=== PATIENT | female | born 1975 | race Caucasian/White ===

== ENCOUNTER 2020-01-28 10:24 | Emergency (ER) | payer OTHER ==
--- OUTSIDE RECORDS SUMMARY | 2020-01-28 10:27 | XMS REPORT | Clinical Summary ---
:1975 Author Organization [facility] Distr ict Address [facility] [place] [address] Care Team Providers Name Role Phone Jenny Schneider MD Primary Care Provider Allergies Active Allergy Reactions Severity Noted Date Comments Morphine Itching 09/17/2009 Medications Medication Sig Dispensed Refills Start Date End Date Status divalproex (DEPAKOTE Take 1 tablet 60 tablet 3 07/14/2016 Active ER) 500 mg extended by mouth 2 release times daily. tabletIndications: Mood disorder risperiDONE (RISPERDAL) Take 1 tablet 30 tablet 2 09/17/2016 Active 2 mg tabletIndications: by mouth at Mood disorder bedtime nightly. clonazePAM (KLONOPIN) Take 1 tablet 40 tablet 0 09/17/2016 Active 0.5 mg by mouth 2 tabletIndications: Mood times daily as disorder needed for Anxiety. estrogens, conjugated, Take 1 tablet 30 tablet 6 12/31/2016 Active (PREMARIN) 0.3 mg by mouth daily. tabletIndications: Menopausal syndrome (hot flashes) pbaebtx-hmxx-krbmxi-ten Take 1 tablet 30 tablet 6 01/06/2017 Active ofo ala (GENVOYA) by mouth daily. [phone] mg tabletIndications: Human immunodeficiency virus (HIV) disease omeprazole (PRILOSEC) Take 1 capsule 30 capsule 6 01/06/2017 Active 20 mg delayed release by mouth daily. capsuleIndications: Peritonitis acetaminophen-codeine Take 1 tablet 60 tablet 1 02/09/2017 Active (TYLENOL #3) 300-30 mg by mouth 2 per tabletIndications: times daily as Chronic pain syndrome needed for Pain. cyclobenzaprine Take 1 tablet 60 tablet 2 02/09/2017 Active (FLEXERIL) 10 mg by mouth 2 tabletIndications: times daily as Spasm of muscle needed for Muscle Spasms. gabapentin (NEURONTIN) Take 2 capsules 150 capsule 2 7 Active 300 mg by mouth every capsuleIndications: morning and Mood disorder every evening, and take 1 capsule at noon. promethazine Take 1 tablet 60 tablet 6 02/09/2017 Ac tive (PHENERGAN) 25 mg by mouth 2 tabletIndications: times daily as Non-intractable needed for vomiting with nausea, Nausea or unspecified vomiting Vomiting. type hydrOXYzine (ATARAX) 25 Take 1 tablet 90 tablet 0 03/29/2018 Active mg tabletIndications: by mouth every Mood disorder 8 hours as needed for Anxiety or Insomnia. FLUoxetine (PROZAC) 20 Take 1 capsule 30 capsule 0 08/17/2018 Active mg capsuleIndications: by mouth daily. Mood disorder OLANZapine (ZYPREXA) 5 Take 2 tablets 30 tablet 0 08/17/2018 Active mg tabletIndications: by mouth at Mood disorder bedtime nightly. divalproex (DEPAKOTE) Take 1 tablet 60 tablet 0 08/17/2018 Active 500 mg delayed release by mouth 2 tabletIndications: Mood times daily. disorder Active Problems Problem Noted Date History of cellulitis 01/06/2017 Peritonitis 12/29/2016 Chronic pain syndrome 11/06/2016 Elbow pain, chronic 05/30/2016 Human immunodeficiency virus (HIV) disease 03/28/2016 Chronic hepatitis C without hepatic coma 03/28/2016 Polysubstance abuse 03/28/2016 Non-intractable vomiting with nausea 03/28/2016 Anxiety 01/13/2015 Mood disorder 01/13/2015 MDD (major depressive disorder), recurrent episode, se zach 01/13/2015 Immunizations Name Administration Dates Next Due PPD 01/19/2015, 11/13/2014 Pneumococcal 13-valent conj 0.5 mL injection 03/28/2016 Tdap Tetanus, diphtheria, acellular pertussis Vaccine 2013 Family History Medical History Relation Name Comments Unknown Fam Hx Father Cancer Mother HAD A HYSTERECTO MY Psychiatry Mother Relation Name Status Comments Daughter Alive Daughter Alive Father Alive Mother Mother Alive Sister Alive Sister Alive Sister Alive Son Alive Social History Tobacco Use Types Packs/Day Years Used Date Current Every Day Smoker Cigarettes 0.5 25 Smokeless Tobacco: Never Used Tobacco Cessation: Ready to Quit: No; Co unseling Given: No Alcohol Use Drinks/Week oz/Week Comments No 0 Standard drinks or equivalent 0.0 H/O liquor. last used 78 days ago Food Insecurity Answer Date Recorded Within the past 12 months, you worried that your food would Never true 01/06/2017 run out before you got money to buy more. Within the past 12 months, the food you bought just didn't N ever true 01/06/2017 last and you didn't have money to get more. Sex Assigned at Date Recorded Not on file Job Start Date Occupation Industry Not on file Not on file Not on file Travel History Travel Start Travel End No recent travel history available. Last Filed Vital Signs Not on file Plan of Treatment Health Maintenance Due Date Last Done Comments Breast Cancer Scrn (Yearly) 2013 IMM Influenza Seasonal Mar to August (>/= 19 yrs) 03/22/2020 Results Not on fileafter 01/27/2019 Insurance Payer Benefit Plan / Subscriber ID Effective Phone Address T ype Group Dates [employer] AMER[employer] STAR xxxxxxxxx 2017-Prese [phone] [address] [id number] [place] [address] [employer] SSI xxxxxxxxx 2017-Prese [phone] [address] MEDICAID [address]MO [address] [id number] [place] [address] [place] 2016-Pres [phone] [facility] ent [address] [place] [address] Amanda Heath Self 1975 <<<renzo Fu (Home) returned mail>>> [place] [id number] Advance Directives Code Status Date Activated Date Inactivated Comments Full Code 08/10/2015 8:22 AM 08/12/2015 11:45 PM
--- OUTSIDE RECORDS SUMMARY | 2020-01-28 10:27 | XMS REPORT | Continuity of Care Document ---
:1975 Author Organization [facility] [place] [employer] Care Team Providers Name Role Phone [facility] [place] [employer] Unavailable Un available Problems Problem Status Onset Classification Date Comments Sourc e Date Reported Z00.[address] ENCNTR FOR Active [facility] MEDICAL EXAM W/ Medications No Data Provided for This Section Allergies, Adverse Reactions, Alerts No Known Medication Allergies Immunizations No Data Provided for This Section Results No Data Provided for This Section Pathology Reports No Data Provided for This Section Diagnostic Reports No Data Provided for This Section Consultation Notes No Data Provided for This Section Discharge Summaries No Data Provided for This Section History and Physicals No Data Provided for This Section Vital Signs No Data Provided for This Section Encounters Location Location Encounter Encounter Reason Attending ADM CA Stat us Source Details Type Number For Provider Date Date Visit [facility] Outpatient [id number] Fatimah 05/01 05/02 [facility] [place] /2014 [facility] Procedures No Data Provided for This Section Assessment and Plan No Data Provided for This Section Plan of Care No Data Provided for This Section Social History Social History Date Source No data available for this 05/02/2015 [facility] section Family History No Data Provided for This Section Advance Directives No Data Provided for This Section Functional Status No Data Provided for This Section
--- OUTSIDE RECORDS SUMMARY | 2020-01-28 10:28 | XMS REPORT | Continuity of Care Document ---
:1975 Author Organization [facility] t Address [address] [place] [address] Care Team Providers Name Role Phone UNKNOWN Primary Care Physician Unavailable Amish FLORES Attending Clinician Unavailable Francis Song Attending Clinician Amish FLORES Admitting Clinician Unavailable Problems Condition Condition Condition Status Onset Resolution Last Treating Co mments Source Name Details Category Date Date Treatment Clinician Date Z00.00 Diagnosis Active 2014-062015-05-01 Mem oria 10 13:32:00 l Z00.00 00:00: Yfn 00 Active 05/01/2015 [facility] ENCNTR FOR Diagnosis Active 2015-05-01 Memoria GENERAL 13:32:00 l ADULT ENCNTR [place] MEDICAL FOR EXAM W/ GENERAL ADULT MEDICAL EXAM W/ Active [facility] Allergies, Adverse Reactions, Alerts This patient has no known allergies or adverse reactions. Social History Social Habit Start Date Stop Date Quantity Comments Source Social History 2015-05-02 2015-05-02 [facility] 05:59:00 05:59:00 Medications This patient has no known medications. Procedures This patient has no known procedures. Encounters Start End Encounter Admission Attending Care Care Encounter Source Date/Time Date/Time Type Type Clinicians Facility Department ID 2016-03-07 Inpatient [facility] MED [id number] St. 15:30:00 [facility] 2018-05-03 2018-05-03 Outpatient [facility] [id number] [facility] 00:00:00 00:00:00 2018-04-07 2018-04-07 Outpatient [facility] [id number] [facility] 00:00:00 00:00:00 2018-03-29 2018-03-29 Outpatient [facility] [id number] [facility] 15:40:27 15:40:27 2018-03-29 2018-03-29 Outpatient [facility] [id number] [facility] [place] 15:07:58 15:07:58 2018-03-29 2018-03-29 Outpatient [facility] [id number] [facility] [place] 14:41:19 14:41:19 2015-05-01 2015-05-01 Outpatient [facility] [id number] 13:22:00 23:59:00 Fatimah Myersamish Results Test Description Test Time Test Comments Results Result Comments Source Culture, Blood 2016-12-29 Specimen: Routine 19:17:00 BloodCollected: 12/24/2016 12:51 Status: Final Last Updated: 12/29/2016 19:17 (1) ER Bed 16 Culture Result (Final) (Final) No Growth After 5 Days Culture, Blood 2016-12-29 Specimen: Routine 19:17:00 BloodCollected: 12/24/2016 12:15 Status: Final Last Updated: 12/29/2016 19:17 (1) ER Bed 16 Culture Result (Final) (Final) No Growth After 5 Days Olden T-Lymph-CD4 2016-12-26 17:23:00 Test Item Value Reference Range Interpretation Comme nts % CD 4 Pos. Lymph. (test code = 712313) 36.2 % 30.8-58.5 N Absolute CD 4 Olden (test code = 537380) 543 /uL 359-1519 N WBC (test code = 285074) 10.2 x10E3/uL 3.4-10.8 N RBC (test code = 490737) 3.31 x10E6/uL 3.77-5.28 L Hemoglobin (test code = 280408) 10.6 g/dL 11.1-15.9 L Hematocrit (test code = 159634) 30.9 % 34.0-46.6 L MCV (test code = 792268) 93 fL 79-97 N MCH (test code = 969431) 32.0 pg 26.6-33.0 N MCHC (test code = 958861) 34.3 g/dL 31.5-35.7 N RDW (test code = 578664) 14.5 % 12.3-15.4 N Platelets (test code = 317695) 201 x10E3/uL 150-379 N Neutrophils (test code = 986700) 75 % Lymphs (test code = 499574) 15 % Monocytes (test code = 552143) 10 % Eos (test code = 518199) 0 % Basos (test code = 442395) 0 % Neutrophils (Absolute) (test code = 272618) 7.6 x10E3/uL 1.4-7.0 H Lymphs (Absolute) (test code = 694154) 1.5 x10E3/uL 0.7-3.1 N Monocytes(Absolute) (test code = 178990) 1.1 x10E3/uL 0.1-0.9 H Eos (Absolute) (test code = 773441) 0.0 x10E3/uL 0.0-0.4 N Baso (Absolute) (test code = 813539) 0.0 x10E3/uL 0.0-0.2 N Immature Granulocytes (test code = 818167) 0 % Immature Grans (Abs) (test code = 167741) 0.0 x10E3/uL 0.0-0.1 N Valproic Acid (Depakote),[id number] 09:53:00 Test Item Value Reference Range Interpretation Comments Valproic Acid (test code = VALP) 104.1 ug/mL 50.0-100.0 H Ammonia, [id number] 08:01:00 Test Item Value Reference Range Interpretation Comments Ammonia (test code = NH3) 101.0 umol/L 11.0-35.0 H Glycosylated [id number] 07:07:00 Test Item Value Reference Range Interpretation Comments HBA1c (test code = HBA1C) 4.8 % 4.8-5.9 N Partial Thromboplastin [id number] 06:51:00 Test Item Value Reference Range Interpretation Comments aPTT (test code = PTT) 31.30 seconds 24.39-37.25 N Magnesium, [id number] 06:48:00 Test Item Value Reference Range Interpretation Comments Magnesium (test code = MG) 2.4 mg/dL 1.7-2.5 N Comprehensive Metabolic [id number] 06:48:00 Test Item Value Reference Range Interpretation Comments Sodium (test code = 132 mmol/L 135-145 L NA) Potassium (test 3.6 mmol/L 3.5-5.1 N code = K) Chloride (test code 100 mmol/L 98-105 N = CL) Carbon Dioxide 23 mmol/L 22-29 N (test code = CO2) Glucose (test code 91 mg/dL 70-115 N = GLU) Blood Urea Nitrogen 11 mg/dL 6-20 N (test code = BUN) Creatinine (test 0.6 mg/dL 0.5-0.9 N code = CREAT) Calcium (test code 8.4 mg/dL 8.3-10.5 N = CA) Prot Total (test 6.4 g/dL 6.4-8.3 N code = TP) Albumin (test code 3.5 g/dL 3.5-5.2 N = ALB) A/G Ratio (test 1.2 Ratio code = AGRATIO) Globulin (test code 2.9 2.9-3.1 N = GLOB) Bili Total (test 0.6 mg/dL 0.1-0.9 N code = TBIL) Alk Phos (test code 64 U/L 35-104 N = APHOS) AST (test code = 28 U/L 1-32 N AST) ALT (test code = 23 U/L 1-33 N ALT) BUN/Creatinine 18.3 Ratio (test code = BCRATIO) Anion Gap (test 9 mmol/L 7-16 N code = AGAP) Estimated GFR (test >60 eGFR (es timated code = GFR) mL/min/1.73m2 Glomerular Milo tration Rate) is an est imated value,calculate d from the patient's s chinedu creatinine usin g the MDRD equation.I t is NOT the patient 's actual GFR. The eGFR provides a more clinicallyusefu l measure of kidn ey disease than se rum creatinine alone.This calculation bhavani es sex and race into account, if the informationis provided. If th e race is not provided , and the patient isAfrican-Ameri can, multiply by 1.2 12. If sex is not prov ided, and thepatient is female, multipl y by 0.742. Results for patients <18 ye ars ofage have not been validated by th e MDRD study and shoul d be interpretedwith caution.eGFR Re sult Interpretation: eGFR > or = 60 is in t he Normal RangeeGF R < 60 may mean kidney diseaseeGFR < 1 5 may mean kidney failureRange s recommended by the National Kidney Foundation,http ://nkd ep.nih.gov CK [id number] 06:48:00 Test Item Value Reference Range Interpretation Comments CK (test code = CK) 167 U/L 26-192 N [id number] 06:48:00 Test Item Value Reference Range Interpretation Comments Phosphorus (test code = PO4) 2.3 mg/dL 2.70-4.50 L Prothrombin [id number] 06:47:00 Test Item Value Reference Range Interpretation Comments PT (test code = PT) 11.90 seconds 9.78-13.35 N INR (test code = INR) 1.04 Ratio 0.6-1.2 N CBC with [id number] 06:36:00 Test Item Value Reference Range Interpretation Comments WBC (test code = WBC) 9.9 K/cumm 4.4-10.5 N RBC (test code = RBC) 3.26 M/cumm 3.75-5.20 L Hemoglobin (test code = HGB) 10.3 gm/dL 12.2-14.8 L Hematocrit (test code = HCT) 31.0 % 36.5-44.4 L MCV (test code = MCV) 95.3 fL 80-100 N MCH (test code = MCH) 31.6 pg 27.0-32.5 N MCHC (test code = MCHC) 33.1 g/dL 32.0-37.5 N RDW (test code = RDW) 14.5 % 11.5-14.5 N Platelet Count (test code = 192 K/cumm 140-440 N PLTCT) MPV (test code = MPV) 8.4 fL Diff Method (test code = DIFFM) Auto Neutrophil (test code = NEUT) 75.0 % 36-70 H Lymphocyte (test code = LYMPH) 17.5 % 12-44 N Monocyte (test code = MONO) 6.6 % 0-11 N Eosinophil (test code = EOS) 0.7 % 0-7 N Basophil (test code = BASO) 0.2 % 0-2 N Neutro Abs (test code = ANEUT) 7.4 K/cumm 1.6-7.4 N Lymph Abs (test code = ALYMPH) 1.7 K/cumm 0.5-4.6 N [place] Abs (test code = AMONO) 0.7 K/cumm 0.0-1.2 N Eos Abs (test code = AEOS) 0.07 K/cumm 0.00-0.74 N Baso Abs (test code = ABASO) 0.0 K/cumm 0.00-0.21 N POC Glucose, [id number] 20:36:00 Test Item Value Reference Range Interpretation Comments POC Glucose (test 100 mg/dL 70-115 N If you con gear repairer your code = POCGLUC) patient crit ically ill, the [place] Accu- Chek InformII meters hould not be used for Glu cose determinations. Draw a venous Glucose and send to the Main Lab for Analysis. POC Glucose, [id number] 17:15:00 Test Item Value Reference Range Interpretation Comments POC Glucose (test 93 mg/dL 70-115 N Notify RN or MDIf you code = POCGLUC) consider you r patient critically ill, the [place] Accu-Chek InformII metershould not be used for Glucose determinations. Draw a venous Glucose and send to the Main Lab for Analysis. [id number] 17:11:00 Test Item Value Reference Range Interpretation Comments Potassium (test code 2.9 mmol/L 3.5-5.1 LL VERIFIE D BY REPEAT = K) TESTINGREAD SUSANNAH K LAB VALUEST KATHERINE ELLSWORTH 17:11 7 OG [id number] 10:49:00 Test Item Value Reference Range Interpretation Comments Amphetamine (test code Negative Negative N For d iagnostic purposes = AMPH) only, positive results should always b e assessedin conjunctionwith the patient's medic al history,clinica l examination and otherfindings.T o fulfill legal requirements, a more specific altern ate chemical method must be used inorder to obtain a Confirmed erick lytical result. GC/MS i s the preferred confi rmatory method. Barbiturates (test Negative Negative N code = JOSE LUIS) Benzodiazepine (test Negative Negative N code = MARTHA) Cocaine (test code = POSITIVE Negative A COCA) Methadone (test code = Negative Negative N MTHD) Opiates (test code = Negative Negative N OPIA) PCP (test code = PCP) POSITIVE Negative A Propoxyphene (test Negative Negative N code = PROPOX) THC (test code = THC) POSITIVE Negative A Urinalysis [id number] 09:18:00 Test Item Value Reference Range Interpretation Comments Color (test code = COLOR) Yellow Yellow,Straw,Pl N yellow Clarity (test code = Clear Clear N CLAR) Specific [place] (test 1.012 1.001-1.035 N code = SPGR) pH (test code = PH) 7.0 5.0-9.0 N Ketone (test code = KET) 5 mg/dL Negative A Glucose (test code = Negative mg/dL Negative N GLUCUR) Protein (test code = 25 mg/dL Negative A PROT) Bilirubin (test code = Negative mg/dL Negative N BILI) Occult Blood (test code = Mod to Large Negative A UDOB) Urobilinogen (test code = 1.0 mg/dL 0.2-1.0 N UROB) Nitrite (test code = NIT) Positive Negative A Leuk Esterase (test code Moderate Negative A = LEUK) Micros Exam (test code = Indicated MEXAM) Epithelial Cells (test 3-5 /LPF 0-30 A code = EPI) WBC, Urine (test code = 6-9 /HPF 0-5 A UWBC) RBC, Urine (test code = 0-3 /HPF 0-5 A URBC) Bacteria (test code = Moderate /HPF BACT) CK [id number] 09:12:00 Test Item Value Reference Range Interpretation Comments CK (test code = CK) 389 U/L 26-192 H CK [id number] 09:12:00 Test Item Value Reference Range Interpretation Comments CK (test code = CK) 389 U/L 26-192 H CKMB (test code = CKMB) 7.6 ng/mL 0.0-2.8 H CKMB% (test code = CKMBP) 2.0 % 0.0-3.4 N Troponin [id number] 09:11:00 Test Item Value Reference Range Interpretation Comments Troponin T (test code = KARSTEN) <0.010 ng/mL 0.000-0.090 N CBC with [id number] 09:01:00 Test Item Value Reference Range Interpretation Comments WBC (test code = WBC) 18.6 K/cumm 4.4-10.5 H RBC (test code = RBC) 3.80 M/cumm 3.75-5.20 N Hemoglobin (test code = HGB) 11.7 gm/dL 12.2-14.8 L Hematocrit (test code = HCT) 35.3 % 36.5-44.4 L MCV (test code = MCV) 92.8 fL 80-100 N MCH (test code = MCH) 30.9 pg 27.0-32.5 N MCHC (test code = MCHC) 33.3 g/dL 32.0-37.5 N RDW (test code = RDW) 14.9 % 11.5-14.5 H Platelet Count (test code = 248 K/cumm 140-440 N PLTCT) MPV (test code = MPV) 8.9 fL Diff Method (test code = DIFFM) Auto Neutrophil (test code = NEUT) 76.2 % 36-70 H Lymphocyte (test code = LYMPH) 17.5 % 12-44 N Monocyte (test code = MONO) 5.1 % 0-11 N Eosinophil (test code = EOS) 0.8 % 0-7 N Basophil (test code = BASO) 0.3 % 0-2 N Neutro Abs (test code = ANEUT) 14.2 K/cumm 1.6-7.4 H Lymph Abs (test code = ALYMPH) 3.3 K/cumm 0.5-4.6 N [place] Abs (test code = AMONO) 1.0 K/cumm 0.0-1.2 N Eos Abs (test code = AEOS) 0.15 K/cumm 0.00-0.74 N Baso Abs (test code = ABASO) 0.1 K/cumm 0.00-0.21 N Comprehensive Metabolic [id number] 08:53:00 Test Item Value Reference Range Interpretation Comments Sodium (test code = 131 mmol/L 135-145 L NA) Potassium (test 2.6 mmol/L 3.5-5.1 LL code = K) Chloride (test code 88 mmol/L 98-105 L = CL) Carbon Dioxide 26 mmol/L 22-29 N (test code = CO2) Glucose (test code 85 mg/dL 70-115 N = GLU) Blood Urea Nitrogen 16 mg/dL 6-20 N (test code = BUN) Creatinine (test 0.8 mg/dL 0.5-0.9 N code = CREAT) Calcium (test code 9.1 mg/dL 8.3-10.5 N = CA) Prot Total (test 7.2 g/dL 6.4-8.3 N code = TP) Albumin (test code 4.0 g/dL 3.5-5.2 N = ALB) A/G Ratio (test 1.3 Ratio code = AGRATIO) Globulin (test code 3.2 2.9-3.1 H = GLOB) Bili Total (test 1.1 mg/dL 0.1-0.9 H code = TBIL) Alk Phos (test code 80 U/L 35-104 N = APHOS) AST (test code = 38 U/L 1-32 H AST) ALT (test code = 27 U/L 1-33 N ALT) BUN/Creatinine 20.0 Ratio (test code = BCRATIO) Anion Gap (test 17 mmol/L 7-16 H code = AGAP) Estimated GFR (test >60 eGFR (es timated code = GFR) mL/min/1.73m2 Glomerular Milo tration Rate) is an est imated value,calculate d from the patient's s chinedu creatinine usin g the MDRD equation.I t is NOT the patient 's actual GFR. The eGFR provides a more clinicallyusefu l measure of kidn ey disease than se rum creatinine alone.This calculation bhavani es sex and race into account, if the informationis provided. If th e race is not provided , and the patient isAfrican-Ameri can, multiply by 1.2 12. If sex is not prov ided, and thepatient is female, multipl y by 0.742. Results for patients <18 ye ars ofage have not been validated by th e MDRD study and riyaul d be interpretedwith caution.eGFR Re sult Interpretation: eGFR > or = 60 is in t he Normal RangeeGF R < 60 may mean kidney diseaseeGFR < 1 5 may mean kidney failureRange s recommended by the National Kidney Foundation,http ://nkd ep.nih.gov Alcohol/Ethanol, [id number] 08:52:00 Test Item Value Reference Range Interpretation Comments Alcohol, Ethyl <0.01 g/dL 0.00-0.01 N Intoxicated 0.080 (test code = ETOH) g/dL or m ore [id number] 08:52:00 Test Item Value Reference Range Interpretation Comments Lipase (test code = LIP) 23 U/L 13-60 N Lactic Acid [id number] 08:43:00 Test Item Value Reference Range Interpretation Comments Lactic Acid, Bld (test code = LAC) 1.2 mmol/L 0.5-1.9 N
[2020-01-28 11:21] LABS: Absolute Lymphocytes (CBC) 2.1 K/uL (0.7-4.9); Basophils % 0.9 % (0-1.3); Lymphocytes % 38.4 % (15.3-44.8); MPV 8.1 fL (7.6-11.3); RBC Red Blood Cell Count 4.69 M/uL (3.86-4.86)
[2020-01-28 11:24] LABS: Urine Blood 2+ (NEG); Urine Glucose NEGATIVE (NEG); Urine Protein 1+ (NEG); Urine Specific Gravity 1.025 (1.005-1.030); Urine pH 6.5 (5.0-7.0)
[2020-01-28] MEDS ORDERED: NA CHLORIDE 0.9% 1,000 ML ONE (11:31)
[2020-01-28] MEDS ORDERED: FENTANYL CITR 100 MCG/2 ML ONE (11:31)
[2020-01-28] MEDS ORDERED: ONDANSETRON 4 MG/2 ML VIAL ONE (11:31)
[2020-01-28] MEDS ORDERED: DICYCLOMINE HCL 10 MG CAP ONE (11:31)
[2020-01-28 11:33] LABS: Urine Bacteria >50 /HPF (<20); Urine Culture Reflex Order REFLEXED
[2020-01-28 11:40] LABS: Albumin 3.1 g/dL (3.4-5.0); Bilirubin Direct 0.1 mg/dL (0-0.2); Bilirubin Total 0.3 mg/dL (0.2-1.0); Potassium 3.7 mmol/L (3.5-5.1); Protein, Total 8.3 g/dL (6.4-8.2)
[2020-01-28] MEDS ORDERED: PROMETHAZINE INJ 25 MG/ML AMP ONE (11:46)
[2020-01-28] MEDS ORDERED: CEFTRIAXONE/SWI 1gm 1 GM/10 ML SYR ONE (11:46)
--- NOTE | 2020-01-28 12:25 | RAD REPORT ---
EXAM DESCRIPTION: RAD - Chest Single View - 01/28/2020 11:52 am CLINICAL HISTORY: COUGH, body aches, chills, decreased taste and smell COMPARISON: AP chest July 2010 TECHNIQUE: AP portable chest image was obtained 01/28/2020 11:52 am . FINDINGS: Minimal right apical scarring changes are present not substantially different from compari son. No focal consolidation or mass. Hilar regions are normal. No ground-glass opacification seen whi ch is the typical appearance for a COVID-19 pneumonia. Heart and vasculature are normal. No measurabl e pleural effusion and no pneumothorax. No acute bony abnormality seen. No acute aortic findings susp ected. IMPRESSION: No focal infiltrate. No parenchymal findings suggestive of a COVID-[address] chest imaging is more sensitive for early or mild COVID-19 or other similar pneumonia findings. Co ntrast-enhanced CT chest imaging could be performed if it would alter medical management.
--- NOTE | 2020-01-28 13:16 | ER ---
Nurse's Notes [facility] Name: Amanda Singh Age: 44 yrs Sex: Female : 1975 Arrival Date: 01/28/2020 Time: 10:27 Bed 19 Private MD: Diagnosis: Encounter for screening for other viral diseases;Gastroenteritis;Urinary tract infection, site not specified Presentation: 01/27 10:38 Chief complaint: Patient states: Abdominal pain all over with N/V/D, pt states no taste ah or smell. She complains that she is achy all over and having night sweats. Productive cough also noted. Coronavirus screen: Client denies travel out of the [place] in the last 14 days. cough unrelated to allergies, diarrhea, muscle pain, nausea, loss of taste or smell, vomiting. Client presents with at least one sign or symptom that may indicate coronavirus-19. Standard/surgical mask placed on the client. Provider contacted for isolation considerations. Ebola Screen: No symptoms or risks identified at this time. Initial Sepsis Screen: Does the patient meet any 2 criteria? No. Patient's initial sepsis screen is negative. Risk Assessment: Do you want to hurt yourself or someone else? Patient reports no desire to harm self or others. Onset of symptoms is unknown. 10:38 Method Of Arrival: Ambulatory 10:38 Acuity: ISAI 3 13:45 Initial Sepsis Screen: Does the patient have a suspected source of infection? Yes: ah Dysuria/Frequency/Urgency/UTI. Historical: - Allergies: 10:42 No Known Allergies; - Home Meds: 10:42 Phenergan Oral [Active]; - PMHx: 10:42 Hepatitis; HIV; - PSHx: 10:42 Hysterectomy; - Immunization history:: Adult Immunizations up to date. - Social history:: Smoking status: Patient reports the use of cigarette tobacco products, smokes one-half pack cigarettes per day, Patient uses alcohol, occasionally. Patient/guardian denies using street drugs. Screenin:07 Abuse screen: Denies threats or abuse. Nutritional screening: No deficits noted. Tuberculosis screening: No symptoms or risk factors identified. Fall Risk None identified. Assessment: 11:04 General: Appears uncomfortable, Behavior is cooperative, anxious. Pain: Complains of pain in all over generalized. Neuro: Level of Consciousness is awake, alert, obeys commands, Oriented to person, place, time, situation. Cardiovascular: Capillary refill < 3 seconds Patient's skin is warm and dry. Respiratory: Airway is patent Respiratory effort is even, unlabored. GI: Bowel sounds present X 4 quads. Abdomen is tender to palpation X 4 quads. Reports diarrhea, nausea, vomiting. Derm: Skin is intact. Musculoskeletal: Reports pain in muscle aches all over. 12:30 Reassessment: Pt resting in bed at this time. No vomiting noted. Awaiting lab results. 13:43 Reassessment: Discharge instructions given to pt, education given on prescriptions and the need to quarantine. Pt voiced understanding. Vital Signs: 10:38 BP 148 / 106; Pulse 84; Resp 18; Temp 98.2; Pulse Ox 99% ; Height 5 ft. 7 in. (170.18 cm); 11:15 BP 129 / 101; Pulse 68; Resp 16; Pulse Ox 98% ; ah 13:00 BP 124 / 81; Pulse 49; Resp 16; Pulse Ox 100% ; ah ED Course: 10:27 Patient arrived in ED. ag5 10:30 Kilo Hand PA is PHCP. jr8 10:30 Tim Philip MD is Attending Physician. jr 10:31 Malia Frankel, RN is Primary Nurse. 10:41 Triage completed. ah 11:07 Arm band placed on right wrist. ah 11:07 Patient has correct armband on for positive identification. Bed in low position. Call light in reach. Side rails up X 1. Pulse ox on. NIBP on. 11:45 Inserted saline lock: 22 gauge antecubital area, using aseptic technique. 11:46 COVID-19 Sent. 13:44 No provider procedures requiring assistance completed. IV discontinued, intact, bleeding controlled, No redness/swelling at site. Pressure dressing applied. Administered Medications: 11:34 Drug: Bentyl 20 mg Route: PO; 11:35 Not Given (Physician Discretion): Zofran (Ondansetron) 4 mg IVP once; over 2 minutes [facility] 11:35 Drug: fentaNYL (PF) 25 mcg Route: IVP; Site: left antecubital; 12:55 Follow up: Response: No adverse reaction 11:35 Drug: NS 0.9% 1000 ml Route: IV; Rate: 1000 ml; Site: left antecubital; 12:54 Follow up: Response: No adverse reaction; IV Status: Completed infusion 11:40 Drug: Promethazine 12.5 mg Route: IVP; Site: left antecubital; 12:54 Follow up: Response: No adverse reaction 11:40 Drug: Rocephin 1 grams Route: IV; Rate: calculated rate; Site: left antecubital; 12:54 Follow up: Response: No adverse reaction; IV Status: Completed infusion Outcome: 13:15 Discharge ordered by MD. curtis 13:45 Discharged to home ambulatory. 13:45 Condition: good 13:45 Discharge instructions given to patient, Instructed on discharge instructions, follow up and referral plans. Demonstrated understanding of instructions, follow-up care, medications, Prescriptions given X 3. 13:45 Patient left the ED. Signatures: Kilo Hand PA PA jr8 Argentina Schmitz 5 Malia Frankel, RN RN
--- NOTE | 2020-01-28 13:16 | EDPHYS ---
Physician Documentation [facility] Name: Amanda Singh Age: 44 yrs Sex: Female : 1975 Arrival Date: 01/28/2020 Time: 10:27 Bed 19 Private MD: ED Physician Tim Philip HPI: 01/27 11:28 This 44 yrs old Female presents to ER via Ambulatory with complaints of jr8 Nausea/Vomiting/Diarrhea, Body Aches. 11:28 The patient presents to the emergency department with nausea, vomiting, diarrhea, jr8 abdominal pain. Onset: The symptoms/episode began/occurred gradually, 1 week(s) ago. Possible causes: unknown. The symptoms are aggravated by nothing. The symptoms are alleviated by nothing. Associated signs and symptoms: Pertinent positives: loss of taste and smell. Severity of symptoms: At their worst the symptoms were moderate in the emergency department the symptoms are unchanged. The patient has not experienced similar symptoms in the past. The patient has not recently seen a physician. Historical: - Allergies: 10:42 No Known Allergies; - Home Meds: 10:42 Phenergan Oral [Active]; - PMHx: 10:42 Hepatitis; HIV; - PSHx: 10:42 Hysterectomy; - Immunization history:: Adult Immunizations up to date. - Social history:: Smoking status: Patient reports the use of cigarette tobacco products, smokes one-half pack cigarettes per day, Patient uses alcohol, occasionally. Patient/guardian denies using street drugs. ROS: 11:28 Eyes: Negative for injury, pain, redness, and discharge, ENT: Negative for injury, jr8 pain, and discharge, Neck: Negative for injury, pain, and swelling, Cardiovascular: Negative for chest pain, palpitations, and edema, Respiratory: Negative for shortness of breath, cough, wheezing, and pleuritic chest pain, Back: Negative for injury and pain, MS/Extremity: Negative for injury and deformity, Skin: Negative for injury, rash, and discoloration. 11:28 Constitutional: Positive for body aches, chills, fever. 11:28 Abdomen/GI: Positive for nausea, vomiting, and diarrhea, abdominal cramps, Negative for hematemesis, black/tarry stool, rectal pain, rectal bleeding, bowel incontinence, flatulence. 11:28 Neuro: Positive for headache. Exam: 11:28 Eyes: Pupils equal round and reactive to light, extra-ocular motions intact. Lids and jr8 lashes normal. Conjunctiva and sclera are non-icteric and not injected. Cornea within normal limits. Periorbital areas with no swelling, redness, or edema. ENT: Nares patent. No nasal discharge, no septal abnormalities noted. Tympanic membranes are normal and external auditory canals are clear. Oropharynx with no redness, swelling, or masses, exudates, or evidence of obstruction, uvula midline. Mucous membranes moist. Neck: Trachea midline, no thyromegaly or masses palpated, and no cervical lymphadenopathy. Supple, full range of motion without nuchal rigidity, or vertebral point tenderness. No Meningismus. Cardiovascular: Regular rate and rhythm with a normal S1 and S2. No gallops, murmurs, or rubs. Normal PMI, no JVD. No pulse deficits. Respiratory: Lungs have equal breath sounds bilaterally, clear to auscultation and percussion. No rales, rhonchi or wheezes noted. No increased work of breathing, no retractions or nasal flaring. Abdomen/GI: Soft, non-tender, with normal bowel sounds. No distension or tympany. No guarding or rebound. No evidence of tenderness throughout. Back: No spinal tenderness. No costovertebral tenderness. Full range of motion. Skin: Warm, dry with normal turgor. Normal color with no rashes, no lesions, and no evidence of cellulitis. MS/ Extremity: Pulses equal, no cyanosis. Neurovascular intact. Full, normal range of motion. Neuro: Awake and alert, GCS 15, oriented to person, place, time, and situation. Cranial nerves II-XII grossly intact. Motor strength 5/5 in all extremities. Sensory grossly intact. Cerebellar exam normal. Vital Signs: 10:38 BP 148 / 106; Pulse 84; Resp 18; Temp 98.2; Pulse Ox 99% ; Height 5 ft. 7 in. (170.18 ah cm); 11:15 BP 129 / 101; Pulse 68; Resp 16; Pulse Ox 98% ; ah 13:00 BP 124 / 81; Pulse 49; Resp 16; Pulse Ox 100% ; ah MDM: 10:30 Patient medically screened. [facility] 13:13 Data reviewed: vital signs, nurses notes, lab test result(s), radiologic studies, plain [facility] films. Data interpreted: Pulse oximetry: on room air is 100 %. Interpretation: normal. Counseling: I had a detailed discussion with the patient and/or guardian regarding: the historical points, exam findings, and any diagnostic results supporting the discharge/admit diagnosis, lab results, radiology results, the need for outpatient follow up, a family practitioner, to return to the emergency department if symptoms worsen or persist or if there are any questions or concerns that arise at home. ED course: Discussed with patient that she most likely has COVID based on symptoms along with having UTI. Will be on Abx for uti along with nausea medications and something for pain. Need to isolate for now until swab comes back and f/u with pcp. If worse to come back to ED . 01/27 10:41 Order name: Basic Metabolic Panel [facility] 01/27 10:41 Order name: CBC with Diff [facility] 01/27 10:41 Order name: Hepatic Function [facility] 01/27 10:41 Order name: Lipase [facility] 01/27 10:41 Order name: Urine Microscopic Only [facility] 01/27 11:10 Order name: Urine Dipstick--Ancillary (enter results) 01/27 11:10 Order name: Urine --Ancillary (enter results) 01/27 11:15 Order name: COVID-19 [facility] 01/27 11:24 Order name: Urine --Ancillary; Complete Time: 11:27 [facility] 01/27 11:24 Order name: Urine Dipstick-Ancillary; Complete Time: 11:27 [facility] 01/27 11:25 Order name: CBC with Automated Diff; Complete Time: 11:27 [facility] 01/27 11:34 Order name: Urine Microscopic Only; Complete Time: 11:35 [facility] 01/27 11:40 Order name: Basic Metabolic Panel; Complete Time: 12:03 [facility] 01/27 11:40 Order name: Liver (Hepatic) Function; Complete Time: 12:03 [facility] 01/27 10:41 Order name: IV Saline Lock; Complete Time: 11:14 [facility] 01/27 10:41 Order name: Labs collected and sent; Complete Time: 11:14 [facility] 01/27 10:41 Order name: Urine Dipstick-Ancillary (obtain specimen); Complete Time: 10:43 [facility] 01/27 10:41 Order name: Urine Test (obtain specimen); Complete Time: 10:43 [facility] 01/27 11:12 Order name: Labs - recollect needed: recollect labs/ lab is printing labels of what eb needs recollected; Complete Time: 11:16 01/27 11:15 Order name: XRAY Chest (1 view) [facility] 01/27 11:40 Order name: Lipase; Complete Time: 12:03 [facility] 01/27 12:26 Order name: RAD; Complete Time: 13:04 EDMS Administered Medications: 11:34 Drug: Bentyl 20 mg Route: PO; ah 11:35 Not Given (Physician Discretion): Zofran (Ondansetron) 4 mg IVP once; over 2 minutes [facility] 11:35 Drug: fentaNYL (PF) 25 mcg Route: IVP; Site: left antecubital; 12:55 Follow up: Response: No adverse reaction 11:35 Drug: NS 0.9% 1000 ml Route: IV; Rate: 1000 ml; Site: left antecubital; ah 12:54 Follow up: Response: No adverse reaction; IV Status: Completed infusion 11:40 Drug: Promethazine 12.5 mg Route: IVP; Site: left antecubital; ah 12:54 Follow up: Response: No adverse reaction 11:40 Drug: Rocephin 1 grams Route: IV; Rate: calculated rate; Site: left antecubital; 12:54 Follow up: Response: No adverse reaction; IV Status: Completed infusion Disposition: 16:28 Co-signature as Attending Physician, Tim Philip MD. rn Disposition: 01/28/20 13:15 Discharged to Home. Impression: Encounter for screening for other viral diseases, Gastroenteritis, Urinary tract infection, site not specified. - Condition is Stable. - Discharge Instructions: Urinary Tract Infection, Adult, COVID-19. - Prescriptions for Bentyl 20 mg Oral Tablet - take 1 tablet by ORAL route every 6 hours As needed; 20 tablet. Zofran 4 mg Oral Tablet - take 1 tablet by ORAL route every 12 hours As needed; 20 tablet. Bactrim DS 800- 160 mg Oral Tablet - take 1 tablet by ORAL route every 12 hours for 10 days; 20 tablet. - Medication Reconciliation Form, Thank You Letter, Antibiotic Education, Prescription Opioid Use form. - Follow up: Private Physician; When: 2 - 3 days; Reason: Recheck today's complaints, Continuance of care, Re-evaluation by your physician. - Problem is new. - Symptoms have improved. Signatures: Dispatcher [employer] EDTim Low MD MD rn Roszak, Josh, PA PA jr8 Allyssa Mcfarlane Amy RN RN Corrections: (The following items were deleted from the chart) 13:45 13:15 01/28/2020 13:15 Discharged to Home. Impression: Encounter for screening for other viral diseases; Gastroenteritis; Urinary tract infection, site not specified. Condition is Stable. Forms are Medication Reconciliation Form, Thank You Letter, Antibiotic Education, Prescription Opioid Use. Follow up: Private Physician; When: 2 - 3 days; Reason: Recheck today's complaints, Continuance of care, Re-evaluation by your physician. Problem is new. Symptoms have improved. jr8
[2020-01-28 13:53] VITALS: TEMP 98.2
[2020-01-28 13:55] VITALS: BP 124/81; O2SAT 100
== END 2020-01-28 13:45 | disposition home or self-care (01) ==
LOC: ER 10:24
DX: K52.9 Noninfective gastroenteritis and colitis, unspecified (principal); Z20.828 Contact with and (suspected) exposure to other viral communicable diseases; N39.0 Urinary tract infection, site not specified; F17.210 Nicotine dependence, cigarettes, uncomplicated; Z21 Asymptomatic human immunodeficiency virus [HIV] infection status
CPT/HCPCS: 96365; 87088; 85025; 87086; 80048; 36415; 81025; 80076; 87077 ×2; 87186 ×2; 83690; 71045; 96375; 99284; U0002; J2550; J3010; J0696; J7030; 81003; 81015; J2405

== ENCOUNTER 2022-11-19 11:21 | Emergency (ER) | payer OTHER ==
--- OUTSIDE RECORDS SUMMARY | 2022-11-19 11:27 | XMS REPORT | Continuity of Care Document ---
:1975 Author Organization [facility] t Address [address] [place] [address] [place] [id number] Care Team Providers Name Role Phone MARIAMA LAND Primary Care Physician Unavailable Adi Lockwood Attending Clinician Unavailable EVETTE MASON Attending Clinician Unavailable EVETTE MASON Attending Clinician Unavailable Dodie PAC, K Bianca Attending Clinician Beti Berry MD Attending Clinician Dulce Beauchamp Attending Clinician Cricket Monroy MD Attending Clinician Iris Emerson DO Attending Clinician IRIS EMERSON Attending Clinician Unavailable Doctor Unassigned, Bellamy Attending Clinician Unavailable SARAH LINDQUIST Attending Clinician Unavailable MARIAMA LAND Attending Clinician Unavailable YON ELAM Attending Clinician Unavailable SAMIRA ROQUE Attending Clinician Unavailable MANA ALVAREZ Attending Clinician Unavailable MAGGIE FLORES Attending Clinician Unavailable Fatimah Song Attending Clinician BETI BERRY Admitting Clinician Unavailable IRIS EMERSON Admitting Clinician Unavailable MANA ALVAREZ Admitting Clinician Unavailable MAGGIE FLORES Admitting Clinician Unavailable Payers Payer Name Policy Type Policy Number Effective Date Expiration Date Alyse valderrama [place]ICAID OF [place] [id number] 2022 00:00:00 [employer] JOSE [id number] 2017 00:00:00 Problems Condition Condition Condition Status Onset Resolution Last Treating Co mments Source Name Details Category Date Date Treatment Clinician Date Staghorn Staghorn Disease Active Overview: Un tapan calculus calculus 11-10 Formattin ity of 00:00: g of this note Medical might be Branch different from the original. 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 a coli (E. 00 Me dical coli) coli) Branch Pyelonephr Pyelonephr Disease Active U nivers itis itis 11-06 ity of 00:00: Medical Branch Z00.00 Z00.00 Diagnosis Active 2014-062015-05-01 M emoria Active 07-01 13:32:00 l 05/01/2015 00:00: Joe BROWN [address] ENCNTR FOR ENCNTR Diagnosis Active 2015-05-01 Memoria GENERAL FOR 13:32:00 l ADULT GENERAL Yfn MEDICAL ADULT EXAM W/ MEDICAL EXAM W/ Active [facility] Allergies, Adverse Reactions, Alerts Allergy Allergy Status Severity Reaction(s) Onset Inactive Treating Comm ents Source Name Type Date Date Clinician Morphine Propensi Active Rash 2022-0 Univer s ty to 5-12 ity of adverse 00:00: [place] reaction 00 Medical s Branch MORPHINE DRUG Active Rash 0 Univers INGREDI 5-12 ity of 00:00: [place] 00 Medical Branch No Known Propensi Active 2004-06 Univer s Drug ty to 2-16 ity of Allergie adverse 00:00: [place] s reaction 00 Medical s Branch NO KNOWN Drug Active 2004-06 Univers DRUG Class 2-16 ity of ALLERGIE 00:00: [place] S 00 Medical Branch Social History Social Habit Start Date Stop Date Quantity Comments Source History SDOH Social Unive rsity of [employer] [facility] Medical B ranch Together History SDOH Social Unive rsity of [employer] [facility] Medica l Branch History SDOH Social Unive rsity of [employer] Medical Bran h Membership History SDOH Social Unive rsity of [employer] Meetings Medi jeanette Branch Exposure to 2022-10-28 2022-11-07 Not sure [facility] SARS-CoV-2 (event) 00:00:00 10:45:00 Medica l Branch History SDOH Alcohol 2022-11-07 2022-11-07 5 [facility] [place] Frequency 00:00:00 00:00:00 Medical Branch History SDOH Alcohol 2022-11-07 2022-11-07 2 Univ [facility] [place] Std Drinks 00:00:00 00:00:00 Medical Branch History SDOH Alcohol 2022-11-07 2022-11-07 5 Univ [facility] [place] Binge 00:00:00 00:00:00 Medical Branch History SDOH Social 2022-11-07 2022-11-07 5 Unive rsity of [employer] Phone 00:00:00 00:00:00 Medical Branch History SDOH Social 2022-11-07 2022-11-07 5 Unive rsity of [employer] Living 00:00:00 00:00:00 Medica l Branch History SDOH Physical 2022-11-07 2022-11-07 0 Uni [facility] [place] Activity DPW 00:00:00 00:00:00 Medical Bran ch History SDOH Physical 2022-11-07 2022-11-07 0 [facility] Activity MPS 00:00:00 00:00:00 Medical Bran ch History SDOH 2022-11-07 2022-11-07 5 University o [facility] Financial 00:00:00 00:00:00 Medical Branch History SDOH Food 2022-11-07 2022-11-07 1 [facility] [place] Worry 00:00:00 00:00:00 Medical Branch History SDOH Food 2022-11-07 2022-11-07 1 Univers [facility] [place] Scarcity 00:00:00 00:00:00 Medical Branch History SDOH 2022-11-07 2022-11-07 2 [facility] Transport Med 00:00:00 00:00:00 Medical Bra nch History SDOH 2022-11-07 2022-11-07 2 [facility] Transport Non-Med 00:00:00 00:00:00 Medical Branch History SDOH Housing 2022-11-07 2022-11-07 2 [facility] Unable to Pay 00:00:00 00:00:00 Medical Bra nch History SDOH Housing 2022-11-07 2022-11-07 1 [facility] Places Lived 00:00:00 00:00:00 Medical Bran ch History SDOH Housing 2022-11-07 2022-11-07 2 [facility] Homeless Last Year 00:00:00 00:00:00 Medica l Branch Sex [birth year] [facility] 00:00:00 00:00:00 Medical Branch Smoking Status Start Date Stop Date Source Tobacco smoking consumption [facility] Medical unknown Branch Medications Ordered Filled Start Stop Current Ordering Indication Dosage Frequency Signature Comments Components Source Medication Medication Date Date Medication? Clinician (SIG) Name Name fosfomycin Yes [id number] 3g Take 3 g Univers 3 gram 5-28 by mouth ity of packet 00:00: every 72 [place] 00 ([facility] Medical wo) hours. Branch fosfomycin Yes [id number] 3g Take 3 g Univers 3 gram 5-28 by mouth ity of packet 00:00: every 72 [place] 00 (se[facility]y-t Medical wo) hours. Branch gabapentin 2022-0 Yes 300mg Take 1 Univ ers 300 mg 5-26 capsule by ity of capsule 17:32: mouth in [place] [address] the Medical morning Branch and 1 capsule at noon and 1 capsule in the evening. QUEtiapine 2022-0 Yes 200mg Take 1 Univ ers (SEROQUEL) 5-26 tablet by ity of 200 mg 17:32: mouth in [place] [address] the Medical morning Branch and 1 tablet in the evening. FLUoxetine 2022-0 Yes 20mg Take 1 Unive rs (PROZAC) 20 5-26 capsule by it y of mg capsule 17:32: mouth in [place] [address] the Medical morning. Branch varenicline 2022-0 Yes 1mg Take 1 Univ ers 1 mg tablet 5-26 tablet by ity of 17:32: mouth. [place] [address] Medical Branch bictegrav-e 2022-0 2022- Yes [id number] 1{tbl} Take 1 Univers mtricit-ten 5-26 06-26 tablet by it y of ofov ala 00:00: 04:59 mouth in [facility] [place] [facility] 50-200-25 00 :00 the Medical mg tablet morning Branch for 30 days. bictegrav-e 2022-0 2022- Yes [id number] 1{tbl} Take 1 Univers mtricit-ten 5-26 06-26 tablet by it y of ofov ala 00:00: 04:59 mouth in [facility] [place] [facility] 50-200-25 00 :00 the Medical mg tablet morning Branch for 30 days. benzonatate Yes 100mg 100 mg, Un tapan (TESSALON 5-25 Oral, ity of PERLES) 23:37: Q8HPRN, [place] capsule 100 22 Starting Medi jeanette mg on [facility] Branch 11/13/22 at 1837, Until Discontinu ed, Routine, Cough FLUoxetine 2022-0 Yes 20mg 20 mg, Unive rs (PROZAC) 5-25 Oral, ity of capsule 20 15:00: DAILY, [place] mg 00 First dose Medical on [facility] 11/13/22 at 1000, Until Discontinu ed, Routine bictegrav-e 0 Yes 1{tbl} 1 tablet, Univers mtricit-ten 5-25 Oral, ity of ofov ala 14:00: DAILY, [place] (BIKTARVY) 00 First dose Med ical 50-200-25 on [place] Branch mg tablet 1 11/13/22 at tablet 0900, Until Discontinu ed, Routine fosfomycin 0 2022- Yes 3g 3 g, Oral, Univers (MONUROL) 5-25 06-03 Q72H, 3 ity of packet 3 g 14:00: 13:59 doses, [place] 00 :00 First dose Medical on [place] Branch 11/13/22 at 0900, Last dose on Thu11/19/22 at 0900, Routine
Reason for Anti-Infec tive: Documented Infection< br>Documen imelda Infection Site: Urine<b r>Duration of Therapy: Other (see Comments)< br>Restric imelda use approved by: ERIN ROJO, PA gabapentin 2022-0 Yes 300mg Take 1 Univ ers 300 mg 5-25 capsule by ity of capsule 12:09: mouth in [place] 57 the Medical morning Branch and 1 capsule at noon and 1 capsule in the evening. QUEtiapine 2022-0 Yes 200mg Take 1 Univ ers (SEROQUEL) 5-25 tablet by ity of 200 mg 12:09: mouth in [place] tablet 57 the Medical morning Branch and 1 tablet in the evening. FLUoxetine 2022-0 Yes 20mg Take 1 Unive rs (PROZAC) 20 5-25 capsule by it y of mg capsule 12:09: mouth in [facility] as 57 the Medical morning. Branch varenicline 2022-0 Yes 1mg Take 1 Univ ers 1 mg tablet 5-25 tablet by ity of 12:09: mouth. [place] 57 Medical Branch NaCl 0.9% 0 2022- No 500mL at 999 Univ ers (NS) bolus 5-25 05-25 mL/hr, 500 it y of infusion 04:00: 12:32 mL, IV [place] 500 mL 00 :00 Infusion, Medical ONCE, 1 Branch dose, On Thu11/12/22 at 2300, Routine acetaminoph 2022-0 Yes [id number] 1{tbl} Take 1 Un tapan en-codeine 5-25 tablet by ity of (TYLENOL-CO 00:00: mouth [place] DEINE #3) 00 every 6 Medical 300-30 mg (six) Branch tablet hours as needed for Pain (scale 7-10). Indication s: acute pain acetaminoph Yes 4647 1{tbl} Take 1 Un tapan en-codeine 5-25 tablet by ity of (TYLENOL-CO 00:00: mouth [place] DEINE #3) 00 every 6 Medical 300-30 mg (six) Branch tablet hours as needed for Pain (scale 7-10). Indication s: acute pain FENTanyl PF Yes 25ug 25 mcg, Uni vers (SUBLIMAZE 5-25 Slow IV ity of (PF)) 00:00: Push, [place] injection 00 Q8HPRN, Medical 25 mcg Starting Branch on Thu11/12/22 at 1900, Until Discontinu ed, Routine, Pain (scale 7-10) dronabinoL 2022- Yes [id number] 2.5mg Take 1 Univers 2.5 mg 5-25 06-05 capsule by ity of capsule 00:00: 04:59 mouth in [place] 00 :00 [facility] and 1 capsule in the evening. Do all this for 10 days. sennosides 2022- Yes [id number] 8.6mg Take 1 Univers 8.6 mg 5-25 06-05 tablet by ity of tablet 00:00: 04:59 mouth in [place] 00 :00 [facility] and 1 tablet in the evening. Do all this for 10 days. dronabinoL 2022- Yes [id number] 2.5mg Take 1 Univers 2.5 mg 5-25 06-05 capsule by ity of capsule 00:00: 04:59 mouth in [place] 00 :00 the [facility] and 1 capsule in the evening. Do all this for 10 days. sennosides 2022- Yes [id number] 8.6mg Take 1 Univers 8.6 mg 5-25 06-05 tablet by ity of tablet 00:00: 04:59 mouth in [place] 00 :00 [facility] and 1 tablet in the evening. Do all this for 10 days. magnesium 2022- No 1g 1 g, IV Univ ers sulfate in 11-11 Piggyback, it y of D5W 1 16:00: 16:36 ONCE, 1 [place] gram/100 mL 00 :00 dose, On Medi jeanette RTU IV [facility] Piggyback 1 11/11/22 at g 1100, Administer over 60 Minutes, 100 mL sennosides 2022-0 Yes 8.6mg 8.6 mg, Uni vers (SENOKOT) 11-11 Oral, BID, ity of tablet 8.6 15:15: First dose [place] mg 00 on [facility] 11/11/22 at Branch 1015, Until Discontinu ed, Routine polyethylen 2022-0 Yes 17g 17 g, Unive rs e glycol 11-11 Oral, ity of 3350 powder 15:15: DAILY, [place] 17 g 00 First dose Medical on [facility] 11/11/22 at 1015, Until Discontinu ed, Routine bisacodyL 2022-0 Yes 10mg 10 mg, Univer s (DULCOLAX) 11-11 Rectal, ity of suppository 15:09: QHSPRN, [place] as 10 mg 24 Starting Medical on [facility] 11/11/22 at 1009, Until Discontinu ed, Routine, Constipati on, IF CONSTIPATI ON DOESNT RESPOND TO MIRALAX AND SENNOKOT NaCl 0.9% 2022-0 2022- No 500mL at 999 Univ ers (NS) bolus 11-11 05-23 mL/hr, 500 it y of infusion 03:45: 04:36 mL, IV [place] 500 mL 00 :00 Infusion, Medical ONCE, 1 Branch dose, On Thu11/10/22 at 2245, STAT dronabinoL 2022-0 Yes 2.5mg 2.5 mg, Uni vers (MARINOL) 11-11 Oral, BID, ity of capsule 2.5 01:00: First dose [place] mg 00 on [facility] 11/10/22 at Branch 2000, Until Discontinu ed, Routine ondansetron 2022-0 Yes 4mg 4 mg, Slow Univers (ZOFRAN 11-10 IV Push, ity of (PF)) 21:30: Q4HPRN, [place] injection 4 00 Starting Medi jeanette mg on [facility] 11/10/22 at 1630, Until Discontinu ed, Routine, Nausea and Vomiting (N/V) ibuprofen 2022-0 Yes 600mg 600 mg, Univ ers (IBU) 5- Oral, ity of tablet 600 23:46: Q6HPRN, [place] mg 13 Starting Medical on [place] Branch 11/09/22 at 1846, Until Discontinu ed, Routine, Temp > 38.5 C oxyCODONE-a Yes 2{tbl} 2 tablet, Univers cetaminophe 11-09 Oral, ity of n 19:11: Q6HPRN, [place] (PERCOCET) 33 Starting Medic al 5-325 mg on [facility] per tablet 11/09/22 at 2 tablet 1411, Until Discontinu ed, Routine, pain scale 4-10, first line gabapentin Yes 600mg 600 mg, Uni vers (NEURONTIN) 11-09 Oral, TID, it y of capsule 600 19:00: First dose [place] mg 00 (after Medical last Branch modificati on) on [place] 11/09/22 at 1400, Until Discontinu ed, Routine ertapenem 2022- No 1000mg 1,000 mg, Univers (INVANZ) 11-09 IV ity of 1,000 mg in 17:00: 20:24 Piggyback, [place] NaCl 0.9% 00 :42 Q24H ABX, Medic al (NS) 100 mL 7 doses, Bran ch MINI-BAG First dose on 11/09/22 at 1200, Last dose on 11/15/22 at 1200, Administer over 30 Minutes, 100 mL
Reas on for Anti-Infec tive: Documented Infection< br>Documen imelda Infection Site: Urine
D uration of Therapy: 10 days
Re stricted use approved by: Documented ESBL infection or colonizati on in the past 3 months iopamidol 2022- No [id number] 60mL 60 mL, Univers (ISOVUE 11-09 Intravenou ity o f 370-500 mL) 17:00: 17:00 s, ONCE, 1 [place] injection 00 :00 dose, On Medica l 60 mL [place] Branch 11/09/22 at 1200, Routine metoclopram 2022- No 10mg 10 mg, Uni vers efe HCl 11-09 Slow IV ity of (REGLAN) 14:43: 20:24 Push, [place] injection 26 :38 Q6HPRN, Medical 10 mg Starting Branch on [place] 11/09/22 at 0943, Until Thu11/12/22 at 1524, Routine, 2nd line for N/V if zofran doesn't work FENTanyl PF 2022- No 50ug 50 mcg, Un tapan (SUBLIMAZE 11-09 Slow IV ity o f (PF)) 02:43: 23:52 Push, [place] injection 37 :23 Q4HPRN, Medical 50 mcg Starting Branch on 11/08/22 at 2143, Until Thu11/12/22 at 1852, Routine, Pain (scale 7-10) fluticasone Yes 2{spray 2 [place], Univers propionate 11-09 } Nasal, ity of 50 00:45: DAILY, [place] mcg/actuati 00 First dose Me dical on nasal on Sat Branch spray 2 11/08/22 at [place] 1945, Until Discontinu ed, Routine HYDROcodone 2022- No 1{tbl} 1 tablet, Univers -acetaminop 11-09 Oral, ity of hen (NORCO 00:34: 19:12 Q6HPRN, [place] 5) 5-325 mg 24 :43 Starting Medi jeanette tablet 1 on [place] Branch tablet 11/08/22 at 1934, Until Thu11/09/22 at 1412, Routine, Pain (scale 4-6) lidocaine 2022- No 1{patch 1 Patch, Univers (LIDODERM) 11-08 } Topical, ity of 5 % (700 15:15: 02:56 Administer [place] mg/patch) 00 :00 over 12 Medical patch 1 Hours, Branch Patch ONCE, 1 dose, On 11/08/22 at 1015, Routine fluconazole 2022- No 150mg 150 mg, U nivers (DIFLUCAN) 11-08 Oral, ity of tablet 150 15:15: 16:44 ONCE, 1 [place] mg 00 :00 dose, On Medical Sat Branch 11/08/22 at 1015, WILLIAM
Re ason for Anti-Infec tive: Empiric Therapy for Suspected Infection< br>Empiric Therapy Site: Urine
D uration of therapy: 72 hours midazolam 2022- No IV [place], Uni vers (VERSED) 11-07 PRN, ity of injection 17:36: 17:43 Starting [place] 56 :54 on Thu Medical 11/07/22 at Branch 1236, Until Thu11/07/22 at 1243, Routine, Intra-op FENTanyl PF 2022- No Slow IV Un tapan (SUBLIMAZE 11-07 Push, PRN, it y of (PF)) 17:36: 17:43 Starting [place] injection 51 :59 on Thu Medical 11/07/22 at Branch 1236, Until Thu11/07/22 at 1243, Routine, Intra-op lidocaine 2022- No PRN, Univers 1% (PF) 11-07 Starting ity of (XYLOCAINE) 17:36: 17:36 on Thu [place] injection 29 :29 11/07/22 at [facility] 1236, Branch Until Thu11/07/22 at 1236, Routine, Intra-op methocarbam Yes 500mg 500 mg, Un tapan oL 11-07 Oral, QID, ity of (ROBAXIN) 17:00: First dose [place] tablet 500 00 on Thu Medical mg 11/07/22 at Branch 1200, Until Discontinu ed, Routine nicotine Yes 1{patch 1 Patch, Un tapan (NICODERM) 11-07 } Topical, ity o f 21 mg/24 hr 16:00: Administer [place] patch 1 00 over 24 Medical Patch Hours, [place] Q24H, First dose on Thu11/07/22 at 1100, Until Discontinu ed, Routine cefTRIAXone 2022- No 1000mg 1,000 mg, Univers (ROCEPHIN) 11-07 IV ity of 1,000 mg in 14:00: 16:03 Piggyback, [place] NaCl 0.9% 00 :40 Q24H ABX, Medic al (NS) 100 mL 7 doses, Bran ch MINI-BAG First dose on Thu11/07/22 at 0900, Last dose on [place] 11/13/22 at 0900, Administer over 30 Minutes, 100 mL
Reas on for Anti-Infec tive: Empiric Therapy for Suspected Infection< br>Empiric Therapy Site: Urine
D uration of therapy: 72 hours QUEtiapine 3-0 Yes 200mg 200 mg, Uni vers (SEROQUEL) 5-19 Oral, BID, ity of tablet 200 03:30: First dose [place] mg 00 on [facility] Medical 11/06/22 at Branch 2230, Until Discontinu ed, Routine gabapentin 2022-0 2022- No 300mg 300 mg, Un tapan (NEURONTIN) 11-0721 Oral, TID, i ty of capsule 300 03:30: 15:13 First dose [place] mg 00 :19 on [facility] 11/06/22 at Branch 2230, Until Discontinu ed, Routine gabapentin 2022-0 Yes 300mg Take 1 Univ ers 300 mg 5-18 capsule by ity of capsule 22:24: mouth in [place] 13 the Medical morning Branch and 1 capsule at noon and 1 capsule in the evening. QUEtiapine 2022-0 Yes 200mg Take 1 Univ ers (SEROQUEL) 5-18 tablet by ity of 200 mg 22:24: mouth in [place] tablet 13 the Medical morning Branch and 1 tablet in the evening. FLUoxetine 2022-0 Yes 20mg Take 1 Unive rs (PROZAC) 20 5-18 capsule by it y of mg capsule 22:24: mouth in [facility] as 13 the Medical morning. Branch varenicline 0 Yes 1mg Take 1 Univ ers 1 mg tablet 5-18 tablet by ity of 22:24: mouth. [address] enoxaparin 0 2022- No 40mg 40 mg, Univ ers (LOVENOX) 11-06 Subcutaneo ity of injection 22:00: 15:09 us, DAILY, [place] 40 mg 00 :05 First dose Medical on [facility] Branch 11/06/22 at 1700, Until Discontinu ed, Routine ketorolac 2022-0 2022- No 30mg 30 mg, Unive rs (TORADOL) 11-06 Slow IV ity of injection 21:52: 21:51 Push, [place] 30 mg 37 :37 Q6HPRN, Medical Starting Branch on [facility] 11/06/22 at 1652, Until 11/09/22 at 1651, Routine, Alternate with [place] for pain scale 4-6 NaCl 0.9% 2022022- No 1000mL at 75 Univ ers (NS) IV 11-06 mL/hr, IV ity of infusion 21:45: 18:07 Infusion, [place] 1,000 mL 00 :04 CONTINUOUS Medic al , Starting Branch on [place] 11/06/22 at 1645, Until 11/11/22 at 1307, Routine ondansetron 2022- No 4mg 4 mg, Slow Univers (ZOFRAN 11-06 IV Push, ity of (PF)) 21:36: 21:15 Q6HPRN, [place] injection 4 01 :47 Starting Medi jeanette mg on [place] Branch 11/06/22 at 1636, Until 11/10/22 at 1615, Routine, Nausea and Vomiting (N/V) FENTanyl PF 2022- No 50ug 50 mcg, Un tapan (SUBLIMAZE 11-06 Slow IV ity o f (PF)) 21:35: 14:47 Push, [place] injection 59 :58 Q3HPRN, Medical 50 mcg Starting Branch on [place] 11/06/22 at 1635, Until 11/07/22 at 0947, Routine, Pain (scale 7-10) HYDROcodone 2022- No 1{tbl} 1 tablet, Univers -acetaminop 11-06 Oral, ity of hen (NORCO 21:35: 21:34 Q6HPRN, [place] 5) 5-325 mg 55 :55 Starting Medi jeanette tablet 1 on [place] Branch tablet 11/06/22 at 1635, Until 11/08/22 at 1634, Routine, Pain (scale 4-6) acetaminoph Yes 650mg 650 mg, Un tapan en 11-06 Oral, ity of (TYLENOL) 21:35: Q6HPRN, [place] tablet 650 52 Starting Medic al mg on [place] Branch 11/06/22 at 1635, Until Discontinu ed, Routine, Pain (scale 1-3) magnesium 2022- No 2g 2 g, IV Univ ers sulfate in 11-06 Piggyback, it y of water 2 19:30: 20:13 Administer [place] gram/50 mL 00 :00 over 60 Medica l (4 %) Minutes, Branch infusion 2 ONCE, 1 g dose, On [place] 11/06/22 at 1430, Routine FENTanyl PF 2022- No 50ug 50 mcg, Un tapan (SUBLIMAZE 11-06 Slow IV ity o f (PF)) 19:15: 18:31 Push, [place] injection 00 :00 ONCE, 1 Medical 50 mcg dose, On [facility] 11/06/22 at 1415, Routine ketorolac 2022- No 15mg 15 mg, Unive rs (TORADOL) 11-06 Slow IV ity of injection 18:00: 17:25 Push, [place] 15 mg 00 :00 ONCE, 1 Medical dose, On Branch [facility] 11/06/22 at 1300, WILLIAM cefTRIAXone 2022- No 1000mg 1,000 mg, Univers (ROCEPHIN) 10-31 IV ity of 1,000 mg in 22:45: 23:27 Piggyback, [place] NaCl 0.9% 00 :00 ONCE, 1 Medical (NS) 100 mL dose, On [facility] MINI-BAG Thu10/31/22 at 1745, Administer over 30 Minutes, 100 mL
Reas on for Anti-Infec tive: Documented Infection< br>Documen imelda Infection Site: Urine<br&g t;Duration of Therapy: 7 days FENTanyl PF 2022- No 50ug 50 mcg, Un tapan (SUBLIMAZE 10-31 Slow IV ity o f (PF)) 22:45: 21:53 Push, [place] injection 00 :00 ONCE, 1 Medical 50 mcg dose, On Branch Thu10/31/22 at 1745, Routine NaCl 0.9% 2022- No 1000mL at 999 Uni vers (NS) bolus 10-31 mL/hr, ity of infusion 21:15: 21:56 1,000 mL, [place] 1,000 mL 00 :00 IV Medical Infusion, Branch ONCE, 1 dose, On Thu10/31/22 at 1615, WILLIAM cefpodoxime 2022-0 Yes [id number] 100mg Take 1 Univers 100 mg 5-12 tablet by ity of tablet 00:00: mouth in [place] 00 the Medical morning Branch and 1 tablet in the evening. acetaminoph Yes 4647 1{tbl} Take 1 Un tapan en-codeine 5-12 tablet by ity of (TYLENOL-CO 00:00: mouth [place] DEINE #3) 00 every 4 Medical 300-30 mg (four) Branch tablet hours as needed for Pain (scale 1-3). Indication s: acute pain cefpodoxime 2022-0 Yes [id number] 100mg Take 1 Univers 100 mg 5-12 tablet by ity of tablet 00:00: mouth in [place] 00 the Medical morning Branch and 1 tablet in the evening. acetaminoph Yes 4647 1{tbl} Take 1 Un tapan en-codeine 5-12 tablet by ity of (TYLENOL-CO 00:00: mouth [place] DEINE #3) 00 every 4 Medical 300-30 mg (four) Branch tablet hours as needed for Pain (scale 1-3). Indication s: acute pain cefpodoxime 2022-0 2022- No [id number] 100mg Take 1 Univers 100 mg 5-12 05-25 tablet by ity of tablet 00:00: 00:00 mouth in [place] 00 :00 the Medical morning Branch and 1 tablet in the evening. acetaminoph 2022- No 4647 1{tbl} Take 1 U nivers en-codeine 5-12 05-25 tablet by ity of (TYLENOL-CO 00:00: 00:00 mouth [place] DEINE #3) 00 :00 every 4 Medical 300-30 mg (four) Branch tablet hours as needed for Pain (scale 1-3). Indication s: acute pain cefpodoxime 2022-0 2022- No [id number] 100mg Take 1 Univers 100 mg 5-12 05-12 tablet by ity of tablet 00:00: 00:00 mouth in [place] 00 :00 the Medical morning Branch and 1 tablet in the evening. Do all this for 7 days. acetaminoph 2022- No 4647 1{tbl} Take 1 U nivers en-codeine 5-12 05-12 tablet by ity of (TYLENOL-CO 00:00: 00:00 mouth [place] DEINE #3) 00 :00 every 4 Medical 300-30 mg (four) Branch tablet hours as needed for Pain (scale 1-3). Indication s: acute pain cefpodoxime 2022- No [id number] 100mg Take 1 Univers 100 mg 10-31 tablet by ity of tablet 00:00: 00:00 mouth in [place] 00 :00 the Medical morning Branch and 1 tablet in the evening. Do all this for 7 days. acetaminoph 2022- No 4647 1{tbl} Take 1 U nivers en-codeine 10-31 tablet by ity of (TYLENOL-CO 00:00: 00:00 mouth [place] DEINE #3) 00 :00 every 4 Medical 300-30 mg (four) Branch tablet hours as needed for Pain (scale 1-3). Indication s: acute pain Vital Signs Vital Name Observation Time Observation Value Comments Source Systolic blood 2022-11-14 20:48:00 114 mm[Hg] Univer sity [facility] Diastolic blood 2022-11-14 20:48:00 83 [facility]Hg[facility] 2022-11-14 20:48:00 83 /min [facility] Body temperature 2022-11-14 20:48:00 36.89 [facility] 2022-11-14 20:48:00 17 /min [facility] Oxygen saturation in 2022-11-14 20:48:00 90 /min [facility] Arterial blood by [facility] Pulse oximetry Branch Body weight 2022-11-13 14:00:00 49.896 [facility] BMI 2022-11-13 14:00:00 17.23 kg/m2 [facility] Body height 2022-11-06 21:19:00 170.2 cm [facility] Systolic blood 2022-10-31 23:00:00 129 mm[Hg] [facility]iver [facility] Diastolic blood 2022-10-31 23:00:00 95 mm[facility]Hg[facility] rate 2022-10-31 23:00:00 96 /min [facility] Oxygen saturation in 2022-10-31 23:00:00 96 /min [facility] Arterial blood by [facility] Pulse oximetry Branch Respiratory rate 2022-10-31 21:30:00 20 /min [facility] Body temperature 2022-10-31 20:20:00 36.72 Joanna [facility] Body weight 2022-10-31 20:20:00 50.803 kg [facility] Systolic blood 2022-11-09 17:00:00 105 mm[Hg] Univer sity of pressure [facility] Diastolic blood 2022-11-09 17:00:00 71 mm[facility]Hg[facility] Heart rate 2022-11-09 17:00:00 108 /min [facility] Body temperature 2022-11-09 17:00:00 36.39 Joanna [facility] Respiratory rate 2022-11-09 17:00:00 18 /min [facility] Oxygen saturation in 2022-11-09 17:00:00 94 /min [facility] Arterial blood by [facility] Pulse oximetry Branch Body height 2022-11-06 21:19:00 170.2 cm [facility] Body weight 2022-11-06 21:19:00 49.896 kg [facility] BMI 2022-11-06 21:19:00 17.23 kg/m2 [facility] Procedures Procedure Date / Time Performing Clinician Source Performed PHOSPHORUS 2022-11-14 08:05:00 Evette Mason [facility] MAGNESIUM 2022-11-14 08:05:00 Evette Mason [facility] BASIC METABOLIC PANEL (NA, 2022-11-14 08:05:00 Evette Mason [facility] K, CL, CO2, GLUCOSE, BUN, Medica l Branch CREATININE, CA) CBC WITH DIFF 2022-11-14 08:05:00 Evette Mason [facility] LACTIC ACID WHOLE BLOOD 2022-11-13 08:42:00 Maryjane Win [facility] PHOSPHORUS 2022-11-13 08:36:00 Evette Mason [facility] MAGNESIUM 2022-11-13 08:36:00 Marlon [facility] BASIC METABOLIC PANEL (NA, 2022-11-13 08:36:00 Osei Duggan [facility] K, CL, CO2, GLUCOSE, [facility]UN[facility] CREATININE, CA) CBC WITH DIFF 2022-11-13 08:36:00 Blaynefransisco [facility] PHOSPHORUS 2022-11-12 11:06:00 Marlon [facility] MAGNESIUM 2022-11-12 11:06:[address] [facility] BASIC METABOLIC PANEL (NA, 2022-11-12 11:06:00 Evette Mason [facility] K, CL, CO2, GLUCOSE, BUN, Medica l Branch CREATININE, CA) CBC WITH DIFF 2022-11-12 11:06:00 Marlon [facility] PHOSPHORUS 2022-11-11 09:58:00 Mralon [facility] MAGNESIUM 2022-11-11 09:58:[address] [facility] BASIC METABOLIC PANEL (NA, 2022-11-11 09:58:00 [facility], [facility], CO2, GLUCOSE, BUN, Medica l Branch CREATININE, CA) CBC WITH DIFF 2022-11-11 09:58:00 nadjain [facility] LACTIC ACID WHOLE BLOOD 2022-11-11 09:58:00 Maryjane Win [facility] SYPHILIS IGG/IGM 2022-11-10 23:46:00 Darrel Erin [facility] CD4 SUBSET ASSAY 2022-11-10 19:02:00 [facility]ICIENCY 2022-11-10 19:02:00 [facility] VIRUS 1 (HIV-1) BY [facility] QUANTITATIVE NAAT BASIC METABOLIC PANEL (NA, 2022-11-10 10:51:00 Richard Berry [facility] K, CL, CO2, GLUCOSE, BUN, Medica l Branch CREATININE, CA) CBC WITHOUT DIFF 2022-11-10 10:51:00 Beti Berry [facility] HIV 1/2 AG-AB WITH REFLEX 2022-11-10 10:51:00 Erin Rojo [facility] HIV 1/2 AB SUPPLEMENTAL 2022-11-10 10:51:00 Erin Ro[facility] BLOOD CULTURE SCREEN 2022-11-09 18:08:[address] [facility] [address] THORAX W CONTRAST 2022-11-09 16:00:00 Jamal [facility] IR PLACEMENT 2022-11-07 18:27:16 [facility] NEPHROURETERAL CATHETER [facility] PERCUTANEOUS INCLUDES DIAGNOSTIC NEPHROGRAM IR PLACEMENT 2022-11-07 18:27:16 [facility] NEPHROURETERAL CATHETER [facility] PERCUTANEOUS INCLUDES DIAGNOSTIC NEPHROGRAM CT THORAX WO CONTRAST 2022-11-07 16:45:20 Beti Berry [facility] CT THORAX WO CONTRAST 2022-11-07 16:45:20 Beti Berry [facility] PROTHROMBIN TIME / INR 2022-11-07 08:32:00 Whitney [facility] PROTHROMBIN TIME / INR 2022-11-07 08:32:00 [facility] URINE DRUG (IMMUNOASSAY) - 2022-11-06 17:29:00 Miryam Stoll [facility] COMPREHENSIVE DRUG SCREEN [facility] [place] URINE DRUG (IMMUNOASSAY) - 2022-11-06 17:29:00 Miryam Stoll [facility] COMPREHENSIVE DRUG SCREEN Medica l Branch URINE CULTURE 2022-11-06 17:15:00 Miryam Stoll [facility] URINE CULTURE 2022-11-06 17:15:00 Miryam Stoll [facility] CT ABDOMEN PELVIS WO 2022-11-06 17:14:37 Miryam Stoll [facility] CT ABDOMEN PELVIS WO 2022-11-06 17:14:37 Miryam Stoll [facility] CONTRAST Medical Branch CBC WITH DIFF 2022-11-06 16:48:00 Miryam Stoll Bianca [facility] COMP. METABOLIC PANEL 2022-11-06 16:48:00 Miryam Stoll [facility] ([id number]) Medical Branch URINALYSIS 2022-11-06 16:48:00 Dodie, K Bianca [facility] MAGNESIUM 2022-11-06 16:48:00 Dodie [facility] TROPONIN I 2022-11-06 16:48:00 Dodie, K [facility] MAGNESIUM 2022-11-06 16:48:00 DodieMiryam [facility] TROPONIN I 2022-11-06 16:48:00 Dodie, [facility] COMP. METABOLIC PANEL 2022-11-06 16:48:00 Miryam Stoll [facility] ([id number]) [facility] Branch CBC WITH DIFF 2022-11-06 16:48:00 Miryam Stoll [facility] URINALYSIS 2022-11-06 16:48:00 Dodie, [facility] CONSENT/REFUSAL FOR 2022-11-06 15:39:43 [facility] DIAGNOSIS AND TREATMENT [facility] [place] CONSENT/REFUSAL FOR 2022-11-06 15:39:43 Doctor Unassigned, [facility] DIAGNOSIS AND TREATMENT [facility] [place] HOSPITAL ADMISSION 2022-11-06 05:01:00 Doctor Unamaxiigned, [facility] Name Medical [place] URINALYSIS 2022-10-31 22:05:00 Iris Emerson [facility] URINALYSIS 2022-10-31 22:05:00 Iris Emerson [facility] COMP. METABOLIC PANEL 2022-10-31 21:58:00 Iris Emerson [facility] ([id number]) Medical Branch COMP. METABOLIC PANEL 2022-10-31 21:58:00 Iris Emerson [facility] ([id number]) Medical Branch CT ABDOMEN PELVIS WO 2022-10-31 21:12:27 Iris Emerson [facility] CONTRAST Medical Branch CT ABDOMEN PELVIS WO 2022-10-31 21:12:27 Iris Emerson [facility] CONTRAST Medical Branch CBC WITH DIFF 2022-10-31 20:41:00 Iris Emerson [facility] Medical [place] CBC WITH DIFF 2022-10-31 20:41:00 Iris Emerson [facility] NOTICE OF PRIVACY 2022-10-31 20:14:23 Doctor Unalaney, [facility] [place] NOTICE OF PRIVACY 2022-10-31 20:14:23 Doctor Naif, [facility] CONSENT/REFUSAL FOR 2022-10-31 20:14:09 Doctor Naif [facility] DIAGNOSIS AND TREATMENT [place] REFERRAL- REQUEST/RESPONSE 2022-10-14 05:01:00 Doctor Naif , [facility] [facility] Plan of Care Planned Activity Planned Date Details Comments Source Medication 2022-11-25 Nitrofurantoin&Nit. [facility] 00:00:00 Macrocryst (MACROBID) Medica l Branch 100 mg capsule [code = 0931280] Encounters Start End Encounter Admission Attending Care Care Encounter Source Date/Time Date/Time Type Type Clinicians Facility Department ID 2022-10-16 Outpatient [place], STLMLC [facility] [id number] Common 14:58:02 Formerly [facility] [id number] [facility] 2022-10-15 Outpatient [place], STLMLC [facility] [id number] Common 13:00:01 Formerly [facility] [id number] [facility] 2022-09-16 Emergency HFD HFD [id number] VICENTE - 02:29:57 [place] [facility] 2016-03-07 Inpatient C [facility] MED [id number] [facility]. 15:30:00 [facility] 2022-11-06 2022-11-14 Inpatient X EVETTE MASON [facility] [id number] Univers 10:51:00 17:32:00 EVETTE MASON ity [facility] 2022-11-06 2022-11-14 [facility] Miryam Stoll RUST 1.2.840.1 14 [id number] Univers 10:51:00 17:32:00 Encounter JamalBeti [facility] 350.1.13. 10 ity of Evette Mason 4.2.7.2.686 [place] [id number] [address] ([facility]) 2022-11-14 2022-11-14 Letter JONATAN Beauchamp 1.2.907.108 [id number] Univers 00:00:00 00:00:00 (Out) Dulce Carrasco [facility] 350.1.13.10 i ty of CLINICS 4.2.7.2.686 [facility] [id number] [facility] 084 [place] 2022-11-07 2022-11-07 Travel 1.2.840.1 1.2.827.859 [id number] Univers 00:00:00 00:00:00 51294.1.1 350.1.13.10 ity of 3.104.2.7 [place].698 [place]3.733[place] 084.8 Medica l .8 [place] 2022-11-06 2022-11-06 Travel 1.2.840.1 1.2.530.000 [id number] Univers 00:00:00 00:00:00 51864.1.1 350.1.13.10 ity of 3.104.2.7 [place].3.698 [place] .3.557837 084.8 Medica l .8 [place] 2022-11-05 2022-11-05 Telephone Porfirio, 1.2.840.9 [id number] Univers 00:00:00 00:00:00 Cricket 51296.1.1 ity of 3.104.2.7 [place] .3.570606 Medica l .8 [place] 2022-10-31 2022-10-31 Emergency Idania, 1.2.840.4 [id number] Univers 15:23:00 18:38:00 Iris J 08379.1.1 ity of 3.104.2.7 [place] .3.941870 Medica l .8 [place] 2022-10-31 2022-10-31 Emergency X IDANIA, RUST ERT [id number] Univers 15:23:00 18:38:00 IRIS ity of [facility] 2022-10-31 2022-10-31 Travel 1.2.840.1 1.2.356.793 [id number] Univers 00:00:00 00:00:00 29699.1.1 350.1.13.10 ity of 3.104.2.7 4.[place]7.3.698 [place] .3.987428 084.8 Medica l .8 [place] 2022-10-31 2022-10-31 Orders Doctor 1.2.840.3 [id number] Univers 00:00:00 00:00:00 Only Unassigned, 73366.1.1 ity of [place] 3.104.2.7 [place] .3.668007 Medica l .8 [place] 2022-10-16 2022-10-16 Outpatient SFA SFA [id number] [place] 15:18:53 15:18:53 [id number] [place] 2022-10-15 2022-10-15 Outpatient SFA SFA [place] 10:21:44 10:21:44 [id number] [place] 2022-10-14 2022-10-14 Orders Doctor 1.2.840.0 [id number] Univers 00:00:00 00:00:00 Only Unassigned, 87930.1.1 ity of [place] 3.104.2.7 [place] .3.732407 Medica l .8 [place] 2022-10-08 2022-10-08 Outpatient SFA SFA [id number] [place] 14:33:57 14:33:57 [id number] [place] 2022-09-16 2022-09-16 Emergency [facility] MED [id number] [place] 02:14:00 04:47:00 Health 2022-06-29 2022-06-29 Emergency E CHAVA [facility] [id number] 09:24:00 11:56:00 SARAH ANDREA 2022-02-18 2022-02-18 Outpatient EMERY [facility] [id number] [place] 15:58:27 23:59:00 [facility] 2022-02-06 2022-02-06 Outpatient MARIALUISA, [facility] [id number] [facility] 00:00:00 00:00:00 YON 2021-03-17 2021-03-18 Emergency E MYA, [id number] [facility] 20:34:00 04:37:00 SAMIRA 2021-03-15 2021-03-17 Inpatient E KIM [id number] 11:26:00 17:15:00 MANA 2018-05-03 2018-05-03 Outpatient [facility] [id number] [facility] 00:00:00 00:00:00 2018-04-07 2018-04-07 Outpatient [facility] [id number] [facility] 00:00:00 00:00:00 2018-03-29 2018-03-29 Outpatient [facility] [id number] [facility] 15:40:27 15:40:27 2018-03-29 2018-03-29 Outpatient [facility] [id number] [facility] 15:07:58 15:07:58 2018-03-29 2018-03-29 Outpatient [facility] [id number] [facility] 14:41:19 14:41:19 2015-05-01 2015-05-02 Outpatient [facility] [id number] Mem[place] 19:22:00 05:59:[address] 2015-05-01 2015-05-02 Outpatient [facility] [id number] Mem[place] 19:22:00 05:59:[address] 2015-05-01 2015-05-01 Outpatient Duncan, [facility] [id number] 13:22:00 23:59:00 Fatimah Blanco Results Test Description Test Time Test Comments Results Result Comments Source Lactic Acid Whole Blood 2022-11-13 08:48:46 Test Item Value Reference Range Interpretation Comme nts LACTIC ACID (test code = 5111446263) 0.93 mmol/L 0.50-2.20 Lab Interpretation (test code = 96802-4) [facility] AG-AB WITH [id number] 18:42:11 Test Item Value Reference Range Interpretation Comments HIV Semi-quantitative 294.00 Negative A (test code = 40494-1) ANDREW (test code = ANDREW) This is a preliminary result. Specimen is presumptive reactive for anti-HIV-1, anti-HIV-2, or p24 antigen. Further testing for confirmation has been ordered.This is a preliminary result. Specimen is presumptive reactive for anti-HIV-1, anti-HIV-2, or p24 antigen. Further testing for confirmation has been ordered. Lab Interpretation (test Abnormal code = 86171-2) [facility] SUPPLE[facility]AL [id number] 18:42:11 Test Item Value Reference Range Interpretation Comments HIV Supplemental Positive Confirmatory Testing (test code = 7879061959) HIV-1 Ab Confirmation Positive (test code = 6386555108) HIV-2 Ab Confirmation Negative (test code = 1140674731) ANDREW (test code = ANDREW) Patient is confirmed to have HIV-1 infection. [facility] Whole [id number] 10:08:09 Test Item Value Reference Range Interpretation Comments LACTIC ACID (test code = 1.44 mmol/L 0.50-2.20 3379662031) Lab Interpretation (test code = Normal 19553-6) [facility] (NA, K, CL, CO2, GLUCOSE, BUN, CREATININE, CA)2022-11-10 11:27:42 Test Item Value Reference Range Interpretation Comments NA (test code = 136 mmol/L 135-145 4777276226) K (test code = 3.8 mmol/L 3.5-5.0 9926503986) CL (test code = 107 mmol/L 98-108 4512975349) CO2 TOTAL (test code = 22 mmol/L 23-31 L 0177129855) AGAP (test code = 7 2-16 4466067344) BUN (test code = 21 mg/dL 7-23 9127474855) GLUCOSE (test code = 97 mg/dL 70-110 6807961323) CREATININE (test code = 0.79 mg/dL 0.50-1.04 7001233957) CALCIUM (test code = 7.9 mg/dL 8.6-10.6 L 0293795049) eGFR (test code = 77.4 mL/min/1.73m2 2649716538) ANDREW (test code = ANDREW) Association of Glomerular Filtration Rate (GFR) and Staging of Kidney Disease* + --+ --+ ------+| GFR (mL/min/1.73 m2) ?| With Kidney Damage ?| ?Without Kidney Damage+ --------+ --------+ +| ?>90 ?| ?Stage one ?| ? Normal ?+ ---+ ---+ -------+| ?60-89 ?| ?Stage two ?| ? Decreased GFR ? + --+ --+ ------+| ?30-59 ?| ?Stage three ?| ? Stage three ? + --+ --+ ------+| ?15-29 ?| ?Stage four ? | ? Stage four ?+ ---+ ---+ -------+| ?<15 (or dialysis) ? ?| ?Stage five ? | ? Stage five ?+ ---+ ---+ -------+ *Each stage assumes the associated GFR level has been in effect for at least three months. ?Stages 1 to 5, with or without kidney disease, indicate chronic kidney disease. Notes: Determination of stages one and two (with eGFR >59mL/min/1.73 m2) requires estimation of kidney damage for at least three months as defined by structural or functional abnormalities of the kidney, manifested by either:Pathological abnormalities or Markers of kidney damage (including abnormalities in the composition of the blood or urine or abnormalities in imaging tests). Lab Interpretation Abnormal (test code = 28340-0) [facility] WITHOUT [id number] 10:58:36 Test Item Value Reference Range Interpretation Comments WBC (test code = 6690-2) 13.92 See_Comment H [A utomated message] The system [employer] generated this result transmit imelda reference range : 4.30 - 11.10 10*3/?L. The reference range was not used to interpret this result as normal/abnormal . RBC (test code = 789-8) 2.90 See_Comment L [Au tomated message] The system [employer] generated this result transmit imelda reference range : 3.93 - 5.25 10* 6/?L. The reference r jack was not used to interpret this result as normal/abnormal . HGB (test code = 718-7) 8.2 g/dL 11.6-15.0 L HCT (test code = 4544-3) 24.9 % 35.7-45.2 L MCH (test code = 785-6) 28.3 pg 25.9-32.8 MCV (test code = 787-2) 85.9 fL 80.6-95.5 MCHC (test code = 786-4) 32.9 g/dL 31.6-35.1 PLT (test code = 777-3) 195 See_Comment [Au tomated message] The system [facility] generated this result transmit imelda reference range : 166 - 358 10*3/?L. The reference range was not used to interpret this result as normal/abnormal . MPV (test code = 9.7 fL 9.5-12.9 31379-4) RDW-CV (test code = 16.2 % 12.0-15.5 H 788-0) RDW-SD (test code = 50.2 fL 39.0-49.9 H 23494-2) NRBC x10^3 (test code = See_Comment [Au tomated message] 2201867706) The system [facility] generated this result transmit imelda reference range : 10*3/?L. The reference range was not used to interpret this result as normal/abnormal . NRBC/100 WBC (test code 0.0 See_Comment [Au tomated message] = 6212610930) The system [facility] generated this result transmit imelda reference range : 0.0 - 10.0 /100 WBC s. The reference r jack was not used to interpret this result as normal/abnormal . IPF % (test code = 4706913303) Lab Interpretation (test Abnormal code = 09942-9) [facility]. METABOLIC PANEL ([id number])2022-11-06 17:49:43 Test Item Value Reference Range Interpretation Comments NA (test code = 139 mmol/L 135-145 5516277087) K (test code = 4.3 mmol/L 3.5-5.0 Slight 5465645951) hemolysis CL (test code = 108 mmol/L 98-108 5072295045) CO2 TOTAL (test code 25 mmol/L 23-31 = 7631536190) AGAP (test code = 6 2-16 1540262961) BUN (test code = 14 mg/dL 7-23 Slight 4893066265) hemolysis GLUCOSE (test code = 73 mg/dL 70-110 9438030267) CREATININE (test code 0.53 mg/dL 0.50-1.04 = 3707584344) TOTAL BILI (test code 0.5 mg/dL 0.1-1.1 = 2409465917) CALCIUM (test code = 8.6 mg/dL 8.6-10.6 9557458272) T PROTEIN (test code 7.5 g/dL 6.3-8.2 = 9929074884) ALBUMIN (test code = 3.5 g/dL 3.5-5.0 4625324945) ALK PHOS (test code = 60 U/L 34-122 Slight 1716728258) hemolysis ALTv (test code = 86 U/L 5-35 H 1742-6) AST(SGOT) (test code 76 U/L 13-40 H Slight = 3431759812) hemolysis eGFR (test code = 122.6 mL/min/1.73m2 8344751185) ANDREW (test code = ANDREW) Association of Glomerular Filtration Rate (GFR) and Staging of Kidney Disease* + -----+ --------+ +| GFR (mL/min/1.73 m2) ?| With Kidney Damage ?| ?Without Kidney Damage+ +------- +---- --+| ?>90 ?| ?Stage one ?| ? Normal ?+ ------+ ---------+--------- +| ?60-89 ?| ?Stage two ?| ? Decreased GFR ? + -----+ --------+ +| ?30-59 ?| ?Stage three ?| ? Stage three ? + -----+ --------+ +| ?15-29 ?| ?Stage four ? | ? Stage four ?+ ------+ ---------+--------- +| ?<15 (or dialysis) ? ?| ?Stage five ? | ? Stage five ?+ ------+ ---------+--------- + *Each stage assumes the associated GFR level has been in effect for at least three months. ?Stages 1 to 5, with or without kidney disease, indicate chronic kidney disease. Notes: Determination of stages one and two (with eGFR >59mL/min/1.73 m2) requires estimation of kidney damage for at least three months as defined by structural or functional abnormalities of the kidney, manifested by either:Pathological abnormalities or Markers of kidney damage (including abnormalities in the composition of the blood or urine or abnormalities in imaging tests). Lab Interpretation Abnormal (test code = 34237-9) [facility]. METABOLIC PANEL ([id number])2022-11-06 17:49:43 Test Item Value Reference Range Interpretation Comments NA (test code = 139 mmol/L 135-145 6516192363) K (test code = 4.3 mmol/L 3.5-5.0 Slight 6105257312) hemolysis CL (test code = 108 mmol/L 98-108 7003110108) CO2 TOTAL (test code 25 mmol/L 23-31 = 9631859020) AGAP (test code = 6 2-16 9683908805) BUN (test code = 14 mg/dL 7-23 Slight 5731014761) hemolysis GLUCOSE (test code = 73 mg/dL 70-110 1318593722) CREATININE (test code 0.53 mg/dL 0.50-1.04 = 5590123060) TOTAL BILI (test code 0.5 mg/dL 0.1-1.1 = 4601936552) CALCIUM (test code = 8.6 mg/dL 8.6-10.6 0325014087) T PROTEIN (test code 7.5 g/dL 6.3-8.2 = 0827782084) ALBUMIN (test code = 3.5 g/dL 3.5-5.0 9224616707) ALK PHOS (test code = 60 U/L 34-122 Slight 4191215365) hemolysis ALTv (test code = 86 U/L 5-35 H 1742-6) AST(SGOT) (test code 76 U/L 13-40 H Slight = 1400305682) hemolysis eGFR (test code = 122.6 mL/min/1.73m2 8753935165) ANDREW (test code = ANDREW) Association of Glomerular Filtration Rate (GFR) and Staging of Kidney Disease* + -----+ --------+ +| GFR (mL/min/1.73 m2) ?| With Kidney Damage ?| ?Without Kidney Damage+ +------- +---- --+| ?>90 ?| ?Stage one ?| ? Normal ?+ ------+ ---------+--------- +| ?60-89 ?| ?Stage two ?| ? Decreased GFR ? + -----+ --------+ +| ?30-59 ?| ?Stage three ?| ? Stage three ? + -----+ --------+ +| ?15-29 ?| ?Stage four ? | ? Stage four ?+ ------+ ---------+--------- +| ?<15 (or dialysis) ? ?| ?Stage five ? | ? Stage five ?+ ------+ ---------+--------- + *Each stage assumes the associated GFR level has been in effect for at least three months. ?Stages 1 to 5, with or without kidney disease, indicate chronic kidney disease. Notes: Determination of stages one and two (with eGFR >59mL/min/1.73 m2) requires estimation of kidney damage for at least three months as defined by structural or functional abnormalities of the kidney, manifested by either:Pathological abnormalities or Markers of kidney damage (including abnormalities in the composition of the blood or urine or abnormalities in imaging tests). Lab Interpretation Abnormal (test code = 88487-9) [facility] [id number] 17:46:24 Test Item Value Reference Range Interpretation Comments TROPONIN I (test code = 0.005 ng/mL <=0.034 5809560762) ANDREW (test code = ANDREW) Reference (Normal) Range (defined by the 99th percentile reference limit): <= 0.034 ng/mL Note: Cardiac troponin begins to rise 3-4 hours after the onset of ischemia. Repeat in 4-6 hours if the sample was drawn within 3-4 hours of the onset of the symptom and found normal. Diagnosis of myocardial injury is made with acute changes in cTn concentrations with at least one serial sample above the 99th percentile upper reference limit (URL), taken together with the patient's clinical presentation. Biotin has been reported to cause a negative bias, interpret results relative to patient's use of biotin. Lab Interpretation Normal (test code = 55789-8) [facility] [id number] 17:46:24 Test Item Value Reference Range Interpretation Comments TROPONIN I (test code = 0.005 ng/mL <=0.034 [id number]) ANDREW (test code = ANDREW) Reference (Normal) Range (defined by the 99th percentile reference limit): <= 0.034 ng/mL Note: Cardiac troponin begins to rise 3-4 hours after the onset of ischemia. Repeat in 4-6 hours if the sample was drawn within 3-4 hours of the onset of the symptom and found normal. Diagnosis of myocardial injury is made with acute changes in cTn concentrations with at least one serial sample above the 99th percentile upper reference limit (URL), taken together with the patient's clinical presentation. Biotin has been reported to cause a negative bias, interpret results relative to patient's use of biotin. Lab Interpretation Normal (test code = 14249-2) [facility] Test Item Value Reference Range Interpretation Comments MAGNESIUM (test code = 1429193451) 1.6 mg/dL 1.7-2.4 L Lab Interpretation (test code = Abnormal 08232-6) [facility] Test Item Value Reference Range Interpretation Comments MAGNESIUM (test code = 0824826848) 1.6 mg/dL 1.7-2.4 L Lab Interpretation (test code = Abnormal 17325-8) [facility] WITH [id number] 17:24:02 Test Item Value Reference Range Interpretation Comments WBC (test code = 6.06 See_Comment [Automated 6090-2) message] The sy stem which generated this result transmitted reference range : 4.30 - 11.10 10*3/?L. The reference range was not used to interpret this result as normal/abnormal . RBC (test code = 3.64 See_Comment L [Automated 298-8) message] The sy stem which generated this result transmitted reference range : 3.93 - 5.25 10*6/?L. The reference range was not used to interpret this result as normal/abnormal . HGB (test code = 10.3 g/dL 11.6-15.0 L 718-7) HCT (test code = 31.1 % 35.7-45.2 L 4544-3) MCV (test code = 85.4 fL 80.6-95.5 787-2) MCH (test code = 28.3 pg 25.9-32.8 785-6) MCHC (test code = 33.1 g/dL 31.6-35.1 786-4) RDW-SD (test code = 49.9 fL 39.0-49.9 77239-0) RDW-CV (test code = 16.2 % 12.0-15.5 H 788-0) PLT (test code = 329 See_Comment [Automated 777-3) message] The sy stem which generated this result transmitted reference range : 166 - 358 10*3/ ?L. The reference r jack was not used to interpret this result as normal/abnormal . MPV (test code = 9.6 fL 9.5-12.9 70061-6) NRBC/100 WBC (test 0.0 See_Comment [Automat ed code = 6755258466) message] The system which generated this result transmitted reference range : 0.0 - 10.0 /100 WBCs. The refer ence range was not u sed to interpret th is result as normal/abnormal . NRBC x10^3 (test code See_Comment [Auto mated = 3242487572) message] The s ystem which generated this result transmitted reference range : 10*3/?L. The reference range was not used to interpret this result as normal/abnormal . GRAN MAT (NEUT) % 48.9 % (test code = 770-8) IMM GRAN % (test code 1.20 % = 2885900803) LYMPH % (test code = 38.8 % 736-9) MONO % (test code = 9.6 % 5905-5) EOS % (test code = 1.2 % 713-8) BASO % (test code = 0.3 % 706-2) GRAN MAT x10^3(ANC) 2.97 10*3/uL 1.88-7.09 (test code = 2447499311) IMM GRAN x10^3 (test 0.07 10*3/uL 0.00-0.06 H code = 6813385662) LYMPH x10^3 (test code 2.35 10*3/uL 1.32-3.29 = 731-0) MONO x10^3 (test code 0.58 10*3/uL 0.33-0.92 = 742-7) EOS x10^3 (test code = 0.07 10*3/uL 0.03-0.39 711-2) BASO x10^3 (test code 0.01-0.07 = 704-7) Lab Interpretation Abnormal (test code = 62893-4) [facility] WITH [id number] 17:24:02 Test Item Value Reference Range Interpretation Comments WBC (test code = 6.06 See_Comment [Automated 1390-2) message] The sy stem which generated this result transmitted reference range : 4.30 - 11.10 10*3/?L. The reference range was not used to interpret this result as normal/abnormal . RBC (test code = 3.64 See_Comment L [Automated 789-8) message] The sy stem which generated this result transmitted reference range : 3.93 - 5.25 10*6/?L. The reference range was not used to interpret this result as normal/abnormal . HGB (test code = 10.3 g/dL 11.6-15.0 L 718-7) HCT (test code = 31.1 % 35.7-45.2 L 4544-3) MCV (test code = 85.4 fL 80.6-95.5 787-2) MCH (test code = 28.3 pg 25.9-32.8 785-6) MCHC (test code = 33.1 g/dL 31.6-35.1 786-4) RDW-SD (test code = 49.9 fL 39.0-49.9 04856-5) RDW-CV (test code = 16.2 % 12.0-15.5 H 788-0) PLT (test code = 329 See_Comment [Automated 777-3) message] The sy stem which generated this result transmitted reference range : 166 - 358 10*3/ ?L. The reference r jack was not used to interpret this result as normal/abnormal . MPV (test code = 9.6 fL 9.5-12.9 61214-6) NRBC/100 WBC (test 0.0 See_Comment [Automat ed code = 2646557516) message] The system which generated this result transmitted reference range : 0.0 - 10.0 /100 WBCs. The refer ence range was not u sed to interpret th is result as normal/abnormal . NRBC x10^3 (test code See_Comment [Auto mated = 2960271166) message] The s ystem which generated this result transmitted reference range : 10*3/?L. The reference range was not used to interpret this result as normal/abnormal . GRAN MAT (NEUT) % 48.9 % (test code = 770-8) IMM GRAN % (test code 1.20 % = 5962305053) LYMPH % (test code = 38.8 % 736-9) MONO % (test code = 9.6 % 5905-5) EOS % (test code = 1.2 % 713-8) BASO % (test code = 0.3 % 706-2) GRAN MAT x10^3(ANC) 2.97 10*3/uL 1.88-7.09 (test code = 5514230729) IMM GRAN x10^3 (test 0.07 10*3/uL 0.00-0.06 H code = 1084034776) LYMPH x10^3 (test code 2.35 10*3/uL 1.32-3.29 = 731-0) MONO x10^3 (test code 0.58 10*3/uL 0.33-0.92 = 742-7) EOS x10^3 (test code = 0.07 10*3/uL 0.03-0.39 711-2) BASO x10^3 (test code 0.01-0.07 = 704-7) Lab Interpretation Abnormal (test code = 94500-3) [facility] (41080[facility]20[facility]-31 22:52:50 Test Item Value Reference Range Interpretation Comments NA (test code = 139 mmol/L 135-145 1797201301) K (test code = 3.9 mmol/L 3.5-5.0 8038872696) CL (test code = 107 mmol/L 98-108 0297641526) CO2 TOTAL (test code = 25 mmol/L 23-31 7240073188) AGAP (test code = 7 2-16 9466856767) BUN (test code = 23 mg/dL 7-23 8005535093) GLUCOSE (test code = 97 mg/dL 70-110 5382309644) CREATININE (test code = 0.54 mg/dL 0.50-1.04 1781205021) TOTAL BILI (test code = 0.2 mg/dL 0.1-1.1 9741837508) CALCIUM (test code = 8.6 mg/dL 8.6-10.6 7169491638) T PROTEIN (test code = 7.1 g/dL 6.3-8.2 5347710662) ALBUMIN (test code = 3.3 g/dL 3.5-5.0 L 8782675804) ALK PHOS (test code = 95 U/L 34-122 6078450947) ALTv (test code = 70 U/L 5-35 H 1742-6) AST(SGOT) (test code = 52 U/L 13-40 H 7353242043) eGFR (test code = 120.0 mL/min/1.73m2 5116585230) ANDREW (test code = ANDREW) Association of Glomerular Filtration Rate (GFR) and Staging of Kidney Disease* + --+ --+ ------+| GFR (mL/min/1.73 m2) ?| With Kidney Damage ?| ?Without Kidney Damage+ --------+ --------+ +| ?>90 ?| ?Stage one ?| ? Normal ?+ ---+ ---+ -------+| ?60-89 ?| ?Stage two ?| ? Decreased GFR ? + --+ --+ ------+| ?30-59 ?| ?Stage three ?| ? Stage three ? + --+ --+ ------+| ?15-29 ?| ?Stage four ? | ? Stage four ?+ ---+ ---+ -------+| ?<15 (or dialysis) ? ?| ?Stage five ? | ? Stage five ?+ ---+ ---+ -------+ *Each stage assumes the associated GFR level has been in effect for at least three months. ?Stages 1 to 5, with or without kidney disease, indicate chronic kidney disease. Notes: Determination of stages one and two (with eGFR >59mL/min/1.73 m2) requires estimation of kidney damage for at least three months as defined by structural or functional abnormalities of the kidney, manifested by either:Pathological abnormalities or Markers of kidney damage (including abnormalities in the composition of the blood or urine or abnormalities in imaging tests). Lab Interpretation Abnormal (test code = 90260-7) [facility] WITH [id number] 21:46:02 Test Item Value Reference Range Interpretation Comments WBC (test code = 7.14 See_Comment [Automated 6690-2) message] The sy stem which generated this result transmitted reference range : 4.30 - 11.10 10*3/?L. The reference range was not used to interpret this result as normal/abnormal . RBC (test code = 3.74 See_Comment L [Automated 789-8) message] The sy stem which generated this result transmitted reference range : 3.93 - 5.25 10*6/?L. The reference range was not used to interpret this result as normal/abnormal . HGB (test code = 10.4 g/dL 11.6-15.0 L 718-7) HCT (test code = 32.6 % 35.7-45.2 L 4544-3) MCV (test code = 87.2 fL 80.6-95.5 787-2) MCH (test code = 27.8 pg 25.9-32.8 785-6) MCHC (test code = 31.9 g/dL 31.6-35.1 786-4) RDW-SD (test code = 49.6 fL 39.0-49.9 87740-1) RDW-CV (test code = 15.7 % 12.0-15.5 H 788-0) PLT (test code = 404 See_Comment H [Automated 777-3) message] The sy stem which generated this result transmitted reference range : 166 - 358 10*3/ ?L. The reference r jcak was not used to interpret this result as normal/abnormal . MPV (test code = 9.9 fL 9.5-12.9 11154-0) NRBC/100 WBC (test 0.0 See_Comment [Automat ed code = 8162278081) message] The system which generated this result transmitted reference range : 0.0 - 10.0 /100 WBCs. The refer ence range was not u sed to interpret th is result as normal/abnormal . NRBC x10^3 (test code See_Comment [Auto mated = 1592002043) message] The s ystem which generated this result transmitted reference range : 10*3/?L. The reference range was not used to interpret this result as normal/abnormal . SEG % (test code = 47 % 33-76 12969-7) BAND % (test code = 7 % 0-1 H 98166-5) LYMPH % (test code = 36 % 14-54 14720-7) LG GRAN LYMPH % (test 2 % <=0 H code = 27606-1) MONO % (test code = 6 % 0-4 H 68001-6) EOS % (test code = 2 % 0-3 96545-1) ANC (test code = 3.86 10*3/uL 1.88-7.09 753-4) TOXIC CHANGES (test Present A code = 803-7) Lab Interpretation Abnormal (test code = 20598-9) [facility] Blood [id number] 19:17:00 Specimen: BloodCollected: 12/24/2016 12:51 Status: Final Last Updated: 12/29/2016 19:17 (1) ER Bed 16 Culture Result (Final) (Final) No [facility] [id number] 19:17:00Specimen: BloodCollected: 12/24/2016 12:15 Status: Final Last Updated: 12/29/2016 19:17 (1) ER Bed 16 Culture Result (Final) (Final) No Growth After 5 DaysHelper T-Lymph-CD4 2016-12-26 17:23:00 Test Item Value Reference Range Interpretation Comments % CD 4 Pos. Lymph. (test code = 36.2 % 30.8-58.5 N 970156) Absolute CD 4 Badger (test code 543 /uL 359-1519 N = 852411) WBC (test code = 745247) 10.2 x10E3/uL 3.4-10.8 N RBC (test code = 332077) 3.31 x10E6/uL 3.77-5.28 L Hemoglobin (test code = 354026) 10.6 g/dL 11.1-15.9 L Hematocrit (test code = 426811) 30.9 % 34.0-46.6 L MCV (test code = 184829) 93 fL 79-97 N MCH (test code = 340152) 32.0 pg 26.6-33.0 N MCHC (test code = 208483) 34.3 g/dL 31.5-35.7 N RDW (test code = 175269) 14.5 % 12.3-15.4 N Platelets (test code = 863099) 201 x10E3/uL 150-379 N Neutrophils (test code = 75 % 464705) Lymphs (test code = 894733) 15 % Monocytes (test code = 107378) 10 % Eos (test code = 055044) 0 % Basos (test code = 179925) 0 % Neutrophils (Absolute) (test 7.6 x10E3/uL 1.4-7.0 H code = 742564) Lymphs (Absolute) (test code = 1.5 x10E3/uL 0.7-3.1 N 799103) Monocytes(Absolute) (test code 1.1 x10E3/uL 0.1-0.9 H = 827231) Eos (Absolute) (test code = 0.0 x10E3/uL 0.0-0.4 N 220879) Baso (Absolute) (test code = 0.0 x10E3/uL 0.0-0.2 N 839940) Immature Granulocytes (test 0 % code = 656121) Immature Grans (Abs) (test code 0.0 x10E3/uL 0.0-0.1 N = 114219) Valproic Acid (Depakote),P9061-84-40 09:53:00 Test Item Value Reference Range Interpretation Comments Valproic Acid (test code = VALP) 104.1 ug/mL 50.0-100.0 H Ammonia, [id number] 08:01:00 Test Item Value Reference Range Interpretation Comments Ammonia (test code = NH3) 101.0 umol/L 11.0-35.0 H Glycosylated Htqwnxdedb2371-56-14 07:07:00 Test Item Value Reference Range Interpretation Comments HBA1c (test code = HBA1C) 4.8 % 4.8-5.9 N Partial Thromboplastin [id number] 06:51:00 Test Item Value Reference Range Interpretation Comments aPTT (test code = PTT) 31.30 seconds 24.39-37.25 N Magnesium, [id number] 06:48:00 Test Item Value Reference Range Interpretation Comments Magnesium (test code = MG) 2.4 mg/dL 1.7-2.5 N Comprehensive Metabolic [id number] 06:48:00 Test Item Value Reference Range Interpretation [...] is not provided , and the patient isLorna can, multiply by 1.2 12. If sex is not prov ided, and thepatient is female, multipl y by 0.742. Results for patients <18 ye ars ofage have not been validated by th e MDRD study and herminio d be interpretedwith caution.eGFR Re sult Interpretation: eGFR > or = 60 is in t he Normal RangeeGF R < 60 may mean kidney diseaseeGFR < 1 5 may mean kidney failureRange s recommended by the National Kidney Foundation,http ://nkd ep.nih.gov CK Lopxl2820-75-95 06:48:00 Test Item Value Reference Range Interpretation Comments CK (test code = CK) 167 U/L 26-192 N Sfjodzqzim1839-77-69 06:48:00 Test Item Value Reference Range Interpretation Comments Phosphorus (test code = PO4) 2.3 mg/dL 2.70-4.50 L Prothrombin [id number] 06:47:00 Test Item Value Reference Range Interpretation Comments PT (test code = PT) 11.90 seconds 9.78-13.35 N INR (test code = INR) 1.04 Ratio 0.6-1.2 N CBC with Miwvfjeisocs7401-27-18 06:36:00 Test Item Value Reference Range Interpretation [...] code = ALYMPH) 1.7 K/cumm 0.5-4.6 N Morrill Abs (test code = AMONO) 0.7 K/cumm 0.0-1.2 N Eos Abs (test code = AEOS) 0.07 K/cumm 0.00-0.74 N Baso Abs (test code = ABASO) 0.0 K/cumm 0.00-0.21 N POC Glucose, [id number] 20:36:00 Test Item Value Reference Range Interpretation Comments POC Glucose (test 100 mg/dL 70-115 N If you con founder & ceo your code = POCGLUC) patient crit ically ill, the [place] Accu- Chek InformII meters hould not be used for Glu cose determinations. Draw a venous Glucose and send to the Main Lab for Analysis. POC Glucose, [id number] 17:15:00 Test Item Value Reference Range Interpretation Comments POC Glucose (test 93 mg/dL 70-115 N Notify RN or MDIf you code = POCGLUC) consider you r patient critically ill, the [place] Accu-Chek InformII metershould not be used for Glucose determinations. Draw a venous Glucose and send to the Main Lab for Analysis. [id number] 17:11:00 Test Item Value Reference Range Interpretation Comments Potassium (test code 2.9 mmol/L 3.5-5.1 LL VERIFIE D BY REPEAT = K) TESTINGREAD SUSANNAH K LAB VALUEST KATHERINE ELLSWORTH 17:11 7 OG [id number] 10:49:00 Test Item Value Reference Range Interpretation [...] code = THC) POSITIVE Negative A Urinalysis [id number] 09:18:00 Test Item Value Reference Range Interpretation Comments Color (test code = COLOR) Yellow Yellow,Straw,Pl N yellow Clarity (test code = Clear Clear N CLAR) Specific Mead (test 1.012 1.001-1.035 N code = SPGR) [...] (test code = Moderate /HPF BACT) CK [id number] 09:12:00 Test Item Value Reference Range Interpretation Comments CK (test code = CK) 389 U/L 26-192 H CK [id number] 09:12:00 Test Item Value Reference Range Interpretation Comments CK (test code = CK) 389 U/L 26-192 H CKMB (test code = CKMB) 7.6 ng/mL 0.0-2.8 H CKMB% (test code = CKMBP) 2.0 % 0.0-3.4 N Troponin [id number] 09:11:00 Test Item Value Reference Range Interpretation Comments Troponin T (test code = KARSTEN) <0.010 ng/mL 0.000-0.090 N CBC with [id number] 09:01:00 Test Item Value Reference Range Interpretation [...] code = ALYMPH) 3.3 K/cumm 0.5-4.6 N Morrill Abs (test code = AMONO) 1.0 K/cumm 0.0-1.2 N Eos Abs (test code = AEOS) 0.15 K/cumm 0.00-0.74 N Baso Abs (test code = ABASO) 0.1 K/cumm 0.00-0.21 N Comprehensive Metabolic [id number] 08:53:00 Test Item Value Reference Range Interpretation [...] validated by th e MDRD study and herminio lakhani be interpretedwith caution.eGFR Re sult Interpretation: eGFR > or = 60 is in t he Normal RangeeGF R < 60 may mean kidney diseaseeGFR < 1 5 may mean kidney failureRange s recommended by the National Kidney Foundation,http ://nkd ep.nih.gov Alcohol/Ethanol, [id number] 08:52:00 Test Item Value Reference Range Interpretation Comments Alcohol, Ethyl <0.01 g/dL 0.00-0.01 N Intoxicated 0 .080 g/dL (test code = ETOH) or more [id number] 08:52:00 Test Item Value Reference Range Interpretation Comments Lipase (test code = LIP) 23 U/L 13-60 N Lactic Acid [id number] 08:43:00 Test Item Value Reference Range Interpretation Comments Lactic Acid, Bld (test code = LAC) 1.2 mmol/L 0.5-1.9 N"
--- NOTE | 2022-11-19 13:12 | RAD REPORT ---
EXAM DESCRIPTION: CT - Abdomen Pelvis Wo Contrast - 11/19/2022 12:28 pm CLINICAL HISTORY: eval for dislodged perc nephrostoym tube COMPARISON: [facility] Protocol dated 10/10/2022; Abdomen Pelvis W Contrast dated 10/03/2022; Abdomen 1 V iew (KUB) dated 10/23/2022 TECHNIQUE: Thin cut axial CT imaging of the abdomen and pelvis was performed without IV contrast. Mu ltiplanar reformats were generated and reviewed. All CT scans are performed using dose optimization technique as appropriate and may include automated exposure control or mA/KV adjustment according to patient size. FINDINGS: No suspicious findings in the lung bases. Few left subpleural 3 4 millimeter rounded nodul es are stable. The liver, spleen, and pancreas show no suspicious findings. Gallbladder and biliary tree are also wi thout suspicious finding. Right percutaneous nephrostomy tube in place, with its loop present in the right renal pelvis. Stable right renal staghorn calculi. Mild accumulation of contrast material in the renal calyces with trace mild tracking along the right ureter. Stable mild hydronephrosis. Slight improvement in caliber of t he right hydroureter. No dilated bowel loops or bowel wall thickening. No free air, free fluid or inflammatory stranding. N o hernia, mass or bulky lymphadenopathy. The urinary bladder is without significant finding. No suspicious bony findings. IMPRESSION: Right percutaneous nephrostomy tube in place. Stable mild right hydronephrosis. Slight improvement of right hydroureter. Stable burden of right staghorn calculi. Presence of some contrast material in the right renal collec ting system limits evaluation.
[2022-11-19 13:59] LABS: Absolute Lymphocytes (CBC) 2.9 K/uL (0.7-4.9); Hematocrit 34.6 % (36.0-45.0); Lymphocytes % 35.2 % (15.3-44.8); MCV 85.2 fL (80-100); MPV 7.3 fL (7.6-11.3); RBC Red Blood Cell Count 4.07 M/uL (3.86-4.86)
[2022-11-19 14:05] LABS: Specific Gravity 1.021 (1.005-1.030); Urine Bacteria >50 /HPF (<20); Urine Bilirubin NEGATIVE (Negative); Urine Blood 3+ (Negative); Urine Clarity Extremely Turbid (Clear); Urine Color Light-Orange (Yellow); Urine Glucose NEGATIVE (Negative); Urine Mucus 1+ /HPF (None Seen); Urine Protein 2+ (Negative); Urine RBC >50 /HPF (None Seen); Urine Urobilinogen Normal (Normal)
[2022-11-19 14:08] LABS: Albumin 3.4 g/dL (3.4-5.0); Bilirubin Total 0.3 mg/dL (0.2-1.0); Potassium 4.9 mEq/L (3.5-5.1)
[2022-11-19] MEDS ORDERED: ACETAMINOPHEN 500 MG TAB ONE (15:09)
--- NOTE | 2022-11-19 15:09 | ER ---
Nurse's Notes [facility] Name: Amanda Heath Age: 47 yrs Sex: Female : 1975 Arrival Date: 11/19/2022 Time: 11:21 Bed 25 Private MD: Diagnosis: Other mechanical complication of nephrostomy catheter, initial encounter Presentation: 11/19 11:48 Chief complaint: EMS states: has a kidney blockage, stent in place to right side, iw thinks it's pulled out because the bag isn't feeling. Coronavirus screen: At this time, the client does not indicate any symptoms associated with coronavirus-19. Ebola Screen: Patient negative for fever greater than or equal to 101.5 degrees Fahrenheit, and additional compatible Ebola Virus Disease symptoms Patient denies exposure to infectious person. Patient denies travel to an Ebola-affected area in the 21 days before illness onset. No symptoms or risks identified at this time. Initial Sepsis Screen: Does the patient meet any 2 criteria? No. Patient's initial sepsis screen is negative. Does the patient have a suspected source of infection? No. Patient's initial sepsis screen is negative. Risk Assessment: Do you want to hurt yourself or someone else? Patient reports no desire to harm self or others. Onset of symptoms was November 19, 2022. 11:48 Method Of Arrival: EMS: [facility] iw 11:48 Acuity: ISAI 3 iw Triage Assessment: 12:15 General: Appears in no apparent distress. Behavior is calm, cooperative. iw Historical: - Allergies: 11:50 Morphine; iw - PMHx: 11:50 Hepatitis; HIV; iw - PSHx: 11:50 Appendectomy; hysterectomy; iw Screenin:24 [facility] ED Fall Risk Assessment (Adult) History of falling in the last 3 months, iw including since admission. Abuse screen: Denies threats or abuse. Denies injuries from another. Nutritional screening: No deficits noted. Assessment: 12:15 General: Appears in no apparent distress. Behavior is cooperative. Pain: Complains of iw pain in back. Neuro: Level of Consciousness is awake, alert, obeys commands, Oriented to person, place, time, Moves all extremities. Cardiovascular: Patient's skin is warm and dry. Respiratory: Respiratory effort is even, unlabored, Respiratory pattern is regular. Derm: Skin is intact, is healthy with good turgor. Musculoskeletal: Range of motion: intact in all extremities. Vital Signs: 11:48 BP 126 / 83; Pulse 98; Resp 16; Pulse Ox 98% on R/A; iw ED Course: 11:48 Patient arrived in ED. iw 11:49 Triage completed. iw 11:50 Goldy Deng MD is Attending Physician. bs3 12:15 Arm band placed on. iw 12:30 CT Abd/Pelvis - Without Contrast In Process Unspecified. EDMS 13:40 Inserted saline lock: 20 gauge in left forearm, using aseptic technique. Blood zm collected. 13:40 Urinalysis w/ reflexes Sent. zm 13:40 Comprehensive Metabolic Panel Sent. zm 13:40 CBC with Diff Sent. zm 14:30 Hannah Lazcano RN is Primary Nurse. iw 15:24 No provider procedures requiring assistance completed. IV discontinued, intact, iw bleeding controlled, No redness/swelling at site. Pressure dressing applied. Administered Medications: 15:03 Drug: Acetaminophen PO 1000 mg Route: PO; mb9 15:15 Follow up: Response: No adverse reaction iw 15:25 Not Given (Physician Discretion): Fosfomycin 3 grams PO once mb9 Medication: 15:24 VIS not applicable for this client. iw Outcome: 15:08 Discharge ordered by . bs3 15:25 Patient left the ED. mb9 Addendum: 11/23/2022 14:47 Addendum: Culture Results: Positive urine culture. No further action required. Other: j l7 This is a known infection, pt to follow up and obtain medication as noted in the MD chart . Signatures: Dispatcher [employer] EDVA Hannah Lazacno, SENG ELLSWORTH iw Sherrie Baird RN RN jl7 Krissy Strong Brandon, MD MD bs3 Nory Ruelas RN RN mb9
--- NOTE | 2022-11-19 15:09 | EDPHYS ---
Physician Documentation [facility] Name: Amanda Heath Age: 47 yrs Sex: Female : 1975 Arrival Date: 11/19/2022 Time: 11:21 Bed 25 Private MD: ED Physician Goldy Deng HPI: 11/19 11:53 This 47 yrs old Female presents to ER via EMS with complaints of pulled out bs3 nephrostomy tube. 11:53 47-year-old female history of staghorn kidney on the right, HIV, hepatitis presents bs3 with right flank pain she is 1 week status post percutaneous nephrostomy tube in [place] and she sat up and the tube she thinks got dislodged and since then she has had flank pain and she has no urine output from the bag she notes that she is supposed to be on antibiotics but is not taking anything she notes moderate pain denies any fevers chills chest pain shortness of breath or anything else bothering her. Historical: - Allergies: 11:50 Morphine; iw - PMHx: 11:50 Hepatitis; HIV; iw - PSHx: 11:50 Appendectomy; hysterectomy; iw ROS: 11:53 Constitutional: Negative for fever, chills bs3 11:53 All other systems are negative. Exam: 11:53 Constitutional: This is a well developed, well nourished patient who is awake, alert, bs3 and in no acute distress. Head/Face: Normocephalic, atraumatic. Eyes: Pupils equal round and reactive to light, extra-ocular motions intact. Lids and lashes normal. ENT: mmm, no posterior phyarngeal erythema Neck: Trachea midline, no thyromegaly, no neck stiffness Chest/axilla: Normal chest wall appearance and motion. Nontender with no deformity. No lesions are appreciated. Cardiovascular: Regular rate and rhythm with a normal S1 and S2. symmetric pulses in upper extremities Respiratory: Lungs have equal breath sounds bilaterally, clear to auscultation, no respiratory distress Abdomen/GI: Soft, non-tender, no rebound or guarding Skin: Warm, dry with normal turgor. Normal color with no rashes, no lesions, and no evidence of cellulitis. MS/ Extremity: Pulses equal, no cyanosis. Neurovascular intact. Full, normal range of motion. Neuro: Awake and alert, GCS 15, oriented to person, place, time, and situation. Cranial nerves II-XII grossly intact. Motor strength 5/5 in all extremities. Sensory grossly intact. Vital Signs: 11:48 BP 126 / 83; Pulse 98; Resp 16; Pulse Ox 98% on R/A; iw MDM: 11:50 Patient medically screened. bs3 15:07 Data reviewed: vital signs, nurses notes. ED course: CT consistent with nephrostomy bs3 tube in place Labs are normal her pain was improved we do not have fosfomycin here however she notes that tomorrow she can get her fosfomycin prescription through Medicaid advised to get this is soon as possible return precautions given, she was requesting to go home. 11/19 11:52 Order name: CBC with Diff; Complete Time: 14:21 bs3 11/19 11:52 Order name: Comprehensive Metabolic Panel; Complete Time: 14:21 bs3 11/19 11:52 Order name: Urinalysis w/ reflexes; Complete Time: 14:21 bs3 11/19 14:10 Order name: Urine Culture EDAL 11/19 11:52 Order name: CT Abd/Pelvis - Without Contrast; Complete Time: 13:42 bs3 Administered Medications: 15:03 Drug: Acetaminophen PO 1000 mg Route: PO; mb9 15:15 Follow up: Response: No adverse reaction iw 15:25 Not Given (Physician Discretion): Fosfomycin 3 grams PO once mb9 Disposition Summary: 11/19/22 15:08 Discharge Ordered Location: Home bs3 Problem: new bs3 Symptoms: have improved bs3 Condition: Stable bs3 Diagnosis - Other mechanical complication of nephrostomy catheter, initial encounter bs3 Followup: bs3 - With: Private Physician - When: 1 week - Reason: Re-evaluation by your physician Discharge Instructions: - Discharge Summary Sheet bs3 - Percutaneous Nephrostomy Home Guide bs3 - Percutaneous Nephrostomy bs3 Forms: - Medication Reconciliation Form bs3 - Thank You Letter bs3 - Antibiotic Education bs3 - Prescription Opioid Use bs3 Signatures: Dispatcher [employer] Hannah Yin RN RN iw Goldy Deng MD MD bs3 Nory Ruelas RN RN mb9
[2022-11-19 15:55] VITALS: BP 126/83; O2SAT 98
== END 2022-11-19 15:25 | disposition home or self-care (01) ==
LOC: ER 11:21
DX: T83.092A Other mechanical complication of nephrostomy catheter, initial encounter (principal); Z98.890 Other specified postprocedural states; Z21 Asymptomatic human immunodeficiency virus [HIV] infection status; Z88.5 Allergy status to narcotic agent
CPT/HCPCS: 87088; 85025; 81001; 87086; 36415; 87077; 87186; 80053; 74176; 99284; Q9967

== ENCOUNTER 2022-11-30 20:25 | Emergency (ER) | payer OTHER ==
--- OUTSIDE RECORDS SUMMARY | 2022-11-30 20:31 | XMS REPORT | Continuity of Care Document ---
:1975 Author Organization [facility] t Address [address] [place] [address] [place] [id number] Care Team Providers Name Role Phone MARIAMA LAND Primary Care Physician Unavailable Adi Lockwood Attending Clinician Unavailable Nikki Christianson RN Attending Clinician EVETTE MASON Attending Clinician Unavailable EVETTE MASON Attending Clinician Unavailable Miryam Del Castillo Attending Clinician Beti Berry MD Attending Clinician Dulce Beauchamp Attending Clinician Cricket Monroy MD Attending Clinician Iris Emerson DO Attending Clinician IRIS EMERSON Attending Clinician Unavailable Doctor Unassigned, [place] Attending Clinician Unavailable SARAH LINDQUIST Attending Clinician [...] Number Effective Date Expiration Date Alyse valderrama [employer] [id number] 2017 00:00:00 Problems Condition Condition Condition Status Onset Resolution Last Treating Co mments Source Name Details Category Date Date Treatment Clinician Date Staghorn Staghorn Disease Active Overview: Un tapan calculus calculus 11-10 Formattin ity of 00:00: g of this note Medical might be Branch different from the original. 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 a coli (E. 00 Al dical coli) coli) Branch Pyelonephr Pyelonephr Disease Active U nivers itis itis 11-06 ity of 00:00: Medical Branch Z00.00 Z00.00 Diagnosis Active 2014-062015-05-01 Me moria Active 07-01 13:32:00 l 05/01/2015 00:00: Joe BROWN [address] ENCNTR FOR ENCNTR Diagnosis Active 2015-05-01 Memoria GENERAL FOR 13:32:00 l ADULT GENERAL [place] MEDICAL ADULT EXAM W/ MEDICAL EXAM W/ Active [facility] Allergies, Adverse Reactions, Alerts Allergy Allergy Status Severity Reaction(s) Onset Inactive Treating Comm ents Source Name Type Date Date Clinician Morphine Propensi Active Rash 2022-0 Univer s ty to 5-12 ity of adverse 00:00: [place] reaction 00 Medical s Branch MORPHINE DRUG Active Rash 2022-0 Univers INGREDI 5-12 ity of 00:00: [place] [...] Source History SDOH Social Unive rsity [facility] Medical B ranch Together History SDOH Social Unive rsity [facility] Medica l Branch History SDOH Social Unive rsity [facility] Medical Bran h Membership History SDOH Social Unive rsity [facility] Meetings Medi jeanette Branch Exposure to 2022-10-28 2022-11-07 Not sure [facility] SARS-CoV-2 (event) 00:00:00 10:45:00 Medica l Branch History SDOH Alcohol 2022-11-07 2022-11-07 5 [facility] [place] Frequency 00:00:00 00:00:00 Medical Branch History SDOH Alcohol 2022-11-07 2022-11-07 2 [facility] [place] Std Drinks 00:00:00 00:00:00 Medical Branch History SDOH Alcohol 2022-11-07 2022-11-07 5 [facility] [place] Binge 00:00:00 00:00:00 Medical Branch History SDOH Social 2022-11-07 2022-11-07 5 [facility] Phone 00:00:00 00:00:00 Medical Branch History SDOH Social 2022-11-07 2022-11-07 5 [facility] Living 00:00:00 00:00:00 Medica l Branch History SDOH Physical 2022-11-07 2022-11-07 0 Uni versity of [facility] Activity DPW 00:00:00 00:00:00 Medical Bran ch History SDOH Physical 2022-11-07 2022-11-07 0 [facility] Activity MPS 00:00:00 00:00:00 Medical Bran ch History SDOH 2022-11-07 2022-11-07 5 [facility] Financial 00:00:00 00:00:00 Medical Branch History SDOH Food 2022-11-07 2022-11-07 1 [facility] Worry 00:00:00 00:00:00 Medical Branch History SDOH Food 2022-11-07 2022-11-07 1 [facility] Scarcity 00:00:00 00:00:00 Medical Branch History SDOH 2022-11-07 2022-11-07 2 [facility] Transport Med 00:00:00 00:00:00 Medical Bra nch History SDOH 2022-11-07 2022-11-07 2 [facility] Transport Non-Med 00:00:00 00:00:00 Medical Branch History SDOH Housing 2022-11-07 2022-11-07 2 [facility] Unable to Pay 00:00:00 00:00:00 Medical Bra nch History SDOH Housing 2022-11-07 2022-11-07 1 [facility] Places Lived 00:00:00 00:00:00 Medical Bran ch History SDOH Housing 2022-11-07 2022-11-07 2 [facility] Homeless Last Year 00:00:00 00:00:00 Medica l Branch Sex [birth year] At [birth year] [facility] 00:00:00 00:00:00 Medical Branch Smoking Status Start Date Stop Date Source Tobacco smoking consumption [facility] Medical unknown Branch Medications Ordered Filled Start Stop Current Ordering Indication Dosage Frequency Signature Comments Components Source Medication Medication Date Date Medication? Clinician (SIG) Name Name Nitrofurant 2022- Yes [id number] 100mg Take 1 Univers oin&Nit. 11-25 capsule by ity of [place] 00:00: 04:59 mouth in [place] (MACROBID) 00 :00 the Medical 100 mg morning Branch capsule and 1 capsule in the evening. Do all this for 10 days. Nitrofurant 2023-0 2023- No [id number] 100mg Take 1 Univers oin&Nit. 6-06 05-25 capsule by ity of [place] 00:00: 00:00 [place] (MACROBID) 00 :00 the Medical 100 mg morning Branch capsule and 1 capsule in the evening. Do all this for 10 days. fosfomycin 2022-0 Yes [id number] 3g Take 3 g Univers 3 gram 5-28 by mouth ity of packet 00:00: every [address] [place] [address] ([facility] Medical ) hours. Branch fosfomycin 2022-0 Yes [id number] 3g Take 3 g Univers 3 gram 5-28 by mouth ity of packet 00:00: every [address] [place] [address] ([facility] Medical ) hours. Branch fosfomycin 2022-0 Yes [id number] 3g Take 3 g Univers 3 gram 5-28 by mouth ity of packet 00:00: every [address] [place] [address] ([facility] Medical ) hours. Branch gabapentin 2022-0 Yes 300mg Take 1 Univ ers 300 mg 5-26 capsule by ity of capsule 17:32: mouth in [place] [address] the Medical morning Branch and 1 capsule at noon and 1 capsule in the evening. QUEtiapine 2023-0 Yes 200mg Take 1 Univ ers (SEROQUEL) 5-26 tablet by ity of 200 mg 17:32: mouth in [place] tablet the Medical morning [place] and 1 tablet in the evening. FLUoxetine 3-0 Yes 20mg Take 1 Unive rs (PROZAC) 20 5-26 capsule by it y of mg capsule 17:32: mouth in [facility] as 35 the Medical morning. Branch varenicline 2022-0 Yes 1mg Take 1 Univ ers 1 mg tablet 5-26 tablet by ity of 17:32: mouth. [place] [address] Medical Branch gabapentin 2023-0 Yes 300mg Take 1 Univ ers 300 mg 5-26 capsule by ity of capsule 17:32: mouth in [place] [address] the Medical morning Branch and 1 capsule at noon and 1 capsule in the evening. QUEtiapine 2023-0 Yes 200mg Take 1 Univ ers (SEROQUEL) 5-26 tablet by ity of 200 mg 17:32: mouth in [place] tablet the Medical morning Branch and 1 tablet in the evening. FLUoxetine 2023-0 Yes 20mg Take 1 Unive rs (PROZAC) 20 5-26 capsule by it y of mg capsule 17:32: mouth in [place] [address] the Medical morning. Branch varenicline Yes 1mg Take 1 Univ ers 1 mg tablet 5-26 tablet by ity of 17:32: mouth. [place] [address] Medical Branch bictegrav-e 2022- Yes [id number] 1{tbl} Take 1 Univers mtricit-ten 5-26 06-26 tablet by it y of ofov ala 00:00: 04:59 mouth in [facility] 50-200-25 00 :00 the Medical mg tablet morning Branch for 30 days. bictegrav-e 2022- Yes [id number] 1{tbl} Take 1 Univers mtricit-ten 5-26 06-26 tablet by it y of ofov ala 00:00: 04:59 mouth in [facility] 50-200-25 00 :00 the Medical mg tablet morning Branch for 30 days. bictegrav-e 2022- Yes [id number] 1{tbl} Take 1 Univers mtricit-ten 5-26 06-26 tablet by it y of ofov ala 00:00: 04:59 mouth in [facility] 50-200-25 00 :00 the Medical mg tablet morning Branch for 30 days. benzonatate Yes 100mg 100 mg, Un tapan (TESSALON 5-25 Oral, ity of PERLES) 23:37: Q8HPRN, [place] capsule 100 22 Starting Medi jeanette mg on [facility] 11/13/22 at 1837, Until Discontinu ed, Routine, Cough FLUoxetine Yes 20mg 20 mg, Unive rs (PROZAC) 5-25 Oral, ity of capsule 20 15:00: DAILY, [place] mg 00 First dose Medical on [facility] 11/13/22 at 1000, Until Discontinu ed, Routine bictegrav-e Yes 1{tbl} 1 tablet, Univers mtricit-ten 5-25 Oral, ity of ofov ala 14:00: DAILY, [place] (BIKTARVY) 00 First dose Med ical 50-200-25 on [facility] Branch mg tablet 1 11/13/22 at tablet [...] Comments)< br>Restric imelda use approved by: ERIN ROJO PA gabapentin 2022-0 Yes 300mg Take 1 Univ ers 300 mg 5-25 capsule by ity of capsule 12:09: mouth in [place] [address] the Medical morning Branch and 1 capsule at noon and 1 capsule in the evening. QUEtiapine 2022-0 Yes 200mg Take 1 Univ ers (SEROQUEL) 5-25 tablet by ity of 200 mg 12:09: mouth in [place] [address] the Medical morning Branch and 1 tablet in the evening. FLUoxetine 2022-0 Yes 20mg Take 1 Unive rs (PROZAC) 20 5-25 capsule by it y of mg capsule 12:09: mouth in [facility] as 57 the Medical morning. Branch varenicline 2022-0 Yes 1mg Take 1 Univ ers 1 mg tablet 5-25 tablet by ity of 12:09: mouth. [address] Branch NaCl 0.9% 2022-0 202- No 500mL at 999 Univ ers (NS) [...] (scale 7-10). Indication s: acute pain acetaminoph 2022-0 Yes [id number] 1{tbl} Take 1 [...] Until Discontinu ed, Routine, Pain (scale 7-10) acetaminoph Yes [id number] 1{tbl} Take 1 Un tapan en-codeine 5-25 tablet by ity of (TYLENOL-CO 00:00: mouth [place] DEINE #3) 00 every 6 Medical 300-30 mg (six) Branch tablet hours as needed for Pain (scale 7-10). Indication s: acute pain dronabinoL 2022- Yes [id number] 2.5mg Take 1 Univers 2.5 mg 5-25 06-05 capsule by ity of capsule 00:00: 04:59 mouth in [place] 00 :00 the [facility] morning [place] and 1 capsule in the evening. Do all this for 10 days. sennosides 2022- Yes [id number] 8.6mg Take 1 Univers 8.6 mg 5-25 06-05 tablet by ity of tablet 00:00: 04:59 mouth in [place] 00 :00 the [facility] morning [place] and 1 tablet in the evening. Do all this for 10 days. dronabinoL 2022- Yes [id number] 2.5mg Take 1 Univers 2.5 mg 5-25 06-05 capsule by ity of capsule 00:00: 04:59 mouth in [place] 00 :00 the [facility] morning [place] and 1 capsule in the evening. Do all this for 10 days. sennosides 2022- Yes [id number] 8.6mg Take 1 Univers 8.6 mg 5-25 06-05 tablet by ity of tablet 00:00: 04:59 mouth in [place] 00 :00 the [facility] morning [place] and 1 tablet in the evening. Do all this for 10 days. dronabinoL 2022- Yes [id number] 2.5mg Take 1 Univers 2.5 mg 5-25 06-05 capsule by ity of capsule 00:00: 04:59 mouth in [place] 00 :[address] [facility] and 1 capsule in the evening. Do all this for 10 days. sennosides 0 2022- Yes [id number] 8.6mg Take 1 Univers 8.6 mg 5-25 06-05 tablet by ity of tablet 00:00: 04:59 mouth in [place] 00 :[address] [facility] and 1 tablet in the evening. Do all this for 10 days. magnesium 2022- No 1g 1 g, IV Univ ers sulfate in 11-11 Piggyback, it y of D5W 1 16:00: 16:36 ONCE, 1 [place] gram/100 mL 00 :00 dose, On [facility] RTU IV [facility] Piggyback 1 11/11/22 at g 1100, Administer over 60 Minutes, 100 mL sennosides Yes 8.6mg 8.6 mg, Uni vers (SENOKOT) 11-11 Oral, BID, ity of tablet 8.6 15:15: First dose [place] mg 00 on [facility] 11/11/22 at Branch 1015, Until Discontinu ed, Routine polyethylen Yes 17g 17 g, Unive rs e glycol 11-11 Oral, ity of 3350 powder 15:15: DAILY, [place] 17 g 00 First dose Medical on [facility] 11/11/22 at 1015, Until Discontinu ed, Routine bisacodyL Yes 10mg 10 mg, Univer s (DULCOLAX) 11-11 Rectal, ity of suppository 15:09: QHSPRN, [place] as 10 mg 24 Starting Medical on [facility] 11/11/22 at 1009, Until Discontinu ed, Routine, Constipati on, IF CONSTIPATI ON DOESNT RESPOND TO MIRALAX AND SENNOKOT NaCl 0.9% 2022- No 500mL at 999 Univ ers (NS) bolus 11-11 mL/hr, 500 it y of infusion 03:45: 04:36 mL, IV [place] 500 mL 00 :00 Infusion, Medical ONCE, 1 Branch dose, On [facility] 11/10/22 at 2245, STAT dronabinoL Yes 2.5mg 2.5 mg, Uni vers (MARINOL) 11-11 Oral, BID, ity of capsule 2.5 01:00: First dose [place] mg 00 on [facility] 11/10/22 at Branch 2000, Until Discontinu ed, Routine ondansetron 0 Yes 4mg 4 mg, Slow Univers (ZOFRAN 11-10 IV Push, ity of (PF)) 21:30: Q4HPRN, [place] injection 4 00 Starting Medi jeanette mg on [facility] 11/10/22 at 1630, Until Discontinu ed, Routine, Nausea and Vomiting (N/V) ibuprofen Yes 600mg 600 mg, Univ ers (IBU) 11-09 Oral, ity of tablet 600 23:46: Q6HPRN, [place] mg 13 Starting Medical on [facility] 11/09/22 at 1846, Until Discontinu ed, Routine, Temp > 38.5 C oxyCODONE-a 0 Yes 2{tbl} 2 tablet, Univers cetaminophe 11-09 Oral, ity of n 19:11: Q6HPRN, [place] (PERCOCET) 33 Starting Medic al 5-325 mg on [facility] per tablet 11/09/22 at 2 tablet 1411, Until Discontinu ed, Routine, pain scale 4-10, first line gabapentin Yes 600mg 600 mg, Uni vers (NEURONTIN) 11-09 Oral, TID, it y of capsule 600 19:00: First dose [place] mg 00 (after Medical last Branch modificati on) on [place] 11/09/22 at 1400, Until Discontinu ed, Routine ertapenem 0 2022- No 1000mg 1,000 mg, Univers (INVANZ) 11-09 05-24 IV ity of 1,000 mg in 17:00: 20:24 Piggyback, [place] NaCl 0.9% 00 :42 Q24H ABX, Medic al (NS) 100 mL 7 doses, Bran ch MINI-BAG First dose on [place] 11/09/22 at 1200, Last dose on 11/15/22 at 1200, Administer over 30 Minutes, 100 mL
Reas on for Anti-Infec tive: Documented Infection< br>Documen imelda Infection Site: Urine
D uration of Therapy: 10 days
Re stricted use approved by: Documented ESBL infection or colonizati on in the past 3 months iopamidol 2022- No [id number] 60mL 60 mL, Univers (ISOVUE 11-09 Intravenou ity o f 370-500 mL) 17:00: 17:00 s, ONCE, 1 [place] injection 00 :00 dose, On Medica l 60 mL Sun Branch 11/09/22 at 1200, Routine metoclopram 2022- No 10mg 10 mg, Uni vers efe HCl 11-09 Slow IV ity of (REGLAN) 14:43: 20:24 Push, [place] injection 26 :38 Q6HPRN, Medical 10 mg Starting Branch on 11/09/22 at 0943, Until Thu11/12/22 at 1524, Routine, 2nd line for N/V if zofran doesn't work FENTanyl PF 2022- No 50ug 50 mcg, Un tapan (SUBLIMAZE 11-09 Slow IV ity o f (PF)) 02:43: 23:52 Push, [place] injection 37 :23 Q4HPRN, Medical 50 mcg Starting Branch on 11/08/22 at 2143, Until Thu11/12/22 at 1852, Routine, Pain (scale 7-10) fluticasone Yes 2{spray 2 [place], Univers propionate 11-09 } Nasal, ity of 50 00:45: DAILY, [place] mcg/actuati 00 First dose Me dical on nasal on Sat Branch spray 2 11/08/22 at [place] 1945, Until Discontinu ed, Routine HYDROcodone 2022- No 1{tbl} 1 tablet, Univers -acetaminop 11-09 Oral, ity of hen (NORCO 00:34: 19:12 Q6HPRN, [place] 5) 5-325 mg 24 :43 Starting Medi jeanette tablet 1 on Sat Branch tablet 11/08/22 at 1934, Until 11/09/22 at 1412, Routine, Pain (scale 4-6) lidocaine [...] of tablet 150 15:15: 16:44 ONCE, 1 [place] mg 00 :00 dose, On Medical Sat Branch 11/08/22 at 1015, WILLIAM
Re ason for Anti-Infec tive: Empiric Therapy for Suspected Infection< br>Empiric Therapy Site: Urine
D uration of therapy: 72 hours midazolam 2022- No IV Push, Uni vers (VERSED) 11-07 PRN, ity of injection 17:36: 17:43 Starting [place] 56 :54 on Fri Medical 11/07/22 at Branch 1236, Until Thu11/07/22 at 1243, Routine, Intra-op FENTanyl PF 2022- No Slow IV Un tapan (SUBLIMAZE 11-07 Push, PRN, it y of (PF)) 17:36: 17:43 Starting [place] injection 51 :59 on Fri Medical 11/07/22 at Branch 1236, Until 11/07/22 at 1243, Routine, Intra-op lidocaine 2022- No PRN, Univers 1% (PF) 11-07 Starting ity of (XYLOCAINE) 17:36: 17:36 on Thu [place] as injection 29 :29 11/07/22 at [facility] 1236, Branch Until 11/07/22 at 1236, Routine, Intra-op methocarbam Yes 500mg 500 mg, Un tapan oL 11-07 Oral, QID, ity of (ROBAXIN) 17:00: First dose [place] tablet 500 00 on Fri Medical mg 11/07/22 at Branch 1200, Until Discontinu ed, Routine nicotine Yes 1{patch 1 Patch, Un tapan (NICODERM) 11-07 } Topical, ity o f 21 mg/24 hr 16:00: Administer [place] patch 1 00 over 24 Medical Patch Hours, Branch Q24H, First dose on Thu11/07/22 at 1100, Until Discontinu ed, Routine cefTRIAXone 2022-0 2022- No 1000mg 1,000 mg, Univers (ROCEPHIN) 11-07 IV ity of 1,000 mg in 14:00: 16:03 [place], [place] NaCl 0.9% 00 :40 Q24H ABX, Medic al (NS) 100 mL 7 doses, Bran ch MINI-BAG First dose on Thu11/07/22 at 0900, Last dose on Thu11/13/22 at 0900, Administer over 30 Minutes, 100 mL
Reas on for Anti-Infec tive: Empiric Therapy for Suspected Infection< br>Empiric Therapy Site: Urine
D uration of therapy: 72 hours QUEtiapine 2022-0 Yes 200mg 200 mg, Uni vers (SEROQUEL) 11-07 Oral, BID, ity of tablet 200 03:30: First dose [place] mg 00 on [facility] 11/06/22 at [place] 2230, Until Discontinu ed, Routine gabapentin 2022-0 2022- No 300mg 300 mg, Un tapan (NEURONTIN) 11-07 Oral, TID, i ty of capsule 300 03:30: 15:13 First dose [place] mg 00 :19 on [facility] 11/06/22 at [place] 2230, Until Discontinu ed, Routine gabapentin 2022-0 Yes 300mg Take 1 Univ ers 300 mg 5-18 capsule by ity of capsule 22:24: mouth in [place] 13 the Medical morning Branch and 1 capsule at noon and 1 capsule in the evening. QUEtiapine 2022-0 Yes 200mg Take 1 Univ ers (SEROQUEL) 5-18 tablet by ity of 200 mg 22:24: mouth in [place] tablet 13 the Medical morning Branch and 1 tablet in the evening. FLUoxetine 3-0 Yes 20mg Take 1 Unive rs (PROZAC) 20 5-18 capsule by it y of mg capsule 22:24: mouth in [facility] as 13 the Medical morning. [place] varenicline 2022-0 Yes 1mg Take 1 Univ ers 1 mg tablet 5-18 tablet by ity of 22:24: mouth. [address] enoxaparin 2022-0 2023- No 40mg 40 mg, Univ ers (LOVENOX) 11-06 Subcutaneo ity of injection 22:00: 15:09 us, DAILY, [place] 40 mg 00 :05 First dose Medical on [facility] Branch 11/06/22 at 1700, Until Discontinu ed, Routine ketorolac No 30mg 30 mg, Unive rs (TORADOL) 11-06 Slow IV ity of injection 21:52: 21:51 Push, [place] 30 mg 37 :37 Q6HPRN, Medical Starting Branch on [facility] 11/06/22 at 1652, Until 11/09/22 at 1651, Routine, Alternate with [place] for pain scale 4-6 NaCl 0.9% 2022- No 1000mL at 75 [facility] ers (NS) IV 11-06 mL/hr, IV ity of infusion 21:45: 18:07 Infusion, [place] 1,000 mL 00 :04 CONTINUOUS Medic al , Starting Branch on Thu11/06/22 at 1645, Until Thu11/11/22 at 1307, Routine ondansetron 2022- No 4mg 4 mg, Slow Univers (ZOFRAN 11-06 IV Push, ity of (PF)) 21:36: 21:15 Q6HPRN, [place] injection 4 01 :47 Starting Medi jeanette mg on [facility] Branch 11/06/22 at 1636, Until 11/10/22 at 1615, Routine, Nausea and Vomiting (N/V) FENTanyl PF No 50ug 50 mcg, Un tapan (SUBLIMAZE 11-06 Slow IV ity o f (PF)) 21:35: 14:47 Push, [place] injection 59 :58 Q3HPRN, Medical 50 mcg Starting Branch on [facility] 11/06/22 at 1635, Until Thu11/07/22 at 0947, Routine, Pain (scale 7-10) HYDROcodone 2022- No 1{tbl} 1 tablet, Univers -acetaminop 11-06- Oral, ity of hen (NORCO 21:35: 21:34 Q6HPRN, [place] 5) 5-325 mg 55 :55 Starting Medi jeanette tablet 1 on [facility] Branch tablet 11/06/22 at 1635, Until 11/08/22 at 1634, Routine, Pain (scale 4-6) acetaminoph Yes 650mg 650 mg, Un tapan en 11-06 Oral, ity of (TYLENOL) 21:35: Q6HPRN, [place] tablet 650 52 Starting Medic al mg [...] ity o f (PF)) 19:15: 18:31 Push, [place] injection 00 :00 ONCE, 1 Medical 50 mcg dose, On Branch [facility] 11/06/22 at 1415, Routine ketorolac No 15mg 15 mg, Unive rs (TORADOL) 11-06 Slow IV ity of injection 18:00: 17:25 Push, [place] 15 mg 00 :00 ONCE, 1 Medical dose, On [facility] 11/06/22 at 1300, WILLIAM cefTRIAXone 2022- No 1000mg 1,000 mg, Univers (ROCEPHIN) 10-31 IV ity of 1,000 mg in 22:45: 23:27 [place], [place] NaCl 0.9% 00 :00 ONCE, 1 Medical (NS) 100 mL dose, On [facility] MINI-BAG 10/31/22 at 1745, Administer over 30 Minutes, 100 mL
Reas on for Anti-Infec tive: Documented Infection< br>Documen imelda Infection Site: Urine<br&g t;Duration of Therapy: 7 days FENTanyl PF 2022- No 50ug 50 mcg, Un tapan (SUBLIMAZE 5-12 05-12 Slow IV ity o f (PF)) 22:45: 21:53 Push, [place] injection 00 :00 ONCE, 1 Medical 50 mcg dose, On Branch 10/31/22 at 1745, Routine NaCl 0.9% 2022- No 1000mL at 999 Uni vers (NS) bolus 5-12 05-12 mL/hr, ity of infusion 21:15: 21:56 1,000 mL, [place] as 1,000 mL 00 :00 IV Medical Infusion, Branch ONCE, 1 dose, On Thu10/31/22 at 1615, WILLIAM cefpodoxime 0 Yes [id number] 100mg Take 1 Univers 100 mg 5-12 tablet by ity of tablet 00:00: mouth in [place] 00 the Medical morning Branch and 1 tablet in the evening. acetaminoph 0 Yes 4647 1{tbl} Take 1 Un tapan en-codeine 5-12 tablet by ity of (TYLENOL-CO 00:00: mouth [place] DEINE #3) 00 every 4 Medical 300-30 mg (four) Branch tablet hours as needed for Pain (scale 1-3). Indication s: acute pain cefpodoxime 0 Yes [id number] 100mg Take 1 Univers 100 mg 5-12 tablet by ity of tablet 00:00: mouth in [place] 00 the morning Branch and 1 tablet in the evening. acetaminoph 0 Yes 4647 1{tbl} Take 1 Un tapan en-codeine 5-12 tablet by ity of (TYLENOL-CO 00:00: mouth [place] DEINE #3) 00 every 4 Medical 300-30 mg (four) Branch tablet hours as needed for Pain (scale 1-3). Indication s: acute pain cefpodoxime 2022- No [id number] 100mg Take 1 Univers 100 mg 5-12 05-25 tablet by ity of tablet 00:00: 00:00 mouth in [place] 00 :00 the morning Branch and 1 tablet in the evening. acetaminoph 0 2022- No 4647 1{tbl} Take 1 U nivers en-codeine 5-12 05-25 tablet by ity of (TYLENOL-CO 00:00: 00:00 mouth [place] DEINE #3) 00 :00 every 4 Medical 300-30 mg (four) Branch tablet hours as needed for Pain (scale 1-3). Indication s: acute pain cefpodoxime No [id number] 100mg Take 1 Univers 100 mg 5-12 05-12 tablet by ity of tablet 00:00: 00:00 mouth in [place] 00 :00 the Medical morning Branch and 1 tablet in the evening. Do all this for 7 days. acetaminoph No 4647 1{tbl} Take 1 U nivers en-codeine 5-12 05-12 tablet by ity of (TYLENOL-CO 00:00: 00:00 mouth [place] DEINE #3) 00 :00 every 4 Medical 300-30 mg (four) Branch tablet hours as needed for Pain (scale 1-3). Indication s: acute pain cefpodoxime No [id number] 100mg Take 1 Univers 100 mg 5-12 05-12 tablet by ity of tablet 00:00: 00:00 mouth in [place] 00 :00 the [facility] morning Branch and 1 tablet in the [...] Source Systolic blood 2022-11-14 20:48:00 114 mm[facility]Hg[facility] Diastolic blood 2022-11-14 20:48:00 83 mm[Hg] [facility] Heart rate 2022-11-14 20:48:00 83 /min [facility] Body temperature 2022-11-14 20:48:00 36.89 Joanna [facility] Respiratory rate 2022-11-14 20:48:00 17 /min [facility] Oxygen saturation in 2022-11-14 20:48:00 90 /min [facility] Arterial blood by [facility] Pulse oximetry Branch Body weight 2022-11-13 14:00:00 49.896 kg [facility] [place] [facility] BMI 2022-11-13 14:00:00 17.23 kg/m2 [facility] [place] [facility] Body height 2022-11-06 21:19:00 170.2 cm [facility] [place] [facility] Systolic blood 2022-10-31 23:00:00 129 mm[Hg] Univer sity of pressure [place] [facility] Diastolic blood 2022-10-31 23:00:00 95 mm[Hg] Unive rsity of pressure [place] [facility] Heart rate 2022-10-31 23:00:00 96 /min [facility] [place] [facility] Oxygen saturation in 2022-10-31 23:00:00 96 /min University of Arterial blood by [place] Coraid jeanette Pulse oximetry Branch Respiratory rate 2022-10-31 21:30:00 20 /min [facility] [place] [facility] Body temperature 2022-10-31 20:20:00 36.72 Joanna [facility] [place] [facility] Body weight 2022-10-31 20:20:00 50.803 kg [facility] [place] [facility] Systolic blood 2022-11-09 17:00:00 105 mm[Hg] Univer sity of pressure [place] [facility] Diastolic blood 2022-11-09 17:00:00 71 mm[Hg] [facility] [place] [facility] Heart rate 2022-11-09 17:00:00 108 /min [facility] [place] [facility] Body temperature 2022-11-09 17:00:00 36.39 Joanna [facility] [place] [facility] Respiratory rate 2022-11-09 17:00:00 18 /min [facility] [place] [facility] Oxygen saturation in 2022-11-09 17:00:00 94 /min [facility] Arterial blood by [place] [facility] jeanette Pulse oximetry Branch Body height 2022-11-06 21:19:00 170.2 cm [facility] [place] [facility] Body weight 2022-11-06 21:19:00 49.896 kg [facility] [place] [facility] BMI 2022-11-06 21:19:00 17.23 kg/m2 [facility] [place] [facility] Procedures Procedure Date / Time Performing Clinician Source Performed PHOSPHORUS 2022-11-14 08:05:00 Heidari, [facility] MAGNESIUM 2022-11-14 08:05:00 Marlon [facility] BASIC METABOLIC PANEL (NA, 2022-11-14 08:05:00 Evette Mason [facility] [place] K, CL, CO2, GLUCOSE, BUN, Medica l Branch CREATININE, CA) CBC WITH DIFF 2022-11-14 08:05:00 Marlon [facility] LACTIC ACID WHOLE BLOOD 2022-11-13 08:42:00 Maryjane Win [facility] PHOSPHORUS 2022-11-13 08:36:00 Marlon [facility] MAGNESIUM 2022-11-13 08:36:00 Marlon [facility] BASIC METABOLIC PANEL (NA, 2022-11-13 08:36:00 Hammo [facility], [facility] [place] K, CL, CO2, GLUCOSE, BUN, [facility] Medica l Branch CREATININE, CA) CBC WITH DIFF 2022-11-13 08:36:00 Marlon [facility] PHOSPHORUS 2022-11-12 11:06:00 Blayneidachucky [facility] MAGNESIUM 2022-11-12 11:06:00 Marlon [facility] BASIC METABOLIC PANEL (NA, 2022-11-12 11:06:00 HeidariEvette [facility] [place] K, CL, CO2, GLUCOSE, BUN, Medica l Branch CREATININE, CA) CBC WITH DIFF 2022-11-12 11:06:00 Marlon [facility] PHOSPHORUS 2022-11-11 09:58:00 Heidari [facility] MAGNESIUM 2022-11-11 09:58:00 Heidari [facility] BASIC METABOLIC PANEL (NA, 2022-11-11 09:58:00 HeidariEvette [facility] [place] K, CL, CO2, GLUCOSE, BUN, Medica l Branch CREATININE, CA) CBC WITH DIFF 2022-11-11 09:58:00 Marlon [facility] LACTIC ACID WHOLE BLOOD 2022-11-11 09:58:00 Maryjane Win [facility] SYPHILIS IGG/IGM 2022-11-10 23:46:00 Erin Rojo [facility] CD4 SUBSET ASSAY 2022-11-10 19:02:00 Erin Rojo [facility] HUMAN IMMUNODEFICIENCY 2022-11-10 19:02:00 Erin Rojo [facility] VIRUS 1 (HIV-1) BY [facility] QUANTITATIVE NAAT BASIC METABOLIC PANEL (NA, 2022-11-10 10:51:00 Richard Berry [facility] K, CL, CO2, GLUCOSE, BUN, Medica l Branch CREATININE, CA) CBC WITHOUT DIFF 2022-11-10 10:51:00 Beti Berry [facility] HIV 1/2 AG-AB WITH REFLEX 2022-11-10 10:51:00 Erin Rojo [facility] HIV 1/2 AB SUPPLEMENTAL 2022-11-10 10:51:00 [facility] 2022-11-09 18:08:00 Beti Berry [facility] CT THORAX W CONTRAST 2022-11-09 16:00:00 Beti Berry [facility] IR PLACEMENT 2022-11-07 18:27:16 [facility] NEPHROURETERAL CATHETER [facility] PERCUTANEOUS INCLUDES DIAGNOSTIC NEPHROGRAM IR PLACEMENT 2022-11-07 18:27:16 [facility] NEPHROURETERAL CATHETER [facility] PERCUTANEOUS INCLUDES DIAGNOSTIC NEPHROGRAM CT THORAX WO CONTRAST 2022-11-07 16:45:20 Beti Berry [facility] CT THORAX WO CONTRAST 2022-11-07 16:45:20 Beti Berry [facility] PROTHROMBIN TIME / INR 2022-11-07 08:32:[address] [facility] PROT[facility]OMBIN TIME / INR 2022-11-07 08:32:[address] [facility] URINE DRUG (IMMUNOASSAY) - 2022-11-06 17:29:00 Miryam Stoll [facility] COMPREHENSIVE DRUG SCREEN [place] URINE DRUG (IMMUNOASSAY) - 2022-11-06 17:29:00 DodieMiryam hernandez [facility] COMPREHENSIVE DRUG SCREEN [place] [place] URINE CULTURE 2022-11-06 17:15:00 Miryam Stoll [facility] URINE CULTURE 2022-11-06 17:15:00 DodieMiryam hernandez [facility] CT ABDOMEN PELVIS WO 2022-11-06 17:14:37 Miryam Stoll [facility] CONTRAST [facility] CT ABDOMEN PELVIS WO 2022-11-06 17:14:37 Miryam Stoll [facility] CONTRAST [facility] CBC WITH DIFF 2022-11-06 16:48:00 Miryam Stoll [facility] COMP. METABOLIC PANEL 2022-11-06 16:48:00 Miryam Stoll [facility] ([id number]) [facility] [place] URINALYSIS 2022-11-06 16:48:00 Miryam Stoll [facility] MAGNESIUM 2022-11-06 16:48:00 Miryam Stoll [facility] TROPONIN I 2022-11-06 16:48:00 Miryam Stoll [facility] MAGNESIUM 2022-11-06 16:48:00 Miryam Stoll [facility] TROPONIN I 2022-11-06 16:48:00 Miryam Stoll [facility] COMP. METABOLIC PANEL 2022-11-06 16:48:00 Miryam Stoll [facility] ([id number]) [facility] CBC WITH DIFF 2022-11-06 16:48:00 Miryam Stoll [facility] URINALYSIS 2022-11-06 16:48:00 Miryam Stoll [facility] CONSENT/REFUSAL FOR 2022-11-06 15:39:43 Doctor Unassigned, [facility] DIAGNOSIS AND TREATMENT [place] [facility] [place] CONSENT/REFUSAL FOR 2022-11-06 15:39:43 [facility] DIAGNOSIS AND TREATMENT [place] [facility] [place] HOSPITAL ADMISSION 2022-11-06 05:01:00 [facility] [place] [facility] URINALYSIS 2022-10-31 22:05:00 Iris Emerson [facility] URINALYSIS 2022-10-31 22:05:00 Iris Emerson [facility] [place] COMP. METABOLIC PANEL 2022-10-31 21:58:00 Iris Emerson [facility] ([id number]) Medical Branch COMP. METABOLIC PANEL 2022-10-31 21:58:00 Iris Emerson [facility] ([id number]) Medical Branch CT ABDOMEN PELVIS WO 2022-10-31 21:12:27 Iris Emerson [facility] CONTRAST [place] CT ABDOMEN PELVIS WO 2022-10-31 21:12:27 Iris Emerson [facility] CONTRAST Medical Branch CBC WITH DIFF 2022-10-31 20:41:00 Iris Emerson [facility] [place] CBC WITH DIFF 2022-10-31 20:41:00 Iris Emerson [facility] NOTICE OF PRIVACY 2022-10-31 20:14:23 Doctor Disla [facility] [place] [facility] [place] NOTICE OF PRIVACY 2022-10-31 20:14:23 Doctor Disla [facility] [place] [facility] [place] CONSENT/REFUSAL FOR 2022-10-31 20:14:09 Doctor Disla [facility] DIAGNOSIS AND TREATMENT [place] [facility] [place] REFERRAL- REQUEST/RESPONSE 2022-10-14 05:01:00 Doctor Disla [facility] Name [facility] [place] Encounters Start End Encounter Admission Attending Care Care Encounter Source Date/Time Date/Time Type Type Clinicians Facility Department ID 2022-10-16 [facility] [place] [facility] [id number] Common 14:58:02 [facility] 11504 [facility] 2022-10-15 [facility] [place] [id number] Common 13:00:01 [facility] [id number] [facility] 2022-09-16 Emergency HFD HFD [id number] VICENTE - 02:29:57 [facility] ent 2016-03-07 Inpatient C [facility] MED [id number] St. 15:30:00 [facility] 2022-11-18 2022-11-18 Transition RYLAN Christianson 1.2.840.114 [id number] Univers 00:00:00 00:00:00 of Care Nikki Birgit ESPINAL 350.1.13.10 i [place] [id number] [facility] 403 Branch 2022-11-06 2022-11-14 Inpatient X BIANCA MASONNAM [facility] [id number] Univers 10:51:00 17:32:00 EVETTE MASON ity of [facility] 2022-11-06 2022-11-14 [facility] Miryam Stoll [facility] 1.2.840.1 14 [id number] Univers 10:51:00 17:32:00 [facility] 350.1.13. 10 ity of Evette moody [facility] 4.2.7.2.686 [place] [id number] [address] ([facility]) 2022-11-14 2022-11-14 Letter NitoJONATAN 1.2.183.585 [id number] Univers 00:00:00 00:00:00 (Out) Dulce Carrasco [facility] 350.1.13.10 i ty of [place] [id number] [facility] 084 Branch 2022-11-07 2022-11-07 Travel 1.2.840.1 1.2.546.982 [id number] Univers 00:00:00 00:00:00 01199.1.1 350.1.13.10 ity of 3.104.2.7 [place].698 [place] .3.016022 084.8 Medica l .8 Branch 2022-11-06 2022-11-06 Travel 1.2.840.1 1.2.059.678 [id number] Univers 00:00:00 00:00:00 89608.1.1 350.1.13.10 ity of 3.104.2.7 [place].698 [place] .3.632192 084.8 Medica l .8 Branch 2022-11-05 2022-11-05 Telephone Porfirio, 1.2.840.9 [id number] Univers 00:00:00 00:00:00 Cricket 39257.1.1 ity of 3.104.2.7 [place] .3.935135 Medica [place] .[place] 2022-10-31 2022-10-31 Emergency Idania, 1.2.840.0 [id number] Univers 15:23:00 18:38:00 Iris Alvarado 62274.1.1 ity of 3.104.2.7 [place] .3.081000 Medica l .[place] 2022-10-31 2022-10-31 Emergency X IDANIA, [facility] ERT [id number] Univers 15:23:00 18:38:[address] [facility] 2022-10-31 2022-10-31 Travel 1.2.840.1 1.2.128.418 [id number] Univers 00:00:00 00:00:00 56208.1.1 350.1.13.10 ity of 3.104.2.7 [place].698 [place] .3.308356 084.8 Medica l .8 [place] 2022-10-31 2022-10-31 Orders Doctor 1.2.840.2 [id number] Univers 00:00:00 00:00:00 Only Unassigned, 05165.1.1 ity of [place] 3.104.2.7 [place] .3.732541 Medica l .8 [place] 2022-10-16 2022-10-16 Outpatient [facility] [id number] Mina 15:18:53 15:18:53 [id number] F Marv 2022-10-15 2022-10-15 Outpatient [facility] [id number] Mina 10:21:44 10:21:44 [id number] F Marv 2022-10-14 2022-10-14 Orders Doctor 1.2.840.3 [id number] Univers 00:00:00 00:00:00 Only Unassigned, 69993.1.1 ity of [place] 3.104.2.7 [place] .3.648215 Medica l .8 Branch 2022-10-08 2022-10-08 Outpatient [facility] [id number] Mina 14:33:57 14:33:57 [id number] F Marv 2022-09-16 2022-09-16 Emergency [facility] [id number] [place] 02:14:00 04:47:00 [facility] 2022-06-29 2022-06-29 Emergency E CHAVA [facility] [id number] [facility] 09:24:00 11:56:00 SARAH ANDREA 2022-02-18 2022-02-18 [facility] [id number] Jostin 15:58:27 23:59:00 [facility] 2022-02-06 2022-02-06 [facility]patient [facility] [id number] [facility] 00:00:00 00:00:00 YON 2021-03-17 2021-03-18 Emergency E MYA [facility] [id number] [facility] 20:34:00 04:37:00 SAMIRA 2021-03-15 2021-03-17 Inpatient E KIM [facility] MED [id number] [facility] 11:26:00 17:15:00 MANA 2018-05-03 2018-05-03 Outpatient [facility] [id number] [facility] 00:00:00 00:00:00 2018-04-07 2018-04-07 Outpatient [facility] [id number] [facility] 00:00:00 00:00:00 2018-03-29 2018-03-29 Outpatient [facility] [id number] [facility] 15:40:27 15:40:27 2018-03-29 2018-03-29 Outpatient [facility] [id number] [facility] 15:07:58 15:07:58 2018-03-29 2018-03-29 Outpatient [facility] [id number] [facility] 14:41:19 14:41:19 2015-05-01 2015-05-02 Outpatient [facility] [id number] Memoria 19:22:00 05:59:00 r Yfn Limon [facility] 2015-05-01 2015-05-02 Outpatient [facility] [id number] Memoria 19:22:00 05:59:00 r Yfn Limon [facility] 2015-05-01 2015-05-01 Outpatient Duncan, [facility] [id number] 13:22:00 23:59:00 Fatimah Braxton Blanco Results Test Description Test Time Test Comments Results Result Comments Source Lactic Acid Whole Blood 2022-11-13 08:48:46 Test Item Value Reference Range Interpretation Comme nts LACTIC ACID (test code = 4321111877) 0.93 mmol/L 0.50-2.20 Lab Interpretation (test code = 90735-1) Normal [facility] 1/2 AG-AB WITH [id number] 18:42:11 Test Item Value Reference Range Interpretation Comments HIV Semi-quantitative 294.00 Negative A (test code = 15785-7) ANDREW (test code = ANDREW) This is a preliminary result. Specimen is presumptive reactive for anti-HIV-1, anti-HIV-2, or p24 antigen. Further testing for confirmation has been ordered.This is a preliminary result. Specimen is presumptive reactive for anti-HIV-1, anti-HIV-2, or p24 antigen. Further testing for confirmation has been ordered. Lab Interpretation (test Abnormal code = 82349-7) [facility] SUPPLE[facility]AL [id number] 18:42:11 Test Item Value Reference Range Interpretation Comments HIV Supplemental Positive Confirmatory Testing (test code = 4078004464) HIV-1 Ab Confirmation Positive (test code = 6132929165) HIV-2 Ab Confirmation Negative (test code = 5327926971) ANDREW (test code = ANDREW) Patient is confirmed to have HIV-1 infection. [facility] Whole [id number] 10:08:09 Test Item Value Reference Range Interpretation Comments LACTIC ACID (test code = 1.44 mmol/L 0.50-2.20 3660980079) Lab Interpretation (test code = Normal 54181-2) [facility] METABOLIC PANEL (NA, K, CL, CO2, GLUCOSE, BUN, CREATININE, CA)2022-11-10 11:27:42 Test Item Value Reference Range Interpretation Comments NA (test code = 136 mmol/L 135-145 5986434328) K (test code = 3.8 mmol/L 3.5-5.0 1590021586) CL (test code = 107 mmol/L 98-108 4871072916) CO2 TOTAL (test code = 22 mmol/L 23-31 L 7134378171) AGAP (test code = 7 2-16 5055476833) BUN (test code = 21 mg/dL 7-23 1872725355) GLUCOSE (test code = 97 mg/dL 70-110 8207987249) CREATININE (test code = 0.79 mg/dL 0.50-1.04 3548556958) CALCIUM (test code = 7.9 mg/dL 8.6-10.6 L 0896722110) eGFR (test code = 77.4 mL/min/1.73m2 9066092696) ANDREW (test code = ANDREW) Association of [...] tests). Lab Interpretation Abnormal (test code = 99902-5) [facility] WITHOUT [id number] 10:58:36 Test Item Value Reference Range Interpretation Comments WBC (test code = 6690-2) 13.92 See_Comment H [A utomated message] The system [employer] generated this result transmit imelda reference range : 4.30 - 11.10 10*3/?L. The reference range was not used to interpret this result as normal/abnormal . RBC (test code = 789-8) 2.90 See_Comment L [Au tomated message] The system [employer] generated this result transmit imelda reference range [...] 195 See_Comment [Au tomated message] The system [employer] generated this result transmit imelda reference range : 166 - 358 10*3/?L. The reference range was not used to interpret this result as normal/abnormal . MPV (test code = 9.7 fL 9.5-12.9 91326-8) RDW-CV (test code = 16.2 % 12.0-15.5 H 788-0) RDW-SD (test code = 50.2 fL 39.0-49.9 H 80953-2) NRBC x10^3 (test code = See_Comment [Au tomated message] 3594213165) The system [employer] generated this result transmit imelda reference range : 10*3/?L. The reference range was not used to interpret this result as normal/abnormal . NRBC/100 WBC (test code 0.0 See_Comment [Au tomated message] = 7243729412) The system [employer] generated this result transmit imelda reference range : 0.0 - 10.0 /100 WBC s. The reference r jack was not used to interpret this result as normal/abnormal . IPF % (test code = 0707361973) Lab Interpretation (test Abnormal code = 23490-1) [facility]. METABOLIC PANEL ([id number])2022-11-06 17:49:43 Test Item Value Reference Range Interpretation Comments NA (test code = 139 mmol/L 135-145 9282988308) K (test code = 4.3 mmol/L 3.5-5.0 Slight 4052412139) hemolysis CL (test code = 108 mmol/L 98-108 4204038465) CO2 TOTAL (test code 25 mmol/L 23-31 = 5114108192) AGAP (test code = 6 2-16 3912424151) BUN (test code = 14 mg/dL 7-23 Slight 3731366904) hemolysis GLUCOSE (test code = 73 mg/dL 70-110 6799617406) CREATININE (test code 0.53 mg/dL 0.50-1.04 = 0443115439) TOTAL BILI (test code 0.5 mg/dL 0.1-1.1 = 5456864644) CALCIUM (test code = 8.6 mg/dL 8.6-10.6 3032887577) T PROTEIN (test code 7.5 g/dL 6.3-8.2 = 5442343956) ALBUMIN (test code = 3.5 g/dL 3.5-5.0 2994823394) ALK PHOS (test code = 60 U/L 34-122 Slight 8014806668) hemolysis ALTv (test code = 86 U/L 5-35 H 1742-6) AST(SGOT) (test code 76 U/L 13-40 H Slight = 9627332539) hemolysis eGFR (test code = 122.6 mL/min/1.73m2 5671868693) ANDREW (test code = ANDREW) Association of [...] tests). Lab Interpretation Abnormal (test code = 67888-3) [facility]. METABOLIC PANEL (72306)2022-11-06 17:49:43 Test Item Value Reference Range Interpretation Comments NA (test code = 139 mmol/L 135-145 3683979222) K (test code = 4.3 mmol/L 3.5-5.0 Slight 7117635784) hemolysis CL (test code = 108 mmol/L 98-108 2213896470) CO2 TOTAL (test code 25 mmol/L 23-31 = 1659021611) AGAP (test code = 6 2-16 2124150952) BUN (test code = 14 mg/dL 7-23 Slight 8118902992) hemolysis GLUCOSE (test code = 73 mg/dL 70-110 2842835539) CREATININE (test code 0.53 mg/dL 0.50-1.04 = 0399104842) TOTAL BILI (test code 0.5 mg/dL 0.1-1.1 = 7243922008) CALCIUM (test code = 8.6 mg/dL 8.6-10.6 0625618150) T PROTEIN (test code 7.5 g/dL 6.3-8.2 = 0383869238) ALBUMIN (test code = 3.5 g/dL 3.5-5.0 7030085001) ALK PHOS (test code = 60 U/L 34-122 Slight 0752715234) hemolysis ALTv (test code = 86 U/L 5-35 H 1742-6) AST(SGOT) (test code 76 U/L 13-40 H Slight = 5131344778) hemolysis eGFR (test code = 122.6 mL/min/1.73m2 0537853189) ANDREW (test code = ANDREW) Association of [...] tests). Lab Interpretation Abnormal (test code = 67041-2) [facility] [id number] 17:46:24 Test Item Value Reference Range Interpretation Comments TROPONIN I (test code = 0.005 ng/mL <=0.034 6165799664) ANDREW (test code = ANDREW) Reference (Normal) [...] biotin. Lab Interpretation Normal (test code = 20048-3) [facility] [id number] 17:46:24 Test Item Value Reference Range Interpretation Comments TROPONIN I (test code = 0.005 ng/mL <=0.034 5206184322) ANDREW (test code = ANDREW) Reference (Normal) [...] biotin. Lab Interpretation Normal (test code = 20750-4) [facility] 17:35[facility]44 Test Item Value Reference Range Interpretation Comments MAGNESIUM (test code = 1639972305) 1.6 mg/dL 1.7-2.4 L Lab Interpretation (test code = Abnormal 80500-4) [facility]2023-05-18 17:35:44 Test Item Value Reference Range Interpretation Comments MAGNESIUM (test code = 6731119500) 1.6 mg/dL 1.7-2.4 L Lab Interpretation (test code = Abnormal 17726-6) [facility] WITH [id number] 17:24:02 Test Item Value Reference Range Interpretation Comments WBC (test code = 6.06 See_Comment [Automated 6690-2) message] The sy stem [...] RDW-SD (test code = 49.9 fL 39.0-49.9 27469-5) RDW-CV (test code = 16.2 % 12.0-15.5 H 788-0) PLT (test code = 329 See_Comment [Automated 777-3) message] The sy stem which generated this result transmitted reference range : 166 - 358 10*3/ ?L. The reference r jack was not used to interpret this result as normal/abnormal . MPV (test code = 9.6 fL 9.5-12.9 04148-0) NRBC/100 WBC (test 0.0 See_Comment [Automat ed code = 3895057073) message] The system which generated this result transmitted reference range : 0.0 - 10.0 /100 WBCs. The refer ence range was not u sed to interpret th is result as normal/abnormal . NRBC x10^3 (test code See_Comment [Auto mated = 4859742652) message] The s ystem which generated this result transmitted reference range : 10*3/?L. The reference range was not used to interpret this result as normal/abnormal . GRAN MAT (NEUT) % 48.9 % (test code = 770-8) IMM GRAN % (test code 1.20 % = 2081759786) LYMPH % (test code = 38.8 % 736-9) MONO % (test code = 9.6 % 5905-5) EOS % (test code = 1.2 % 713-8) BASO % (test code = 0.3 % 706-2) GRAN MAT x10^3(ANC) 2.97 10*3/uL 1.88-7.09 (test code = 9150095344) IMM GRAN x10^3 (test 0.07 10*3/uL 0.00-0.06 H code = 0346667770) LYMPH x10^3 (test code 2.35 10*3/uL 1.32-3.29 = 731-0) MONO x10^3 (test code 0.58 10*3/uL 0.33-0.92 = 742-7) EOS x10^3 (test code = 0.07 10*3/uL 0.03-0.39 711-2) BASO x10^3 (test code 0.01-0.07 = 704-7) Lab Interpretation Abnormal (test code = 54668-0) [facility] WITH [id number] 17:24:02 Test Item Value Reference Range Interpretation Comments WBC (test code = 6.06 See_Comment [Automated 6690-2) message] The sy stem [...] RDW-SD (test code = 49.9 fL 39.0-49.9 66060-0) RDW-CV (test code = 16.2 % 12.0-15.5 H 788-0) PLT (test code = 329 See_Comment [Automated 777-3) message] The sy stem which generated this result transmitted reference range : 166 - 358 10*3/ ?L. The reference r jack was not used to interpret this result as normal/abnormal . MPV (test code = 9.6 fL 9.5-12.9 38892-1) NRBC/100 WBC (test 0.0 See_Comment [Automat ed code = 8210804075) message] The system which generated this result transmitted reference range : 0.0 - 10.0 /100 WBCs. The refer ence range was not u sed to interpret th is result as normal/abnormal . NRBC x10^3 (test code See_Comment [Auto mated = 9934483812) message] The s ystem which generated this result transmitted reference range : 10*3/?L. The reference range was not used to interpret this result as normal/abnormal . GRAN MAT (NEUT) % 48.9 % (test code = 770-8) IMM GRAN % (test code 1.20 % = 2607725350) LYMPH % (test code = 38.8 % 736-9) MONO % (test code = 9.6 % 5905-5) EOS % (test code = 1.2 % 713-8) BASO % (test code = 0.3 % 706-2) GRAN MAT x10^3(ANC) 2.97 10*3/uL 1.88-7.09 (test code = 8296996572) IMM GRAN x10^3 (test 0.07 10*3/uL 0.00-0.06 H code = 4245269532) LYMPH x10^3 (test code 2.35 10*3/uL 1.32-3.29 = 731-0) MONO x10^3 (test code 0.58 10*3/uL 0.33-0.92 = 742-7) EOS x10^3 (test code = 0.07 10*3/uL 0.03-0.39 711-2) BASO x10^3 (test code 0.01-0.07 = 704-7) Lab Interpretation Abnormal (test code = 49857-0) [facility]. METABOLIC PANEL (33613)2022-10-31 22:52:50 Test Item Value Reference Range Interpretation Comments NA (test code = 139 mmol/L 135-145 9336999015) K (test code = 3.9 mmol/L 3.5-5.0 0930267135) CL (test code = 107 mmol/L 98-108 0303664935) CO2 TOTAL (test code = 25 mmol/L 23-31 1293542942) AGAP (test code = 7 2-16 1512948273) BUN (test code = 23 mg/dL 7-23 3134167074) GLUCOSE (test code = 97 mg/dL 70-110 9088077252) CREATININE (test code = 0.54 mg/dL 0.50-1.04 3546316502) TOTAL BILI (test code = 0.2 mg/dL 0.1-1.9 9329475667) CALCIUM (test code = 8.6 mg/dL 8.6-10.6 3365976859) T PROTEIN (test code = 7.1 g/dL 6.3-8.2 1918371363) ALBUMIN (test code = 3.3 g/dL 3.5-5.0 L 3365403996) ALK PHOS (test code = 95 U/L 34-122 7691118022) ALTv (test code = 70 U/L 5-35 H 1742-6) AST(SGOT) (test code = 52 U/L 13-40 H 7589479521) eGFR (test code = 120.0 mL/min/1.73m2 4157753521) ANDREW (test code = ANDREW) Association of [...] tests). Lab Interpretation Abnormal (test code = 71843-2) [facility] WITH [id number] 21:46:02 Test Item Value Reference Range Interpretation Comments WBC (test code = 7.14 See_Comment [Automated 9053-2) message] The sy stem which generated this result transmitted reference range : 4.30 - 11.10 10*3/?L. The reference range was not used to interpret this result as normal/abnormal . RBC (test code = 3.74 See_Comment L [Automated 190-8) message] The sy stem which generated this [...] RDW-SD (test code = 49.6 fL 39.0-49.9 43766-1) RDW-CV (test code = 15.7 % 12.0-15.5 H 788-0) PLT (test code = 404 See_Comment H [Automated 777-3) message] The sy stem which generated this result transmitted reference range : 166 - 358 10*3/ ?L. The reference r jack was not used to interpret this result as normal/abnormal . MPV (test code = 9.9 fL 9.5-12.9 63293-2) NRBC/100 WBC (test 0.0 See_Comment [Automat ed code = [id number]) message] The system which generated this result transmitted reference range : 0.0 - 10.0 /100 WBCs. The refer ence range was not u sed to interpret th is result as normal/abnormal . NRBC x10^3 (test code See_Comment [Auto mated = [id number]) message] The s ystem which generated this result transmitted reference range : 10*3/?L. The reference range was not used to interpret this result as normal/abnormal . SEG % (test code = 47 % 33-76 37344-7) BAND % (test code = 7 % 0-1 H 21013-7) LYMPH % (test code = 36 % 14-54 33094-0) LG GRAN LYMPH % (test 2 % <=0 H code = 87615-2) MONO % (test code = 6 % 0-4 H 14463-8) EOS % (test code = 2 % 0-3 65857-5) ANC (test code = 3.86 10*3/uL 1.88-7.09 753-4) TOXIC CHANGES (test Present A code = 803-7) Lab Interpretation Abnormal (test code = 72659-6) [facility] [id number] 19:17:00 Specimen: BloodCollected: 12/24/2016 12:51 Status: Final Last Updated: 12/29/2016 19:17 (1) ER Bed 16 Culture Result (Final) (Final) No [facility] [id number] 19:17:00Specimen: BloodCollected: 12/24/2016 12:15 Status: Final Last Updated: 12/29/2016 19:17 (1) ER Bed 16 Culture Result (Final) (Final) No Growth After 5 DaysHelper T-Lymph-CD4 2016-12-26 17:23:00 Test Item Value Reference Range Interpretation Comments % CD 4 Pos. Lymph. (test code = 36.2 % 30.8-58.5 N 877257) Absolute CD 4 [place] (test code 543 /uL 359-1519 N = 387525) WBC (test code = 579957) 10.2 x10E3/uL 3.4-10.8 N RBC (test code = 422760) 3.31 x10E6/uL 3.77-5.28 L Hemoglobin (test code = 984741) 10.6 g/dL 11.1-15.9 L Hematocrit (test code = 406470) 30.9 % 34.0-46.6 L MCV (test code = 996054) 93 fL 79-97 N MCH (test code = 682847) 32.0 pg 26.6-33.0 N MCHC (test code = 244008) 34.3 g/dL 31.5-35.7 N RDW (test code = 395910) 14.5 % 12.3-15.4 N Platelets (test code = 946199) 201 x10E3/uL 150-379 N Neutrophils (test code = 75 % 211640) Lymphs (test code = 810966) 15 % Monocytes (test code = 938039) 10 % Eos (test code = 240205) 0 % Basos (test code = 105144) 0 % Neutrophils (Absolute) (test 7.6 x10E3/uL 1.4-7.0 H code = 554136) Lymphs (Absolute) (test code = 1.5 x10E3/uL 0.7-3.1 N 815051) Monocytes(Absolute) (test code 1.1 x10E3/uL 0.1-0.9 H = 227055) Eos (Absolute) (test code = 0.0 x10E3/uL 0.0-0.4 N 734940) Baso (Absolute) (test code = 0.0 x10E3/uL 0.0-0.2 N 216183) Immature Granulocytes (test 0 % code = 195618) Immature Grans (Abs) (test code 0.0 x10E3/uL 0.0-0.1 N = 223270) Valproic Acid (Depakote),[id number] 09:53:00 Test Item Value Reference Range Interpretation Comments Valproic Acid (test code = VALP) 104.1 ug/mL 50.0-100.0 H Ammonia, [id number] 08:01:00 Test Item Value Reference Range Interpretation Comments Ammonia (test code = NH3) 101.0 umol/L 11.0-35.0 H Glycosylated [id number] 07:07:00 Test Item Value Reference Range Interpretation Comments HBA1c (test code = HBA1C) 4.8 % 4.8-5.9 N Partial Thromboplastin [id number] 06:51:00 Test Item Value Reference Range Interpretation Comments aPTT (test code = PTT) 31.30 seconds 24.39-37.25 N Magnesium, [id number] 06:48:00 Test Item Value Reference Range Interpretation Comments Magnesium (test code = MG) 2.4 mg/dL 1.7-2.5 N Comprehensive Metabolic [id number] 06:48:00 Test Item Value Reference Range Interpretation [...] the National Kidney Foundation,http ://nkd ep.nih.gov CK [id number] 06:48:00 Test Item Value Reference Range Interpretation Comments CK (test code = CK) 167 U/L 26-192 N [id number] 06:48:00 Test Item Value Reference Range Interpretation Comments Phosphorus (test code = PO4) 2.3 mg/dL 2.70-4.50 L Prothrombin [id number] 06:47:00 Test Item Value Reference Range Interpretation Comments PT (test code = PT) 11.90 seconds 9.78-13.35 N INR (test code = INR) 1.04 Ratio 0.6-1.2 N CBC with [id number] 06:36:00 Test Item Value Reference Range Interpretation [...] code = ALYMPH) 1.7 K/cumm 0.5-4.6 N [place] Abs (test code = AMONO) 0.7 K/cumm 0.0-1.2 N Eos Abs (test code = AEOS) 0.07 K/cumm 0.00-0.74 N Baso Abs (test code = ABASO) 0.0 K/cumm 0.00-0.21 N POC Glucose, [id number] 20:36:00 Test Item Value Reference Range Interpretation Comments POC Glucose (test 100 mg/dL 70-115 N If you con cradle placer your code = POCGLUC) patient crit ically ill, the [place] Accu- Chek InformII meters hould not be used for Glu cose determinations. Draw a venous Glucose and send to the Main Lab for Analysis. POC Glucose, [id number] 17:15:00 Test Item Value Reference Range Interpretation Comments POC Glucose (test 93 mg/dL 70-115 N Notify RN or MDIf you code = POCGLUC) consider you r patient critically ill, the [place] Accu-Chek InformII metershould not be used for Glucose determinations. Draw a venous Glucose and send to the Main Lab for Analysis. [id number] 17:11:00 Test Item Value Reference Range Interpretation Comments Potassium (test code 2.9 mmol/L 3.5-5.1 LL VERIFIE D BY REPEAT = K) TESTINGREAD SUSANNAH K LAB VALUEST KATHERINE RN 17:11 7 OG [id number] 10:49:00 Test Item Value Reference Range Interpretation [...] code = THC) POSITIVE Negative A Urinalysis [id number] 09:18:00 Test Item Value Reference Range Interpretation Comments Color (test code = COLOR) Yellow Yellow,Straw,Pl N yellow Clarity (test code = Clear Clear N CLAR) Specific [place] (test 1.012 1.001-1.035 N code = SPGR) [...] (test code = Moderate /HPF BACT) CK [id number] 09:12:00 Test Item Value Reference Range Interpretation Comments CK (test code = CK) 389 U/L 26-192 H CK [id number] 09:12:00 Test Item Value Reference Range Interpretation Comments CK (test code = CK) 389 U/L 26-192 H CKMB (test code = CKMB) 7.6 ng/mL 0.0-2.8 H CKMB% (test code = CKMBP) 2.0 % 0.0-3.4 N Troponin [id number] 09:11:00 Test Item Value Reference Range Interpretation Comments Troponin T (test code = KARSTEN) <0.010 ng/mL 0.000-0.090 N CBC with [id number] 09:01:00 Test Item Value Reference Range Interpretation [...] code = ALYMPH) 3.3 K/cumm 0.5-4.6 N [place] Abs (test code = AMONO) 1.0 K/cumm 0.0-1.2 N Eos Abs (test code = AEOS) 0.15 K/cumm 0.00-0.74 N Baso Abs (test code = ABASO) 0.1 K/cumm 0.00-0.21 N Comprehensive Metabolic [id number] 08:53:00 Test Item Value Reference Range Interpretation [...] the National Kidney Foundation,http ://nkd ep.nih.gov Alcohol/Ethanol, [id number] 08:52:00 Test Item Value Reference Range Interpretation Comments Alcohol, Ethyl <0.01 g/dL 0.00-0.01 N Intoxicated 0 .080 g/dL (test code = ETOH) or more [id number] 08:52:00 Test Item Value Reference Range Interpretation Comments Lipase (test code = LIP) 23 U/L 13-60 N Lactic Acid [id number] 08:43:00 Test Item Value Reference Range Interpretation Comments Lactic Acid, Bld (test code = LAC) 1.2 mmol/L 0.5-1.9 N"
[2022-11-30] MEDS ORDERED: DERMABOND SKIN ADHESIVE TOP ONE (20:53)
--- NOTE | 2022-11-30 21:10 | ER ---
Nurse's Notes [facility] Name: Amanda Heath Age: 47 yrs Sex: Female : 1975 Arrival Date: 11/30/2022 Time: 20:25 Bed IW1 Private MD: Diagnosis: Breakdown (mechanical) of nephrostomy catheter, initial encounter Presentation: 11/30 20:47 Chief complaint: Patient states: i have a tear in my nephrostomy bag and i need a new lg3 one. Coronavirus screen: Client denies travel out of the [place] in the last 14 days. At this time, the client does not indicate any symptoms associated with coronavirus-19. Ebola Screen: No symptoms or risks identified at this time. Initial Sepsis Screen: Does the patient meet any 2 criteria? No. Patient's initial sepsis screen is negative. Does the patient have a suspected source of infection? No. Patient's initial sepsis screen is negative. Risk Assessment: Do you want to hurt yourself or someone else? Patient reports no desire to harm self or others. Onset of symptoms is unknown. 20:47 Method Of Arrival: Ambulatory lg3 20:47 Acuity: ISAI 5 lg3 Triage Assessment: 20:48 General: Appears in no apparent distress. comfortable, Behavior is calm, cooperative. lg3 Pain: Denies pain. EENT: No deficits noted. No signs and/or symptoms were reported regarding the EENT system. Neuro: No deficits noted. Gonsalves Agitation-Sedation Scale (RASS): 0 - Alert and Calm Level of Consciousness is awake, alert, obeys commands, Oriented to person, place, time, situation. Cardiovascular: No deficits noted. Denies chest pain, shortness of breath, Capillary refill < 3 seconds Clubbing of nail beds is absent JVD is absent Patient's skin is warm and dry. Respiratory: No deficits noted. Airway is patent Respiratory effort is even, unlabored, Respiratory pattern is regular, symmetrical. GI: No deficits noted. No signs and/or symptoms were reported involving the gastrointestinal system. Abdomen is flat, non-distended. : nephrostomy tube to right back. Derm: No deficits noted. No signs and/or symptoms reported regarding the dermatologic system. Skin is intact, is healthy with good turgor, Skin is dry, Skin is normal, Skin temperature is warm. Musculoskeletal: No deficits noted. No signs and/or symptoms reported regarding the musculoskeletal system. Circulation, motion, and sensation intact. Range of motion: intact in all extremities. 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 - Social history:: Smoking status: Patient reports the use of cigarette tobacco products, smokes one pack cigarettes per day. Screenin:14 [facility] ED Fall Risk Assessment (Adult) History of falling in the last 3 months, kl including since admission No falls in past 3 months (0 pts) Confusion or Disorientation No (0 pts) Intoxicated or Sedated No (0 pts) Impaired Gait No (0 pts) Mobility Assist Device Used No (0 pt) Altered Elimination No (0 pt) Score/Fall Risk Level 0 - 2 = Low Risk Oriented to surroundings, Maintained a safe environment. Abuse screen: Denies threats or abuse. Nutritional screening: No deficits noted. Tuberculosis screening: No symptoms or risk factors identified. Assessment: 21:14 Reassessment: Patient appears in no apparent distress at this time. Patient states kl symptoms have improved. Vital Signs: 20:47 BP 119 / 77; Pulse 64; Resp 17 S; Temp 97.1(TE); Pulse Ox 100% on R/A; Weight 50.8 kg lg3 (R); Height 5 ft. 7 in. (R); 20:47 Body Mass Index 17.54 (50.80 kg, 170.18 cm) lg3 ED Course: 20:28 Patient arrived in ED. ja2 20:30 Goldy Deng MD is Attending Physician. bs3 20:48 Triage completed. lg3 20:48 Arm band placed on left wrist. lg3 21:14 No provider procedures requiring assistance completed. Patient did not have IV access kl during this emergency room visit. Administered Medications: No medications were administered Medication: 21:14 VIS not applicable for this client. kl Outcome: 21:09 Discharge ordered by . bs3 21:14 Discharged to home ambulatory. kl 21:14 Condition: stable 21:14 Discharge instructions given to patient, Instructed on discharge instructions, follow up and referral plans. 21:15 Patient left the ED. kl Signatures: Sharon Aly RN RN Magda Morales RN RN lg3 Sherri Colon Brandon, MD MD bs3
--- NOTE | 2022-11-30 21:10 | EDPHYS ---
Physician Documentation [facility] Name: Amanda Heath Age: 47 yrs Sex: Female : 1975 Arrival Date: 11/30/2022 Time: 20:25 Bed IW1 Private MD: ED Physician Goldy Deng HPI: 11/30 20:51 This 47 yrs old Female presents to ER via Ambulatory with complaints of bs3 Colostomy Bag. 20:51 47-year-old female history of PERC nephrostomy presents as her bag cracked and is bs3 leaking denies any other complaints she notes on she is getting sche denies duled to remove her staghorn calculus denies fevers chills or anything else bothering her. 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 - Social history:: Smoking status: Patient reports the use of cigarette tobacco products, smokes one pack cigarettes per day. ROS: 20:51 Constitutional: Negative for fever, chills bs3 20:51 All other systems are negative. Exam: 20:51 Constitutional: This is a well developed, well nourished patient who is awake, alert, bs3 and in no acute distress. Head/Face: Normocephalic, atraumatic. Eyes: Pupils equal round and reactive to light, extra-ocular motions intact. Lids and lashes normal. ENT: mmm, no posterior phyarngeal erythema MS/ Extremity: Pulses equal, no cyanosis. Neurovascular intact. Full, normal range of motion. Neuro: Awake and alert, GCS 15, oriented to person, place, time, and situation. Cranial nerves II-XII grossly intact. Motor strength 5/5 in all extremities. Sensory grossly intact. Psych: Awake, alert, with orientation to person, place and time. Behavior, mood, and affect are within normal limits. Vital Signs: 20:47 BP 119 / 77; Pulse 64; Resp 17 S; Temp 97.1(TE); Pulse Ox 100% on R/A; Weight 50.8 kg lg3 (R); Height 5 ft. 7 in. (R); 20:47 Body Mass Index 17.54 (50.80 kg, 170.18 cm) lg3 MDM: 20:30 Patient medically screened. bs3 20:51 Data reviewed: vital signs, nurses notes. ED course: Patient here for nephrostomy bag bs3 replacement we were able to locate a bag and give the back to the patient she has follow-up on for her surgery advised return precaution. 21:08 ED course: bag replaced, dc home. bs3 Administered Medications: No medications were administered Disposition Summary: 11/30/22 21:09 Discharge Ordered Location: Home bs3 Problem: new bs3 Symptoms: have improved bs3 Condition: Stable bs3 Diagnosis - Breakdown (mechanical) of nephrostomy catheter, initial encounter bs3 Followup: bs3 - With: Private Physician - When: - Reason: Re-evaluation by your physician Discharge Instructions: - Discharge Summary Sheet bs3 - Percutaneous Nephrostomy Home Guide bs3 Forms: - Medication Reconciliation Form bs3 - Thank You Letter bs3 - Antibiotic Education bs3 - Prescription Opioid Use bs3 Signatures: Magda Young, RN RN lg3 Goldy Deng MD MD bs3
[2022-11-30 21:35] VITALS: BP 119/77; TEMP 97.1; O2SAT 100
== END 2022-11-30 21:15 | disposition home or self-care (01) ==
LOC: ER 20:25
DX: T83.012A Breakdown (mechanical) of nephrostomy catheter, initial encounter (principal); F17.210 Nicotine dependence, cigarettes, uncomplicated; Z21 Asymptomatic human immunodeficiency virus [HIV] infection status
CPT/HCPCS: 99282

== ENCOUNTER → 2023-08-18 | Emergency (ER) | payer OTHER ==
[~2023-08-18] MED LIST: CEFTRIAXONE 1000 MG/VIAL ONE; LIDOCAINE 1% MPF 5 ML VIAL ONE
--- NOTE | 2023-08-18 13:42 | RAD REPORT ---
EXAM DESCRIPTION: RAD - Chest Single View - 08/18/2023 1:36 pm CLINICAL HISTORY: DYSPNEA COMPARISON: Abdomen 1 View (KUB) dated 10/23/2022; Chest Single View dated 10/03/2022; Chest Single Vie w dated 01/28/2020; CHEST SINGLE VIEW dated 07/29/2010 FINDINGS: Lines: None. Lungs: No evidence of edema or pneumonia. Pleural: No significant pleural effusions or pneumothorax. Cardiac: The heart size is within normal limits. Mediastinum: Within normal limits. Bones: No acute fractures. Other: None IMPRESSION: No acute cardiopulmonary disease.
[2023-08-18 13:55] LABS: Protime INR 0.94
[2023-08-18 13:58] LABS: Absolute Lymphocytes (CBC) 2.4 K/uL (0.7-4.9); Hematocrit 28.1 % (36.0-45.0); Lymphocytes % 29.5 % (15.3-44.8); MCV 80.1 fL (80-100); MPV 6.7 fL (7.6-11.3); Platelets 377 thou/uL (152-406); RBC Red Blood Cell Count 3.51 M/uL (3.86-4.86)
[2023-08-18 14:09] LABS: Specific Gravity 1.016 (1.005-1.030)
[2023-08-18 14:15] LABS: Specific Gravity 1.016 (1.005-1.030); Urine Bacteria >50 /HPF (<20); Urine Bilirubin NEGATIVE (Negative); Urine Blood 2+ (Negative); Urine Clarity Extremely Turbid (Clear); Urine Color Light-Orange (Yellow); Urine Glucose NEGATIVE (Negative); Urine Protein 1+ (Negative); Urine RBC >50 /HPF (None Seen); Urine Urobilinogen Normal (Normal); Urine pH 6.5 (5.0-7.0)
[2023-08-18 14:22] LABS: Barbiturates NEGATIVE (NEGATIVE); Benzodiazepines NEGATIVE (NEGATIVE); Cocaine NEGATIVE (NEGATIVE); METHAMPHETAM NEGATIVE (NEGATIVE); Methadone NEGATIVE (NEGATIVE); Opiates NEGATIVE (NEGATIVE); Phencyclidine NEGATIVE (NEGATIVE); THC Cannibis NEGATIVE (NEGATIVE)
[2023-08-18 15:33] LABS: Albumin 2.5 g/dL (3.4-5.0); Bilirubin Direct 0.1 mg/dL (0-0.2); Bilirubin Indirect, Calculated 0.1 mg/dL (0.2-0.8); Bilirubin Total 0.2 mg/dL (0.2-1.0); Magnesium 1.7 mg/dL (1.6-2.4); Potassium 3.8 mEq/L (3.5-5.1); Protein, Total 7.8 g/dL (6.4-8.2); Troponin High Sensitivity 3.5 pg/mL (<58.9)
--- NOTE | 2023-08-18 15:38 | EDPHYS ---
Physician Documentation [facility] Name: Amanda Heath Age: 48 yrs Sex: Female : 1975 Arrival Date: 08/18/2023 Time: 12:22 Bed 19 Private MD: ED Physician Gary Lockwood HPI: 08/18 13:18 This 48 yrs old Female presents to ER via Ambulatory with complaints of Leg Swelling. sp3 13:18 48-year-old female with a history of CHF, COPD, diabetes, bipolar disease, hepatitis C, sp3 HIV with last known CD4 count at 113 presents the ED with chief complaint of bilateral lower extremity swelling and weakness leading to multiple falls. Patient also states that she has urinary symptoms and "kidney pain" on the right side. She also states she has shortness of breath on exertion but denies chest pain, fever, cough, abdominal pain, vomiting, diarrhea, headache, syncope, near syncope, visual hematuria, or any other signs or symptoms on ROS at this time. Patient saw her PCP prior to arrival where she had results obtained for her CBC and CD4 count. He sent her here for further evaluation due to the leg swelling.. 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 - Social history:: Smoking status: Patient reports the use of cigarette tobacco products, smokes one pack cigarettes per day. ROS: 13:19 Constitutional: Negative for fever, chills, and weight loss, Eyes: Negative for injury, sp3 pain, redness, and discharge, ENT: Negative for injury, pain, and discharge, Neck: Negative for injury, pain, and swelling, Cardiovascular: Negative for chest pain, palpitations, and edema, Respiratory: Negative for shortness of breath, cough, wheezing, and pleuritic chest pain, Abdomen/GI: Negative for abdominal pain, nausea, vomiting, diarrhea, and constipation, Back: Negative for injury and pain, Neuro: Negative for headache, weakness, numbness, tingling, and seizure, Psych: Negative for depression, anxiety, suicide ideation, homicidal ideation, and hallucinations, Allergy/Immunology: Negative for hives, rash, and allergies, 13:19 All other systems are negative, Exam: 13:19 Constitutional: This is a well developed, well nourished patient who is awake, alert, sp3 and in no acute distress. Head/Face: Normocephalic, atraumatic. Eyes: Pupils equal round and reactive to light, extra-ocular motions intact. Lids and lashes normal. Conjunctiva and sclera are non-icteric and not injected. Cornea within normal limits. Periorbital areas with no swelling, redness, or edema. ENT: Nares patent. No nasal discharge, no septal abnormalities noted. External auditory canals are clear. Oropharynx with no redness, swelling, or masses, exudates, or evidence of obstruction, uvula midline. Mucous membranes moist. Neck: Trachea midline, no thyromegaly or masses palpated, and no cervical lymphadenopathy. Supple, full range of motion without nuchal rigidity, or vertebral point tenderness. No Meningismus. Chest/axilla: Normal chest wall appearance and motion. Nontender with no deformity. No lesions are appreciated. Cardiovascular: Regular rate and rhythm with a normal S1 and S2. No gallops, murmurs, or rubs. Normal PMI, no JVD. No pulse deficits. Respiratory: Lungs have equal breath sounds bilaterally, clear to auscultation and percussion. No rales, rhonchi or wheezes noted. No increased work of breathing, no retractions or nasal flaring. Abdomen/GI: Soft, non-tender, with normal bowel sounds. No distension or tympany. No guarding or rebound. No evidence of tenderness throughout. Back: No spinal tenderness. No costovertebral tenderness. Full range of motion. Skin: Warm, dry with normal turgor. Normal color with no rashes, no lesions, and no evidence of cellulitis. Neuro: Awake and alert, GCS 15, oriented to person, place, time, and situation. Cranial nerves II-XII grossly intact. Motor strength 5/5 in all extremities. Sensory grossly intact. Cerebellar exam normal. Normal gait. Psych: Awake, alert, with orientation to person, place and time. Behavior, mood, and affect are within normal limits. 13:19 Musculoskeletal/extremity: 2+ pitting edema bilaterally noted below the knee. No posterior calf pain reported.. 13:20 Skin: Multiple abrasions noted on the legs and 1 on the forehead. Normal neurological sp3 exam.. 14:46 ECG was reviewed by the Attending Physician. EKG demonstrates normal sinus rhythm at 90 sp3 bpm with normal intervals, normal QRS, normal axis, normal axis ST segments without evidence of acute ischemia with mild high voltage. Vital Signs: 12:34 BP 110 / 82; Pulse 98; Resp 18 S; Temp 97.8(TE); Pulse Ox 100% on R/A; Weight 53.07 kg as6 (R); Height 5 ft. 7 in. (R); Pain 8/10; 14:02 BP 112 / 76; Pulse 89; Resp 18; Pulse Ox 96% on R/A; ld1 14:53 BP 119 / 75; Pulse 92; Resp 18; Pulse Ox 100% on R/A; ld1 12:34 Body Mass Index 18.32 (53.07 kg, 170.18 cm) as6 12:34 Pain Scale: Adult as6 MDM: 12:46 Patient medically screened. sp3 13:20 Data reviewed: vital signs, nurses notes, lab test result(s), EKG, radiologic studies. sp3 ED course: 48-year-old female with bilateral lower extremity swelling and vague other symptoms with very complex medical history. Will obtain cardiac workup as well as a UA. CT scan of the head not indicated. Disposition pending patient workup and course. Differential diagnosis includes CHF, ACS, pulmonary pathology, electrolyte abnormality and to a lesser likelihood recreational drug use. Patient is on Suboxone and states she has not had any narcotics. She denies recreational drug use.. 15:37 ED course: Patient likely has pyelonephritis given UA symptoms. I am not highly sp3 suspicious for ureterolithiasis. BNP and troponin are negative. We will give small amount of Lasix and Rocephin x 1 with DC on Levaquin for 1 week at home. Follow-up with PCP as needed. Given her HIV and other immune deficiency, we will keep a close eye on her. She understands if she gets worse in any way, spikes fever or has any other symptoms she is to return here for hospital admission. Levaquin's p.o. bioavailability is virtually the same as IV she is not having emesis I believe she will be better suited at home to also avoid nosocomial infection. Patient is okay with the plan and understands criteria for returning and also understands the importance of following up with her PCP and ID physician.. 08/18 13:10 Order name: Basic Metabolic Panel; Complete Time: 15:34 08/18 13:10 Order name: CBC with Diff 08/18 13:10 Order name: LFT's; Complete Time: 15:34 08/18 13:10 Order name: Magnesium; Complete Time: 15:34 08/18 13:10 Order name: NT PRO-BNP; Complete Time: 15:34 08/18 13:10 Order name: PT-INR; Complete Time: 14: 08/18 13:10 Order name: Troponin HS; Complete Time: 15:34 08/18 13:10 Order name: UAM; Complete Time: 14:46 08/18 13:10 Order name: Test, Urine; Complete Time: 14:15 08/18 13:22 Order name: UDS; Complete Time: 14:46 08/18 14:19 Order name: Urine Culture EDNH 08/18 13:10 Order name: XRAY Chest (1 view); Complete Time: 14:01 08/18 13:10 Order name: EKG; Complete Time: 13:11 08/18 13:10 Order name: Cardiac monitoring; Complete Time: 13:58 08/18 13:10 Order name: EKG - Nurse/Tech; Complete Time: 13:58 08/18 13:10 Order name: IV Saline Lock; Complete Time: 13:58 08/18 13:10 Order name: Labs collected and sent; Complete Time: 13:58 08/18 13:10 Order name: O2 Sat Monitoring; Complete Time: 13:11 08/18 13:57 Order name: Labs - recollect needed: recollect light green top; Complete Time: 15:35 bd Administered Medications: 15:43 Not Given (Patient Refused): [id number] mg IVP once; give over 2 minutes ld1 15:57 Drug: Rocephin IV 1 grams IV at calculated rate once; Given slow IV push per pharmacy ld1 instructions Route: IV; Rate: calculated rate; Site: left upper arm; Disposition Summary: 08/18/23 15:38 Discharge Ordered Notes: Location: Home sp3 Condition: Stable sp3 Diagnosis - Pyelonephritis acute sp3 - Peripheral edema, anasarca, pyelonephritis sp3 Followup: sp3 - With: Private Physician - When: Upon discharge from the Emergency Department - Reason: Continuance of care Discharge Instructions: - Discharge Summary Sheet sp3 - Pyelonephritis, Adult sp3 Forms: - Medication Reconciliation Form sp3 - Thank You Letter sp3 - Antibiotic Education sp3 - Prescription Opioid Use sp3 - Patient Portal Instructions sp3 - Leadership Thank You Letter sp3 Prescriptions: - levofloxacin 500 mg Oral tablet - take 1 tablet ORAL route once daily for 7 days; 7 tablet; Refills: 0, Product sp3 Selection Permitted Signatures: Dispatcher [employer] EDMS Nallely Montesinos Lauren, RN RN ld1 Gary Lockwood MD MD sp3 Mike Damon RN RN as6 Corrections: (The following items were deleted from the chart) 15:39 15:37 ED course: Patient likely has pyelonephritis given UA symptoms. I am not highly sp3 suspicious for ureterolithiasis. BNP and troponin are negative. We will give small amount of Lasix and Rocephin x 1 with DC on Levaquin for 1 week at home. Follow-up with PCP as needed.. sp3
--- NOTE | 2023-08-18 15:38 | ER ---
Nurse's Notes [facility] Name: Amanda Heath Age: 48 yrs Sex: Female : 1975 Arrival Date: 08/18/2023 Time: 12:22 Bed 19 Private MD: Diagnosis: Pyelonephritis acute;Peripheral edema, anasarca, pyelonephritis Presentation: 08/18 12:34 Chief complaint: Patient states: bilateral leg swelling and right sided "kidney" pain. as6 Coronavirus screen: At this time, the client does not indicate any symptoms associated with coronavirus-19. Ebola Screen: No symptoms or risks identified at this time. Initial Sepsis Screen: Does the patient meet any 2 criteria? No. Patient's initial sepsis screen is negative. Does the patient have a suspected source of infection? No. Patient's initial sepsis screen is negative. Risk Assessment: Do you want to hurt yourself or someone else? Patient reports no desire to harm self or others. Onset of symptoms was August 17, 2023. 12:34 Acuity: ISAI 3 as6 12:34 Method Of Arrival: Ambulatory as6 Triage Assessment: 12:36 General: Appears in no apparent distress. Behavior is calm, cooperative. Pain: as6 Complains of pain in right flank. 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 - Social history:: Smoking status: Patient reports the use of cigarette tobacco products, smokes one pack cigarettes per day. Screenin:01 [facility] ED Fall Risk Assessment (Adult) History of falling in the last 3 months, ld1 including since admission No falls in past 3 months (0 pts). Abuse screen: Denies threats or abuse. Denies injuries from another. Nutritional screening: No deficits noted. Tuberculosis screening: No symptoms or risk factors identified. Assessment: 14:02 General: Appears in no apparent distress. comfortable, Behavior is calm, cooperative, ld1 appropriate for age. Pain: Denies pain. Neuro: Level of Consciousness is awake, alert, obeys commands, Oriented to person, place, time, situation, Appropriate for age. Cardiovascular: Capillary refill < 3 seconds Patient's skin is warm and dry. Respiratory: Airway is patent Respiratory effort is even, unlabored. GI: Abdomen is round non-distended. : No signs and/or symptoms were reported regarding the genitourinary system. EENT: No signs and/or symptoms were reported regarding the EENT system. Derm: No signs and/or symptoms reported regarding the dermatologic system. Musculoskeletal: No signs and/or symptoms reported regarding the musculoskeletal system. 14:53 Reassessment: No changes from previously documented assessment. Patient and/or family ld1 updated on plan of care and expected duration. Pain level reassessed. Vital Signs: 12:34 BP 110 / 82; Pulse 98; Resp 18 S; Temp 97.8(TE); Pulse Ox 100% on R/A; Weight 53.07 kg as6 (R); Height 5 ft. 7 in. (R); Pain 8/10; 14:02 BP 112 / 76; Pulse 89; Resp 18; Pulse Ox 96% on R/A; ld1 14:53 BP 119 / 75; Pulse 92; Resp 18; Pulse Ox 100% on R/A; ld1 12:34 Body Mass Index 18.32 (53.07 kg, 170.18 cm) as6 12:34 Pain Scale: Adult as6 ED Course: 12:24 Patient arrived in ED. im 12:25 Gary Lockwood MD is Attending Physician. sp3 12:33 Arm band placed on. as6 12:35 Triage completed. as6 13:37 XRAY Chest (1 view) In Process Unspecified. EDMS 13:58 UDS Sent. ld1 13:58 Test, Urine Sent. ld1 13:58 UAM Sent. ld1 14:01 Cookie Montalvo, SENG is Primary Nurse. ld1 16:01 Patient has correct armband on for positive identification. Placed in gown. Bed in low ld1 position. Call light in reach. Side rails up X2. color television console monitor on. Pulse ox on. NIBP on. Door closed. Noise minimized. Warm blanket given. 16:01 No provider procedures requiring assistance completed. IV discontinued, intact, ld1 bleeding controlled, No redness/swelling at site. 16:03 Provided Education on: taking medication . ld1 Administered Medications: 15:43 Not Given (Patient Refused): [id number] mg IVP once; give over 2 minutes ld1 15:57 Drug: Rocephin IV 1 grams IV at calculated rate once; Given slow IV push per pharmacy ld1 instructions Route: IV; Rate: calculated rate; Site: left upper arm; Medication: 16:03 VIS not applicable for this client. ld1 Outcome: 15:38 Discharge ordered by . sp3 16:03 Discharged to home ambulatory, ld1 16:03 Condition: stable 16:03 Discharge instructions given to patient, Instructed on discharge instructions, follow up and referral plans. medication usage, Demonstrated understanding of instructions, follow-up care, medications, Prescriptions given X 1, 16:04 Patient left the ED. ld1 Signatures: Dispatcher [employer] EDMS Cookie Montalvo, RN RN ld1 Gary Lockwood MD MD sp3 Mike Damon RN RN as6 Remedios Stephens
[2023-08-18 16:12] VITALS: BP 119/75; TEMP 97.8; O2SAT 100
[2023-08-18 16:35] LABS: Platelet Estimate ADEQ; White Blood Cell Scan OK (OK)
[2023-08-18 16:36] LABS: Anisocytosis 1+; Blood Morphology Comment NOTED (NOT SEEN)
== END ==
LOC: ER 12:22
DX: N10 Acute pyelonephritis (principal); R60.1 Generalized edema; E11.9 Type 2 diabetes mellitus without complications; J44.9 Chronic obstructive pulmonary disease, unspecified; F17.210 Nicotine dependence, cigarettes, uncomplicated; F20.9 Schizophrenia, unspecified; Z21 Asymptomatic human immunodeficiency virus [HIV] infection status; Z88.5 Allergy status to narcotic agent
CPT/HCPCS: 87088; 85025; 81001; 87086; 80048; 36415; 83735; 81025; 85610; 80076; 84484; 83880; 80307; 71045; J2001; J0696; 93005